=== PATIENT | male | born 1945 | race Caucasian/White ===

== ENCOUNTER 2020-01-15 10:02 | Outpatient (CLI) | payer MEDICARE, SELFPAY ==
[2020-01-15 12:46] LABS: Alanine Aminotransferase 19 U/L (4-50); Alkaline Phosphatase 97 U/L (38-126); Aspartate Amino Transferase 26 U/L (17-59); Blood Urea Nitrogen 24 mg/dL (9-20); Calcium 9.5 mg/dL (8.4-10.2); Carbon Dioxide 36 mmol/L (22-30); Chloride 103 mmol/L (98-107); Cholesterol 102 mg/dL (0-200); Estimated Glomerular Filt Rate 54; Glucose 95 mg/dL (75-110); HDL Direct 28 mg/dL; LDL Cholesterol Direct 61 mg/dL; Potassium 3.8 mmol/L (3.4-5.0); Sodium 143 mmol/L (137-145); Triglycerides 40 mg/dL (<150)
== END 2020-01-15 10:03 | disposition home or self-care (01) ==
LOC: ANHLAB 10:06
PROVIDERS: PCP Internal Medicine; Visit Provider Nurse Practitioner
DX: E78.5 Hyperlipidemia, unspecified (principal)
CPT/HCPCS: 36415; 80053; 80061

== ENCOUNTER 2020-01-26 13:26 | Outpatient (RCR) | payer MEDICARE, SELFPAY ==
--- NOTE | 2020-01-26 15:10 | PTOPEVAL ---
PHYSICAL THERAPY EVALUATION AND PLAN OF CARE 01-26-2020 The PT evaluation was completed today for the diagnosis of B LE lymphedema. His plan of treatment is scheduled 2-3 x/week for 6 weeks. Treatment will begin when he obtains the reduction, compression garment for his treatment. Thank you for referring Candido Gonzalez to [facility]. Please review, sign, date and return this plan of care [email or web address]. I agree with and certify that the following plan of care is medically necessary. Referring Physician Date Attending Provider: DO Sruthi DonaldsonPT Outpatient Evaluation Start: 01/26/20 13:42 Document 01/26/20 13:42 MARKUS (Rec: 01/26/20 15:07 MARKUS [id number]) Outpatient Past Medical History Past Medical History Source of Past Medical History Patient Neurological History Hx Neurological Disorders No Significant History Cardiovascular History Hx Atrial Fibrillation Yes Hx Hypercholesterolemia Yes Hx Hypertension Yes Hx Other Cardiac Disorders Yes: cardiac stents ~ 2011 Respiratory History Hx Other Respiratory Disorders Yes: seasonal allergies, SOB with exertion Gastrointestinal History Hx Gastrointestinal Disorders No Significant History Genitourinary History Hx Prostatectomy Yes Musculoskeletal History Hx Other Musculoskeletal Disorders Yes: 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 Endocrine History Hx Endocrine Disorders No Significant History HEENT History Hx Other HEENT Disorders Yes: decreased hearing L ear Integumentary History Hx Excision Skin Lesion Yes: R back- skin cancer removed Other History Hx Other Medical Conditions Yes: severe sun burn B lower legs- legs raw,blistered Evaluation Information Problem Diagnosis B LE lymphedema Onset 1 year Previous Treatments Previous Treatments For This Problem no previous treatment for lymphedema Prior Level of Function Activity Level (Last 3 Months) Occupation own tow truck, work varies, few hours/day to all day; drive truck Activity of Daily Living Ability Independent Indoor/Home Mobility Independent Community Mobility Independent Stairs Ability Independent Functional Cognition (Planning, Shopping Independent , Taking Medications) Cooking Yes Cleaning Yes Laundry Yes Shopping Yes Driving Yes Medications Home Meds (Include: OTC, RX, Vitamins, pradaxa, diltiazem, furosemide Herbals, Dose, Route,and Frequency) , toprol, potassium chlor, Query Text:Home Med En
--- NOTE | 2020-04-05 16:11 | PCPTNOTE ---
PHYSICAL THERAPY DISCHARGE 04-05-2020 Attending Provider: Jerry Reeves DO Patient:Candido Gonzalez Date of :1945 Candido has not returned for any further treatments since the initial PT evaluation on 01/26/2020, for the diagnosis of LE lymphedema. Therefore he will be discharged at this time. The goals have not been assessed. Thank you [facility]. Please review, sign, date and return this discharge summary [email or web address]. I have been updated about the patient's current status and I agree with discharge from the above service at this time. Referring Physician Date
== END 2020-04-06 07:45 | disposition home or self-care (01) ==
LOC: ANHPT 13:26
PROVIDERS: PCP Internal Medicine; Visit Provider Internal Medicine
DX: I89.0 Lymphedema, not elsewhere classified (principal)
CPT/HCPCS: 97161

== ENCOUNTER 2020-05-24 10:52 | Outpatient (CLI) | payer MEDICARE, SELFPAY ==
[2020-05-24 12:05] LABS: Anion Gap 10.99999 mmol/L (8-16); Blood Urea Nitrogen 40 mg/dL (9-20); Calcium 9.8 mg/dL (8.4-10.2); Carbon Dioxide > 40 mmol/L (22-30); Chloride 89 mmol/L (98-107); Estimated Glomerular Filt Rate 39; Glucose 93 mg/dL (75-110); Potassium 2.9 mmol/L (3.4-5.0); Sodium 140 mmol/L (137-145)
== END 2020-05-24 10:53 | disposition home or self-care (01) ==
PROVIDERS: PCP Internal Medicine; Visit Provider Internal Medicine Cardiovascular Disease
DX: I50.32 Chronic diastolic (congestive) heart failure (principal); I89.0 Lymphedema, not elsewhere classified
CPT/HCPCS: 36415; 80048

== ENCOUNTER 2020-06-04 08:04 | Outpatient (CLI) | payer MEDICARE, SELFPAY ==
[2020-06-04 08:45] LABS: Anion Gap 3 mmol/L (8-16); Blood Urea Nitrogen 19 mg/dL (9-20); Calcium 9.1 mg/dL (8.4-10.2); Carbon Dioxide 37 mmol/L (22-30); Chloride 102 mmol/L (98-107); Estimated Glomerular Filt Rate 54; Glucose 99 mg/dL (75-110); Potassium 4.1 mmol/L (3.4-5.0); Sodium 142 mmol/L (137-145)
== END 2020-06-04 08:05 | disposition home or self-care (01) ==
PROVIDERS: PCP Internal Medicine; Visit Provider Internal Medicine Cardiovascular Disease
DX: I89.0 Lymphedema, not elsewhere classified (principal)
CPT/HCPCS: 36415; 80048

== ENCOUNTER 2020-07-14 08:49 | Outpatient (CLI) | payer MEDICARE, SELFPAY ==
[2020-07-14 09:31] LABS: Anion Gap 4 mmol/L (8-16); Blood Urea Nitrogen 20 mg/dL (9-20); Calcium 9.2 mg/dL (8.4-10.2); Carbon Dioxide 36 mmol/L (22-30); Chloride 104 mmol/L (98-107); Estimated Glomerular Filt Rate 59; Glucose 92 mg/dL (75-110); Potassium 4.3 mmol/L (3.4-5.0); Sodium 144 mmol/L (137-145)
== END 2020-07-14 08:50 | disposition home or self-care (01) ==
PROVIDERS: PCP Internal Medicine; Visit Provider Nurse Practitioner Adult Health
DX: I89.0 Lymphedema, not elsewhere classified (principal)
CPT/HCPCS: 36415; 80048

== ENCOUNTER 2021-01-05 11:30 | Outpatient (CLI) | payer MEDICARE, SELFPAY ==
--- NOTE | ~2021-01-05 | XR_ITS ---
EXAMINATION: XR chest 2V DATE: 01/05/2021 11:47 INDICATION: Cough. TECHNIQUE: Frontal and lateral views of the chest were obtained. COMPARISON: Chest 2 views 08/04/2019 FINDINGS: There is blunting of the posterior costophrenic angles. No pneumonia or pneumothorax. Cardi omegaly is noted. There is mild chronic anterior wedging of multiple vertebral bodies. IMPRESSION: 1. Blunting of the posterior costophrenic angles, which may be scarring or tiny pleural effusions. 2. Cardiomegaly. Reviewed, dictated and finalized at location B.
[2021-01-05 12:04] LABS: Basophils Percent Auto 0.5 % (0.2-1.2); Eosinophils Absolute Auto 0.1 K/mm3 (0-0.3); Hematocrit 36.8 % (42.0-52.0); Hemoglobin 11.6 g/dL (14.0-18.0); Immature Granulocyte Absolute 0.01 K/mm3 (0.00-0.031); Immature Granulocyte Percent A 0.2 % (0-0.5); Lymphocytes Absolute Auto 0.93 K/mm3 (0.9-3.2); Lymphocytes Percent Auto 16.8 % (18.3-44.2); Mean Corpuscular HGB Conc 31.5 g/dl (32-36); Mean Corpuscular Hemoglobin 30.2 pg (26-34); Mean Corpuscular Volume 95.8 fl (80-100); Mean Platelet Volume 9.6 fl (7.4-10.4); Monocytes Absolute Auto 0.5 K/mm3 (0.1-0.6); Monocytes Percent Auto 9.4 % (2.6-8.5); Neutrophils Absolute Auto 3.9 K/mm3 (1.3-6.7); Neutrophils Percent Auto 71.1 % (45.5-73.1); Platelet Count Result 125 k/mm3 (150-375); Red Blood Count 3.84 M/mm3 (4.6-6.20); Red Cell Distribution Width 13.8 % (11.5-14.5); White Blood Count 5.5 K/mm3 (4.5-10.0)
[2021-01-05 12:53] LABS: Alanine Aminotransferase 19 U/L (4-50); Albumin Level 3.8 g/dL (3.5-5.1); Alkaline Phosphatase 86 U/L (38-126); Anion Gap 3 mmol/L (8-16); Aspartate Amino Transferase 23 U/L (17-59); Bilirubin,Total 1.2 mg/dL (0.2-1.3); Blood Urea Nitrogen 20 mg/dL (9-20); Calcium 9.6 mg/dL (8.4-10.2); Carbon Dioxide 36 mmol/L (22-30); Chloride 106 mmol/L (98-107); Cholesterol 106 mg/dL (0-200); Estimated Glomerular Filt Rate > 60; Glucose 87 mg/dL (75-110); HDL Direct 36 mg/dL; Potassium 4.1 mmol/L (3.4-5.0); Sodium 145 mmol/L (137-145); Triglycerides 39 mg/dL (<150)
[2021-01-05 13:04] LABS: LDL Cholesterol Direct 55 mg/dL
[2021-01-05 13:22] LABS: Thyroid Stimulating Hormone 0.432 uIU/mL (0.465-4.680)
== END 2021-01-05 11:31 | disposition home or self-care (01) ==
LOC: ANHIMG 11:30
PROVIDERS: PCP Internal Medicine; Visit Provider Nurse Practitioner
DX: I48.0 Paroxysmal atrial fibrillation (principal); R53.83 Other fatigue; E78.5 Hyperlipidemia, unspecified; D64.9 Anemia, unspecified; R05 Cough
CPT/HCPCS: 36415; 71046; 80053; 80061; 84443; 85025

== ENCOUNTER 2021-06-21 13:32 | Outpatient (CLI) | payer MEDICARE, SELFPAY ==
--- NOTE | ~2021-06-21 | US_ITS ---
EXAMINATION: US venous doppler LE BI EXAM DATE: 06/21/2021 14:44 INDICATION: Bilateral leg swelling. TECHNIQUE: Multiple grayscale, color flow and Doppler images of the lower extremity venous systems bi laterally were obtained and reviewed. Saphenous venous mapping. The exam was reviewed on 06/21/2021. There is no prior study for comparison. FINDINGS: Right side: The right common femoral, femoral and profunda veins demonstrate normal color flow, respi ratory variation, augmentation and compressibility. Compressibility, color flow confirmed within the right popliteal, posterior tibial, peroneal, and greater saphenous veins. Right calf edema. Right Standing Venous Mapping: reflux seconds duration; vein size. Greater saphenous origin: 0 seconds; 8.4 mm. Greater saphenous mid thigh:------ 1 second; 5.4 mm. Greater saphenous below knee:--- 1 seconds; 8.9 mm. Lesser saphenous proximally:------ 0 seconds; 5.5 mm. Lesser saphenous distally: 0 seconds; 3.6 mm. Left side: The left common femoral, femoral and profunda veins demonstrate normal color flow, respira tory variation, augmentation and compressibility. Compressibility, color flow confirmed within the l eft popliteal, posterior tibial, peroneal, and greater saphenous veins. Calf edema. Left Standing Venous Mapping: reflux seconds duration; vein size. Greater saphenous origin: 0 seconds; 9.1 mm. Greater saphenous mid thigh:------ 0 seconds; 7.0 mm. Greater saphenous below knee:--- 0.5 seconds; 5.5 mm. Lesser saphenous proximally:------ 0 seconds; 6.4 mm. Lesser saphenous distally: 1.5 seconds; 5.3 mm. IMPRESSION: 1. Bilateral venous reflux as above. 2. Bilateral calf edema. Reviewed, dictated and finalized at location A. [facility]
== END 2021-06-21 13:33 | disposition home or self-care (01) ==
LOC: ANHIMG 13:35
PROVIDERS: PCP Internal Medicine; Visit Provider Internal Medicine Cardiovascular Disease
DX: M79.89 Other specified soft tissue disorders (principal); R60.0 Localized edema
CPT/HCPCS: 93970

== ENCOUNTER 2021-07-08 10:02 | Outpatient (CLI) | payer MEDICARE, SELFPAY ==
[2021-07-08 10:45] LABS: Basophils Percent Auto 0.7 % (0.2-1.2); Eosinophils Absolute Auto 0.2 K/mm3 (0-0.3); Eosinophils Percent Auto 2.9 % (0-4.4); Hematocrit 38.4 % (42.0-52.0); Hemoglobin 12.4 g/dL (14.0-18.0); Immature Granulocyte Absolute 0.01 K/mm3 (0.00-0.031); Immature Granulocyte Percent A 0.2 % (0-0.5); Immature Platelet Fraction Pct 2.4 % (0.9-11.2); Lymphocytes Percent Auto 17.9 % (18.3-44.2); Mean Corpuscular HGB Conc 32.3 g/dl (32-36); Mean Corpuscular Volume 99.2 fl (80-100); Mean Platelet Volume 9.8 fl (7.4-10.4); Monocytes Absolute Auto 0.5 K/mm3 (0.1-0.6); Monocytes Percent Auto 8.9 % (2.6-8.5); Neutrophils Absolute Auto 3.9 K/mm3 (1.3-6.7); Neutrophils Percent Auto 69.4 % (45.5-73.1); Platelet Count Result 140 k/mm3 (150-375); Red Blood Count 3.87 M/mm3 (4.6-6.20); Red Cell Distribution Width 13.4 % (11.5-14.5); White Blood Count 5.6 K/mm3 (4.5-10.0)
[2021-07-08 10:54] LABS: Alanine Aminotransferase 17 U/L (4-50); Albumin Level 3.6 g/dL (3.5-5.1); Alkaline Phosphatase 80 U/L (38-126); Anion Gap 2 mmol/L (8-16); Aspartate Amino Transferase 22 U/L (17-59); Bilirubin,Total 0.7 mg/dL (0.2-1.3); Blood Urea Nitrogen 22 mg/dL (9-20); Calcium 9.4 mg/dL (8.4-10.2); Carbon Dioxide 38 mmol/L (22-30); Chloride 100 mmol/L (98-107); Cholesterol 95 mg/dL (0-200); Estimated Glomerular Filt Rate 59; Glucose 96 mg/dL (65-110); HDL Direct 32 mg/dL; Potassium 4.2 mmol/L (3.4-5.0); Sodium 140 mmol/L (137-145); Triglycerides 36 mg/dL (<150)
[2021-07-08 11:05] LABS: LDL Cholesterol Direct 51 mg/dL
== END 2021-07-08 10:03 | disposition home or self-care (01) ==
LOC: ANHLAB 10:10
PROVIDERS: PCP Internal Medicine; Referring Provider Internal Medicine Cardiovascular Disease; Visit Provider Nurse Practitioner
DX: D64.9 Anemia, unspecified (principal); I48.0 Paroxysmal atrial fibrillation; E78.5 Hyperlipidemia, unspecified
CPT/HCPCS: 36415; 80053; 80061; 85025; 85055

== ENCOUNTER 2022-01-12 13:28 | Outpatient (CLI) | payer MEDICARE, SELFPAY ==
[2022-01-12 14:35] LABS: Hematocrit 39.8 % (42.0-52.0); Hemoglobin 12.6 g/dL (14.0-18.0)
[2022-01-12 14:38] LABS: Alanine Aminotransferase 16 U/L (6-50); Albumin Level 3.9 g/dL (3.5-5.1); Alkaline Phosphatase 94 U/L (38-126); Anion Gap 4 mmol/L (8-16); Aspartate Amino Transferase 25 U/L (17-59); Bilirubin,Total 1.4 mg/dL (0.2-1.3); Blood Urea Nitrogen 22 mg/dL (9-20); Carbon Dioxide 34 mmol/L (22-30); Chloride 103 mmol/L (98-107); Cholesterol 106 mg/dL (0-200); Estimated Glomerular Filt Rate > 60; Glucose 88 mg/dL (65-110); HDL Direct 34 mg/dL; Sodium 141 mmol/L (137-145); Triglycerides 46 mg/dL (<150)
[2022-01-12 14:49] LABS: LDL Cholesterol Direct 60 mg/dL
[2022-01-12 16:17] LABS: Thyroid Stimulating Hormone 0.558 uIU/mL (0.465-4.680)
== END 2022-01-12 13:29 | disposition home or self-care (01) ==
LOC: ANHLAB 13:29
PROVIDERS: PCP Internal Medicine; Visit Provider Internal Medicine
DX: D64.9 Anemia, unspecified (principal); I25.10 Atherosclerotic heart disease of native coronary artery without angina pectoris; I10 Essential (primary) hypertension; E78.5 Hyperlipidemia, unspecified; I48.0 Paroxysmal atrial fibrillation; R79.89 Other specified abnormal findings of blood chemistry
CPT/HCPCS: 36415; 80053; 80061; 84443; 85014; 85018

== ENCOUNTER 2022-02-01 12:22 | Inpatient (IN) | payer MEDICARE, SELFPAY ==
[2022-02-01] VITALS (13 sets, daily range): BP systolic 103–142; BP diastolic 57–77; PULSE 58–84; RESP 16–23; TEMP 36.1–36.6; O2SAT 94–100
--- NOTE | ~2022-02-01 | CT_ITS ---
EXAMINATION: CT facial & cervical spine wo DATE: 02/01/2022 12:55 INDICATION: Head injury. TECHNIQUE: Computed tomography (CT) of the maxillofacial region and cervical spine was performed with out intravenous contrast. Automated exposure control and iterative reconstruction technique were empl oyed. The dose-length product was 655.73 mGy-cm. COMPARISON: None FINDINGS: MAXILLOFACIAL CT: There is a hematoma of the forehead. There is mild mucosal thickening in the paranasal sinuses. There are likely changes of ocular lens replacement surgeries. There is a nondisplaced fracture of left na tulio bone. CERVICAL SPINE CT: There is 2 mm retrolisthesis of C3 on C4. Vertebral body heights are normal. There is moderately decr eased disc height at C3-C4. The following disc levels are specifically discussed: C2-C3: There is mild bilateral uncovertebral joint osteoarthritis. There is moderate right and severe left facet joint osteoarthritis. There is no neural foraminal stenosis. There is no central canal st enosis. C3-C4: There is severe bilateral uncovertebral joint osteoarthritis. There is mild bilateral facet halina int osteoarthritis. There is severe bilateral neural foraminal stenosis. There is mild central canal stenosis. C4-C5: There is mild bilateral uncovertebral joint osteoarthritis. There is moderate right and severe left facet joint osteoarthritis. There is mild bilateral neural foraminal stenosis. There is mild ce ntral canal stenosis. C5-C6: There is no uncovertebral joint osteoarthritis. There is mild right and severe left facet join t osteoarthritis. There is mild bilateral neural foraminal stenosis. There is no central canal stenos is. C6-C7: There is no uncovertebral joint osteoarthritis. There is mild bilateral facet joint osteoarthr itis. There is mild left neural foraminal stenosis. There is no central canal stenosis. C7-T1: There is no uncovertebral joint osteoarthritis. There is moderate bilateral facet joint osteoa rthritis. There is mild left neural foraminal stenosis. There is no central canal stenosis. IMPRESSION: 1. Fracture of left nasal bone. 2. Moderate cervical spondylosis. Reviewed, dictated and finalized at location A.
--- NOTE | ~2022-02-01 | XR_ITS ---
EXAMINATION: XR chest 1V DATE: 02/01/2022 12:58 INDICATION: Fall TECHNIQUE: frontal view of the chest was obtained. COMPARISON: Chest radiograph dated 01/05/2021 FINDINGS: Cardiomegaly with pulmonary vascular congestion. Mild opacities in the right upper lung zone and left perihilar region. No pleural effusion or pneumothorax. 1 cm calcification in the right upper quadran t. There are bridging osteophytes at multiple levels in the spine, consistent with diffuse idiopathic skeletal hyperostosis (DISH). IMPRESSION: 1. Cardiomegaly with pulmonary vascular congestion. 2. Mild opacities in the right upper lung zone and left perihilar region which could represent atelec tasis, mild pulmonary edema or pneumonia. 2. 1 cm opacity in right upper quadrant which could represent a gallstone, renal stone, diverticulum or material within the fecal stream. Reviewed, dictated and finalized at location B. IMPRESSION: 1. Cardiomegaly with pulmonary vascular congestion. 2. Mild opacities in the right upper lung zone and left perihilar region which could represent atelectasis, mild pulmonary edema or pneumonia. 2. 1 cm opacity in right upper quadrant which could represent a gallstone, kait l stone, diverticulum or material within the fecal stream.
--- NOTE | ~2022-02-01 | CT_ITS ---
EXAMINATION: CT brain wo con DATE: 02/01/2022 12:55 INDICATION: Unsteady gait. Face injury. TECHNIQUE: Computed tomography (CT) of the head was performed without intravenous contrast. The mA wa s adjusted according to patient size. Iterative reconstruction technique was employed. The dose-lengt h product was 681.00 mGy-cm. COMPARISON: None FINDINGS: There is no intracranial hemorrhage, acute infarction, or abnormal intracranial mass lesion . The ventricles are normal in size. There are likely changes of ocular lens replacement surgeries. T here is mild mucosal thickening in the paranasal sinuses. There is a hematoma at the forehead. The ma stoid air cells are normal. IMPRESSION: 1. Normal brain. Reviewed, dictated and finalized at location A. IMPRESSION: 1. Normal brain.
--- NOTE | ~2022-02-01 | XR_ITS ---
EXAMINATION: XR pelvis 1-2V DATE: 02/01/2022 12:58 INDICATION: Pelvis injury. TECHNIQUE: An anteroposterior view of the pelvis was obtained. COMPARISON: None. FINDINGS: Bone alignment is normal. No fracture. There is mild osteoarthritis of the hips. There is m oderate lumbar spondylosis. IMPRESSION: 1. No fracture. 2. Mild osteoarthritis of the hips. Reviewed, dictated and finalized at location A.
--- NOTE | 2022-02-01 12:34 | ED.FALL ---
HPI - Fall General Chief Complaint: Fall Stated Complaint: fall Source: RN notes reviewed History of Present Illness HPI Narrative: Patient presents emergency department from home via EMS for fall. Patient states that he was standing when he lost his balance and fell onto concrete. States that he hit his head at that time and has a swelling and ecchymosis over the forehead as well as abrasions over the forehead and nose and upper lip also with abrasions to the right hand he denies any loss of consciousness states he is on Pradaxa. He denies any chest pain shortness of breath abdominal pain, nausea vomiting numbness or tingling extremities or any other symptoms. Unsure of his last tetanus shot. Related Data Home Medications Medication Instructions Recorded Confirmed atorvastatin 40 mg tablet 40 mg PO 1700 08/04/19 02/01/22 dabigatran etexilate 150 mg 150 mg PO BID 08/04/19 02/01/22 capsule (Pradaxa) metoprolol succinate 50 mg 100 mg PO 1700 08/04/19 02/01/22 tablet,extended release 24 hr potassium chloride 10 mEq 10 meq PO 0 08/04/19 02/01/22 tablet,extended release (Klor-Con) diltiazem HCl 180 mg 180 mg PO DAILY 01/05/21 02/01/22 capsule,extended release 24 hr terazosin 10 mg capsule 10 mg PO 1700 02/01/22 02/01/22 Allergies Allergy/AdvReac Type Severity Reaction Status Date / Time dutasteride Allergy Unknown Unknown Verified 02/01/22 18:04 finasteride Allergy Unknown Unknown Verified 02/01/22 18:04 Penicillins Allergy Unknown Unknown Verified 02/01/22 18:04 Review of Systems Review of Systems: Gen.: Denies fevers or chills Eyes: Denies eye pain or visual change ENT: Reports head injury Respiratory: Denies shortness of breath or cough CV: Denies chest pain or palpitations GI: Denies abdominal pain nausea, emesis or diarrhea Musculoskeletal: Denies back pain or muscle pain Neuro: Denies numbness, tingling, weakness or focal weakness Skin: See HPI Except as documented, all other systems reviewed and negative [facility] Past Medical History Medical History (Updated 02/01/22 @ 19:37 by Ramiro Escudero DO) Essential (primary) hypertension Family History Family History (Updated 02/01/22 @ 17:56 by Tracy Fontanez RN) Father Patient's father is Carcinoma of colon Mother Heart disease Grandparent Cerebrovascular accident Social History Social History Smoking status: Never smoker Alcohol intake: never Substance use: never Spiritual care concerns: Yes Exam Narrative: APPEARANCE: No acute distress, nontoxic, resting in bed EYES: EOMI HEENT: Normocephalic, swelling and ecchymosis over the anterior forehead superficial abrasions over the bridge of the nose as well as the anterior forehead there is a small 1 cm curved laceration of the left upper lobe with mild venous bleeding no foreign bodies nares are patent oral mucosa moist Neck: C-collar present no midline tenderness palpation tender palpation by paravertebral muscles C5-6-7 RESPIRATORY: No respiratory distress Clear to auscultation bilaterally with no rhonchi wheezing or rales. CARDIOVASCULAR: Regular rate and rhythm without murmurs rubs or gallops. ABDOMINAL: Soft, nontender, nondistended, no rebound or guarding MUSCULOSKELETAl: Moves all extremities. No clubbing, cyanosis or edema. No tender to palpation of bilateral upper and lower extremities with full range of motion of both Back: No midline thoracic or lumbar tenderness palpation NEURO: Awake and alert x 4. Following commands, speech normal, no focal deficits SKIN:: Warm, dry. Superficial skin tears over the dorsal aspect of the left hand mild venous bleeding no foreign bodies or signs of infection PSYCHIATRIC: Normal affect/mood, Course Course Emergency Course: Patient attempted road test very unsteady on feet and had to be constantly assisted by ED staff patient states he does not walk with a cane or walker
[2022-02-01] MEDS: TETANUS,DIPHTHERIA,AC PERTUSSIS ADULT (0.5 ML) BOOSTRIX IM (13:11)
--- NOTE | 2022-02-01 14:02 | PC.NURSE ---
wounds cleaned with NS TRIPLE ANTIBX PLACED, BANDAIDS APPLIED
[2022-02-01 14:43] LABS: Basophils Percent Auto 0.4 % (0.2-1.2); Eosinophils Absolute Auto 0.1 K/mm3 (0-0.3); Eosinophils Percent Auto 0.6 % (0-4.4); Hematocrit 39.2 % (42.0-52.0); Hemoglobin 12.5 g/dL (14.0-18.0); Immature Granulocyte Absolute 0.02 K/mm3 (0.00-0.031); Immature Granulocyte Percent A 0.2 % (0-0.5); Lymphocytes Absolute Auto 0.75 K/mm3 (0.9-3.2); Lymphocytes Percent Auto 8.9 % (18.3-44.2); Mean Corpuscular HGB Conc 31.9 g/dl (32-36); Mean Corpuscular Hemoglobin 30.4 pg (26-34); Mean Corpuscular Volume 95.4 fl (80-100); Mean Platelet Volume 9.6 fl (7.4-10.4); Monocytes Absolute Auto 0.6 K/mm3 (0.1-0.6); Monocytes Percent Auto 7.5 % (2.6-8.5); Neutrophils Percent Auto 82.4 % (45.5-73.1); Platelet Count Result 153 k/mm3 (150-375); Red Blood Count 4.11 M/mm3 (4.6-6.20); Red Cell Distribution Width 13.8 % (11.5-14.5); White Blood Count 8.4 K/mm3 (4.5-10.0)
[2022-02-01 14:51] LABS: Alanine Aminotransferase 16 U/L (6-50); Albumin Level 3.7 g/dL (3.5-5.1); Alkaline Phosphatase 95 U/L (38-126); Anion Gap 5 mmol/L (8-16); Aspartate Amino Transferase 21 U/L (17-59); Bilirubin,Total 1.4 mg/dL (0.2-1.3); Blood Urea Nitrogen 20 mg/dL (9-20); Calcium 8.9 mg/dL (8.4-10.2); Carbon Dioxide 34 mmol/L (22-30); Chloride 103 mmol/L (98-107); Estimated CRCL calculation 68 ml/min; Estimated Glomerular Filt Rate > 60; Glucose 106 mg/dL (65-110); Potassium 3.9 mmol/L (3.4-5.0); Sodium 142 mmol/L (137-145)
[2022-02-01 14:57] LABS: Prothrombin Time 21.6 Seconds (11.1-14.7)
[2022-02-01 14:58] LABS: Partial Thromboplastin Time 55.3 SECONDS (22.3-36.8)
[2022-02-01 15:03] LABS: NT Pro B Type Natriuretic Pept 808 pg/mL (5-100); Troponin I < 0.012 ng/mL (0.000-0.034)
--- NOTE | 2022-02-01 15:08 | PC.NURSE ---
PT IS HIGH FALL RISK, PT GAIT IS OFF. HAS TROUBLE COMPETING ADL SAFELY
[2022-02-01] MEDS: FUROSEMIDE INJ 40 MG/4 ML VIAL IV PUSH (16:04)
--- NOTE | 2022-02-01 17:20 | PC.NURSE ---
This patient, Candido Gonzalez, was admitted to 3 [facility] Surg Room 303-01. Patient/family oriented to hospital policies and general routines including ID bracelet, bed and alarms, visiting hours, pain management, procedures, bathroom and other care routines, personal items, smoking policy, room service/diet, and visiting hours. Report received from Derrick INGRAM Information on how to activate the Rapid Response Team has been discussed. Patient/Family are encouraged to report perceived risks to care and to ask questions if they do not understand what they are told or what they should do.
[2022-02-01 18:04] LABS: Appearance Urine Slightly Cloudy (Clear); Bilirubin Urine Negative (Negative); Color Urine Yellow (Yellow); Glucose Urine UA Negative (Negative); Ketones Urine Negative (Negative); Leukocyte Esterase Ur Trace LEU/UL (Negative); Nitrate Urine Negative (Negative); Protein Urine Negative (Negative)
[2022-02-01 18:10] LABS: Add Urine Microscopic? YES; Bacteria Urine Trace /hpf; Blood Urine Trace-Intact (Negative); RBC Urine 0-2 /hpf (0-2); Squamous Epithelial Cell Urine Rare /hpf (Few); WBC Urine 0-3 /hpf
[2022-02-01 19:20] LABS: Troponin I < 0.012 ng/mL (0.000-0.034)
--- NOTE | 2022-02-01 20:57 | PM.IMHP ---
H&P: HPI History of Present Illness Date/Time: Patient was placed observation status for expected length of stay less than 23 hours for management, will plan to re-evaluate tomorrow for improvement. 02/01/22 20:57 Chief Complaint: Fall Narrative: Mr. Gonzalez is a 76-year-old gentleman who presented emergency room after falling and hitting his head on concrete. 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 Patient states that he was having intense pain to his nose and forehead and was able to use his telephone because he could not see clearly. Patient's spouse states that she was inside and did not know what was going on because she was watching [employer]. Patient states he was finally able to get assistance and EMS was called. Patient was then transported to the hospital and he was evaluated emergency room. Patient denies any chest pain, shortness a breath, lightheadedness, dizziness, syncopal, or near syncopal episodes. Patient states that he just tripped over his own feet. Patient states that he has issues walking in general. Patient states he has felt weak for quite some time and has not been ambulating as far as he used to. Patient denies using a walker or a cane for assistance. Patient states that he will [place] is close to a building as he can and avoid walking any long distances. Patient states he has a known history of chronic lymphedema and this makes it very difficult for him to walk because his legs feel very heavy. Upon evaluation in emergency room patient was noted to have significant swelling to his forehead and epistaxis. Patient states he has been taking all medications without any difficulty. Patient has a known history of chronic atrial fibrillation on anticoagulation. Patient also has a known history of COPD, hypertension, chronic lymphedema, BPH, coronary artery disease status post bare metal stent to the RCA in 2010, diastolic heart failure, and sleep apnea with no CPAP use because he ?did not want a full with the machine?. Review of Systems Review of Systems: A 12 point review of systems was completed patient all pertinent positive and negative per HPI the remainder are unremarkable. [facility] Past Medical History Medical History (Updated 02/01/22 @ 21:31 by Zeenat Guzman APRN) BPH (benign prostatic hyperplasia) CHF (congestive heart failure) Diastolic dysfunction Chronic atrial fibrillation Chronic obstructive pulmonary disease, unspecified Essential (primary) hypertension Lymphedema of both lower extremities Sleep apnea Family History Family History (Updated 02/01/22 @ 17:56 by Tracy Fontanez, NATALY) Father Patient's father is Carcinoma of colon Mother Heart disease Grandparent Cerebrovascular accident Social History Social History Smoking status: Never smoker Alcohol intake: never Substance use: never Spiritual care concerns: Yes Meds Home Medications and Allergies Home Medications Medication Instructions Recorded Confirmed Type atorvastatin 40 mg tablet 40 mg PO 1700 08/04/19 02/01/22 History dabigatran etexilate 150 mg 150 mg PO BID 08/04/19 02/01/22 History capsule (Pradaxa) metoprolol succinate 50 mg 100 mg PO 1700 08/04/19 02/01/22 History tablet,extended release 24 hr potassium chloride 10 mEq 10 meq PO 1700 08/04/19 02/01/22 History tablet,extended release (Klor-Con) furosemide 40 mg tablet 60 mg PO QAM #30 tabs 01/20/20 02/01/22 Rx diltiazem HCl 180 mg 180 mg PO DAILY 01/05/21 02/01/22 History capsule,extended release 24 hr terazosin 10 mg capsule 10 mg PO 1700 02/01/22 02/01/22 History Allergies Allergy/AdvReac Type Severity Reaction Status Date / Time dutasteride Allergy Unknown Unknow
[2022-02-01] MEDS: POTASSIUM CHLORIDE 10 MEQ TABLET.ER PO (21:21)
[2022-02-01] MEDS: METOPROLOL SUCCINATE EXT REL 50 MG TABCR 100 MG PO (21:21)
[2022-02-01] MEDS: ATORVASTATIN 40 MG TABLET PO (21:22)
[2022-02-01] MEDS: TERAZOSIN HCL 5 MG CAPSULE 10 MG PO (21:22)
[2022-02-01 21:40] LABS: Troponin I < 0.012 ng/mL (0.000-0.034)
[2022-02-02] VITALS (10 sets, daily range): BP systolic 106–116; BP diastolic 42–63; PULSE 63–77; RESP 16–20; TEMP 36–36.8; O2SAT 95–99
[2022-02-02 07:20] LABS: Basophils Percent Auto 0.4 % (0.2-1.2); Eosinophils Absolute Auto 0.1 K/mm3 (0-0.3); Eosinophils Percent Auto 1.4 % (0-4.4); Hematocrit 34.9 % (42.0-52.0); Hemoglobin 11.1 g/dL (14.0-18.0); Immature Granulocyte Absolute 0.02 K/mm3 (0.00-0.031); Immature Granulocyte Percent A 0.3 % (0-0.5); Lymphocytes Absolute Auto 0.93 K/mm3 (0.9-3.2); Lymphocytes Percent Auto 12.9 % (18.3-44.2); Mean Corpuscular HGB Conc 31.8 g/dl (32-36); Mean Corpuscular Hemoglobin 30.7 pg (26-34); Mean Corpuscular Volume 96.7 fl (80-100); Mean Platelet Volume 9.8 fl (7.4-10.4); Monocytes Absolute Auto 0.7 K/mm3 (0.1-0.6); Monocytes Percent Auto 9.2 % (2.6-8.5); Neutrophils Absolute Auto 5.5 K/mm3 (1.3-6.7); Neutrophils Percent Auto 75.8 % (45.5-73.1); Platelet Count Result 112 k/mm3 (150-375); Red Blood Count 3.61 M/mm3 (4.6-6.20); Red Cell Distribution Width 13.8 % (11.5-14.5); White Blood Count 7.2 K/mm3 (4.5-10.0)
[2022-02-02 07:34] LABS: Alanine Aminotransferase 14 U/L (6-50); Albumin Level 3.1 g/dL (3.5-5.1); Alkaline Phosphatase 79 U/L (38-126); Anion Gap 0 mmol/L (8-16); Aspartate Amino Transferase 21 U/L (17-59); Bilirubin,Total 1.2 mg/dL (0.2-1.3); Blood Urea Nitrogen 21 mg/dL (9-20); Calcium 8.5 mg/dL (8.4-10.2); Carbon Dioxide 36 mmol/L (22-30); Chloride 104 mmol/L (98-107); Estimated CRCL calculation 68 ml/min; Estimated Glomerular Filt Rate > 60; Glucose 97 mg/dL (65-110); Potassium 3.7 mmol/L (3.4-5.0); Sodium 140 mmol/L (137-145)
[2022-02-02] MEDS: FUROSEMIDE 20 MG TABLET 60 MG PO (08:37)
[2022-02-02] MEDS: DABIGATRAN ETEXILATE 150 MG CAPSULE PO (08:37)
[2022-02-02] MEDS: dilTIAZem HCL CD 180 MG CAP.ER.24H PO (08:37)
--- NOTE | 2022-02-02 16:11 | PM.IMPN ---
Progress Note: A&P Assessment and Plan (1) Fall: Code(s): W19.XXXA - Unspecified fall, initial encounter Status: Acute Assessment and Plan: Patient had a fall where he face-planted on the concrete. Denied precipitating symptoms Reports he lost his balance Implement fall precautions (2) Weakness: Code(s): R53.1 - Weakness Status: Acute Assessment and Plan: Patient states that weakness is a chronic issue for him due to his swollen lower extremties but seems to be worsened recently Appreciate PT/OT evals TSH normal. Check B12 and folate. (3) Lymphedema of both lower extremities: Code(s): I89.0 - Lymphedema, not elsewhere classified Status: Acute Assessment and Plan: Patient has chronic lymphedema. Patient has been seen by provider for this issue in the past and has been told that he will need compression stockings. Patient has been unable to obtain compression stockings because that he has not been able to find any Abhijit compression stockings if it. He may benefit from lymphedema pumps May attempt Abhijit wraps to the lower extremities that can be custom fit (4) Closed fracture nasal bone: Code(s): S02.2XXA - Fracture of nasal bones, initial encounter for closed fracture Status: Acute Assessment and Plan: On CT patient has a nondisplaced fracture of the left nasal bone secondary to fall No further intervention is needed at this time. Supportive care (5) Chronic atrial fibrillation: Code(s): I48.20 - Chronic atrial fibrillation, unspecified Status: Acute Assessment and Plan: Rate is controlled Continue metoprolol and diltiazem Will hold dabigatran due to large hematoma CHADS2-VASC score is 4. HAS-BLED score is 2. Will plan to resume dabigatran. Patient would like to continue with anticoagulation. Subjective Date/time seen: 02/02/22 16:11 Interval history: Date of service: 02/02/2022 Candido Gonzalez is a 76-year-old male with a history of CHF, atrial fibrillation on chronic anticoagulation, BPH, COPD, hypertension, LEISA, and lymphedema of bilateral lower extremities who is seen in follow up for generalized weakness secondary to fall. Patient states he lost his balance. He denied precipitating symptoms prior to fall. He is feeling well today. He has no facial pain but does endorse pretty significant swelling. His main concern at this time is that he cannot see very well without his glasses on. He is not able to wear glasses due to his facial swelling, and also he does not have the glasses with him. He denies headache. Denies visual changes including blurred vision or double vision. He does endorse neck stiffness due to lying in the bed. He does endorse feeling weak. He denies dizziness or lightheadedness. Denies abdominal pain, nausea, or vomiting. He denies urinary symptoms including dysuria or hematuria. He does have issues with urinary stream secondary to BPH. Review of Systems Review of Systems: All systems reviewed & are unremarkable except as noted in HPI and below Exam Narrative: General: well-nourished, well-appearing 76-year-old male, sitting up in bed, comfortable, NARD Neuro: awake, alert and oriented x4, speech clear, no focal neuro deficits noted HEENMT: normocephalic, atraumatic, EOMI, no subjunctovial hemorrhage or hypema, sclerae anicteric Respiratory: clear to auscultation bilaterally, nonlabored breathing Cardio: regular rate, regular rhythm with S1-S2 Abdomen: nondistended, normoactive bowel sounds, soft, nontender to palpation Extremities: 2+ edema of bilateral lower extremities, no erythema or tenderness to palpation Skin: abrasion of anterior forehead and nasal bridge with dried blood and edema, small abrasion of left upper lip, significant bilateral periorbital edema Psych: appropriate mood and affect, judgment and insight intact Objective Data Vital Signs Vit
[2022-02-02] MEDS: ATORVASTATIN 40 MG TABLET PO (17:47)
[2022-02-02] MEDS: METOPROLOL SUCCINATE EXT REL 50 MG TABCR 100 MG PO (17:47)
[2022-02-02] MEDS: TERAZOSIN HCL 5 MG CAPSULE 10 MG PO (17:47)
[2022-02-02] MEDS: POTASSIUM CHLORIDE 10 MEQ TABLET.ER PO (17:47)
[2022-02-02] MEDS: ACETAMINOPHEN 325 MG TABLET 650 MG PO (20:38)
[2022-02-03] VITALS (9 sets, daily range): BP systolic 102–118; BP diastolic 51–66; PULSE 54–80; RESP 16–20; TEMP 36.7–37; O2SAT 97–99; BMI 38.4
[2022-02-03 05:32] LABS: Hematocrit 33.7 % (42.0-52.0); Hemoglobin 10.9 g/dL (14.0-18.0); Mean Corpuscular HGB Conc 32.3 g/dl (32-36); Mean Corpuscular Hemoglobin 30.9 pg (26-34); Mean Corpuscular Volume 95.5 fl (80-100); Mean Platelet Volume 9.9 fl (7.4-10.4); Platelet Count Result 106 k/mm3 (150-375); Red Blood Count 3.53 M/mm3 (4.6-6.20); Red Cell Distribution Width 13.7 % (11.5-14.5); White Blood Count 6.2 K/mm3 (4.5-10.0)
[2022-02-03 05:44] LABS: Anion Gap 1 mmol/L (8-16); Blood Urea Nitrogen 25 mg/dL (9-20); Calcium 8.6 mg/dL (8.4-10.2); Carbon Dioxide 36 mmol/L (22-30); Chloride 103 mmol/L (98-107); Estimated CRCL calculation 68 ml/min; Estimated Glomerular Filt Rate > 60; Glucose 107 mg/dL (65-110); Potassium 3.8 mmol/L (3.4-5.0); Sodium 140 mmol/L (137-145)
[2022-02-03] MEDS: ACETAMINOPHEN 325 MG TABLET 650 MG PO ×2 (06:14→20:39)
[2022-02-03 06:47] LABS: Folic Acid 7.8 ng/mL (2.76->20)
[2022-02-03] MEDS: dilTIAZem HCL CD 180 MG CAP.ER.24H PO (09:12)
[2022-02-03] MEDS: FUROSEMIDE 20 MG TABLET 60 MG PO (09:12)
[2022-02-03] MEDS: CYANOCOBALAMIN 1,000 MCG TABLET 1000 MCG PO (10:02)
--- NOTE | 2022-02-03 14:49 | PCCCNOTE ---
On 02/03/22, the student, [Sandra Meneses], provided care and completed [facility] documentation on this patient. I have reviewed the student's documentation and agree with the findings.
--- NOTE | 2022-02-03 15:08 | PM.IMPN ---
Progress Note: A&P Assessment and Plan (1) Fall: Code(s): W19.XXXA - Unspecified fall, initial encounter Status: Acute Assessment and Plan: Patient had a fall where he face-planted on the concrete. Denied precipitating symptoms Reports he lost his balance Head CT with no acute findings Cervical spine CT with moderate cervical spondylosis however no acute injury Pelvic x-ray with no fracture Fall precautions in place (2) Weakness: Code(s): R53.1 - Weakness Status: Acute Assessment and Plan: Patient states that weakness is a chronic issue for him due to his swollen lower extremties but seems to be worsened recently Appreciate PT/OT evals TSH normal. B12 low end of normal. Will initiate supplementation. Cyanocobalamin 1000 mcg daily. Folate wnl. Home health services have been arranged (3) Closed fracture nasal bone: Code(s): S02.2XXA - Fracture of nasal bones, initial encounter for closed fracture Status: Acute Assessment and Plan: On CT patient has a nondisplaced fracture of the left nasal bone secondary to fall No further intervention is needed at this time. Supportive care (4) Lymphedema of both lower extremities: Code(s): I89.0 - Lymphedema, not elsewhere classified Status: Acute Assessment and Plan: Patient has unchanged chronic lymphedema. In the process of obtaining lymphedema pumps from his primary care provider. He will benefit from these Elevate extremities (5) Chronic atrial fibrillation: Code(s): I48.20 - Chronic atrial fibrillation, unspecified Status: Acute Assessment and Plan: Rate is controlled Continue metoprolol and diltiazem Patient on dabigatran for stroke prophylaxis. Discussed at length with patient and family risks versus benefits of continued anticoagulation especially given the patient's recent fall. CHADS2-VASC score is 4. HAS-BLED score is 2. Patient reports this was his first fall in many years. He does not seem to be at high risk for falls. At this time risk of stroke seems greater than risk of bleed. Patient feels strongly in favor of continuing dabigatran. Family in agreement. Resume dabigatran (6) Thrombocytopenia: Code(s): D69.6 - Thrombocytopenia, unspecified Status: Acute Assessment and Plan: Review of prior labs suggest this to be a chronic issue May be due to dabigatran Continue to monitor CBC Subjective Date/time seen: 02/03/22 15:08 Interval history: Date of service: 02/03/2022 Candido Gonzalez is a 76-year-old male with a history of CHF, atrial fibrillation on chronic anticoagulation, BPH, COPD, hypertension, LEISA, and lymphedema of bilateral lower extremities who is seen in follow up for generalized weakness and fall. He is doing well today. He continues to endorse rather significant facial swelling and bruising. He is having troubles with his vision still because he cannot wear his glasses. He denies visual changes including double vision, blurred vision, or tunnel vision. His neck is feeling stiff and he is having a hard time turning his head from side to side. He denies numbness or tingling in his extremities. He denies headache. Denies confusion. He was able to ambulate today with physical therapy and seemed to do well with this. He felt that his legs were a bit weak and at times he thought they might ?give out on him but he was able to remain steady. He had a bowel movement today. He denies urinary symptoms. His appetite has been good. Denies nausea, vomiting, fever, or chills. Review of Systems Review of Systems: All systems reviewed & are unremarkable except as noted in HPI and below Exam Narrative: General: well-nourished, well-appearing 76-year-old male, sitting in a chair by the bedside ADA abrams Neuro: awake, alert and oriented x4, speech clear, no focal neuro deficits noted ORALIA
[2022-02-03] MEDS: POTASSIUM CHLORIDE 10 MEQ TABLET.ER PO (16:33)
[2022-02-03] MEDS: ATORVASTATIN 40 MG TABLET PO (16:33)
[2022-02-03] MEDS: TERAZOSIN HCL 5 MG CAPSULE 10 MG PO (16:35)
[2022-02-03] MEDS: METOPROLOL SUCCINATE EXT REL 50 MG TABCR 100 MG PO (16:35)
[2022-02-04] VITALS: PULSE 54
[2022-02-04 04:00] VITALS: PULSE 64
[2022-02-04 05:26] VITALS: BP 120/61; PULSE 80; RESP 16; TEMP 36.7; O2SAT 98
[2022-02-04 06:35] LABS: Hematocrit 34.1 % (42.0-52.0); Hemoglobin 10.9 g/dL (14.0-18.0); Mean Corpuscular Hemoglobin 31.1 pg (26-34); Mean Corpuscular Volume 97.4 fl (80-100); Mean Platelet Volume 10.1 fl (7.4-10.4); Platelet Count Result 112 k/mm3 (150-375); Red Cell Distribution Width 13.9 % (11.5-14.5); White Blood Count 6.4 K/mm3 (4.5-10.0)
[2022-02-04 07:05] LABS: Anion Gap 1 mmol/L (8-16); Blood Urea Nitrogen 25 mg/dL (9-20); Calcium 8.3 mg/dL (8.4-10.2); Carbon Dioxide 36 mmol/L (22-30); Chloride 102 mmol/L (98-107); Estimated CRCL calculation 77 ml/min; Estimated Glomerular Filt Rate > 60; Glucose 89 mg/dL (65-110); Potassium 3.9 mmol/L (3.4-5.0); Sodium 139 mmol/L (137-145)
[2022-02-04 08:00] VITALS: PULSE 79
[2022-02-04] MEDS: dilTIAZem HCL CD 180 MG CAP.ER.24H PO (08:51)
[2022-02-04] MEDS: FUROSEMIDE 20 MG TABLET 60 MG PO (08:51)
[2022-02-04] MEDS: CYANOCOBALAMIN 1,000 MCG TABLET 1000 MCG PO (08:51)
[2022-02-04] MEDS: DABIGATRAN ETEXILATE 150 MG CAPSULE PO (09:25)
--- NOTE | 2022-02-04 11:24 | PM.DS ---
DS: Admitting Diagnosis Discharge Date 02/04/2022 Admitting Diagnosis Fall DS: Discharge Diagnosis Discharge Diagnosis (1) Fall: Code(s): W19.XXXA - Unspecified fall, initial encounter Status: Acute Assessment and Plan: Patient had a fall where he face-planted on the concrete. Denied precipitating symptoms Reports he lost his balance Head CT with no acute findings Cervical spine CT with moderate cervical spondylosis however no acute injury Pelvic x-ray with no fracture Sustained laceration of upper lip which was closed with 3 nylon sutures. Suture removal 2-3 days following discharge. Fall precautions implemented (2) Weakness: Code(s): R53.1 - Weakness Status: Acute Assessment and Plan: Patient states that weakness is a chronic issue for him due to his swollen lower extremties but seems to be worsened recently TSH normal. B12 low end of normal. Will initiate supplementation. Cyanocobalamin 1000 mcg daily. Folate wnl. Participated in PT/OT during admission Home health services have been arranged (3) Closed fracture nasal bone: Code(s): S02.2XXA - Fracture of nasal bones, initial encounter for closed fracture Status: Acute Assessment and Plan: On CT patient has a nondisplaced fracture of the left nasal bone secondary to fall No further intervention is needed at this time. Supportive care provided (4) Lymphedema of both lower extremities: Code(s): I89.0 - Lymphedema, not elsewhere classified Status: Acute Assessment and Plan: Patient has unchanged chronic lymphedema. In the process of obtaining lymphedema pumps from his primary care provider. He will benefit from these Elevate extremities when lying or sitting (5) Chronic atrial fibrillation: Code(s): I48.20 - Chronic atrial fibrillation, unspecified Status: Acute Assessment and Plan: Rate is controlled Continue metoprolol and diltiazem Patient on dabigatran for stroke prophylaxis. Discussed at length with patient and family risks versus benefits of continued anticoagulation especially given the patient's recent fall. CHADS2-VASC score is 4. HAS-BLED score is 2. Patient reports this was his first fall in many years. At this time risk of stroke seems greater than risk of bleed. Patient feels strongly in favor of continuing dabigatran. Family in agreement. (6) Thrombocytopenia: Code(s): D69.6 - Thrombocytopenia, unspecified Status: Acute Assessment and Plan: Review of prior labs suggest this to be a chronic issue May be due to dabigatran Continue to monitor CBC DS: Summary Hospital Course Hospital Course: Date of admission: 02/01/2022 Date of discharge: 02/04/2022 Canddio Gonzalez is a 76-year-old male with a history of CHF, atrial fibrillation on chronic anticoagulation, BPH, COPD, hypertension, LEISA, and lymphedema of bilateral lower extremities who presented to the emergency department on 02/01/22 after suffering a fall in which he lost his balance and fell on to the concrete. He fell face first and scraped his forehead, lip, and right hand. He did not lose consciousness. He did have to make several attempts to call for help using his phone as he had difficulty seeing due to breaking his glasses in the fall. He did make a couple of attempts to get himself up but ultimately required assistance. On presentation to the emergency department, his vital signs were stable, laboratory workup was unremarkable, CT of the head with no acute findings, facial bone CT showed fracture of the left nasal bone, and pelvis x-ray showed no fracture. He did have a laceration of the upper lip which was closed with 3 nylon sutures. He received an updated tetanus shot. He was admitted to the hospitalist service for further evaluation and management. Please see above for further details. His pain was well controlled and his facial swe
[2022-02-04 12:00] VITALS: PULSE 62
== END 2022-02-04 13:50 | disposition home health service (06) | DRG 155 ==
LOC: ANHED 13:05 → ANH3MEDSUR 16:48
PROVIDERS: Physician Assistant; Admitting Provider Student in an Organized Health Care Education/Training Program; Emergency Provider Emergency Medicine; PCP Internal Medicine; Visit Provider Family Medicine
DX: S02.2XXA Fracture of nasal bones, initial encounter for closed fracture (principal); I48.20 Chronic atrial fibrillation, unspecified; I50.32 Chronic diastolic (congestive) heart failure; S01.511A Laceration without foreign body of lip, initial encounter; S61.401A Unspecified open wound of right hand, initial encounter; R53.1 Weakness; W01.0XXA Fall on same level from slipping, tripping and stumbling without subsequent striking against object, initial encounter; D69.6 Thrombocytopenia, unspecified; G47.33 Obstructive sleep apnea (adult) (pediatric); I25.10 Atherosclerotic heart disease of native coronary artery without angina pectoris; I11.0 Hypertensive heart disease with heart failure; I89.0 Lymphedema, not elsewhere classified; J44.9 Chronic obstructive pulmonary disease, unspecified; M47.812 Spondylosis without myelopathy or radiculopathy, cervical region; N40.0 Benign prostatic hyperplasia without lower urinary tract symptoms; R26.89 Other abnormalities of gait and mobility; R04.0 Epistaxis; Z79.01 Long term (current) use of anticoagulants; Z95.5 Presence of coronary angioplasty implant and graft; Z88.0 Allergy status to penicillin; Z23 Encounter for immunization
CPT/HCPCS: 12011; 36415; 70450; 70486; 71045; 72125; 72170; 80048; 80053; 81001; 82607; 82746; 83880; 84484; 85025; 85027; 85055; 85610; 85730; 90471; 90715; 93005; 96374; 97110; 97116; 97161; 97165; 99285; A9270; G0378; J1940

== ENCOUNTER 2022-02-28 00:16 | Day surgery (SDC) | payer MEDICARE, SELFPAY ==
[2022-02-17 15:23] VITALS: BMI 38.4
[2022-02-28 10:16] VITALS: BP 128/70; PULSE 94; RESP 20; TEMP 36.8; O2SAT 97
[2022-02-28] MEDS: LACTATED RINGERS 1,000 ML 150 ML IV CONT (10:26)
--- NOTE | 2022-02-28 11:02 | PM.IMHP ---
H&P: HPI History of Present Illness Date/Time: 02/28/22 11:02 Chief Complaint: History of colon polyps and family history of colon cancer. Narrative: This is a 76-year-old white male patient presents today for screening colonoscopy. Patient has prior history of colon polyps in 2017. Family history is significant his father had colon cancer. Patient presents today for surveillance colonoscopy. Reports his bowel habits are normally has had no bleeding. Past medical history is significant for congestive heart failure and atherosclerotic heart disease, atrial fibrillation followed by Cardiology Service. He also has had lymphedema of the lower extremities. Review of Systems Review of Systems: Review of systems noncontributory. [facility] Past Medical History Medical History (Updated 02/28/22 @ 11:04 by Huey Westfall MD) BPH (benign prostatic hyperplasia) CHF (congestive heart failure) Diastolic dysfunction Chronic atrial fibrillation Chronic obstructive pulmonary disease, unspecified Essential (primary) hypertension Lymphedema of both lower extremities Sleep apnea Family History Family History (Updated 02/01/22 @ 17:56 by Tracy Fontanez RN) Father Patient's father is Carcinoma of colon Mother Heart disease Grandparent Cerebrovascular accident Social History Social History Smoking status: Never smoker Alcohol intake: never Substance use: never Substance use type: does not use Living arrangements: with family Spiritual care concerns: No Meds Home Medications and Allergies Home Medications Medication Instructions Recorded Confirmed Type atorvastatin 40 mg tablet 40 mg PO DAILY 08/04/19 02/28/22 History dabigatran etexilate 150 mg 150 mg PO BID 08/04/19 02/28/22 History capsule (Pradaxa) metoprolol succinate 50 mg 100 mg PO DAILY 08/04/19 02/28/22 History tablet,extended release 24 hr potassium chloride 10 mEq 10 meq PO DAILY 08/04/19 02/28/22 History tablet,extended release (Klor-Con) furosemide 40 mg tablet 60 mg PO QAM #30 tabs 01/20/20 02/28/22 Rx diltiazem HCl 180 mg 180 mg PO DAILY 01/05/21 02/28/22 History capsule,extended release 24 hr terazosin 10 mg capsule 10 mg PO DAILY 02/01/22 02/28/22 History Allergies Allergy/AdvReac Type Severity Reaction Status Date / Time dutasteride Allergy Unknown Unknown Verified 02/28/22 10:15 finasteride Allergy Unknown Unknown Verified 02/28/22 10:15 Penicillins Allergy Unknown Unknown Verified 02/28/22 10:15 Vital Signs Vital Signs - 24 hr 02/28/22 10:16 Temperature 98.3 F Pulse Rate 94 Respiratory Rate 20 Blood Pressure 128/70 Pulse Oximetry 97 Oxygen Delivery Room Air Exam Narrative: Physical exam reveals patient be alert. Vital signs stable. HEENT exam is unremarkable. Patient is anicteric. Lungs are clear to auscultation and percussion. Heart is without murmur or extra sounds. Abdomen bowel sounds present soft nontender with no organomegaly. Digital external rectal exam is normal. Assessment and Plan Assessment and plan (1) Screening for colon cancer: Code(s): Z12.11 - Encounter for screening for malignant neoplasm of colon Status: Acute (2) Family history of colon cancer in father: Code(s): Z80.0 - Family history of malignant neoplasm of digestive organs Status: Acute Assessment and Plan: Patient's father had colon cancer. For this reason screening colonoscopy advised at this time. He may benefit from follow-up in the future if general medical health allows at 5 year intervals. (3) History of colon polyps: Code(s): Z86.010 - Personal history of colonic polyps Status: Acute Assessment and Plan: Patient had previous history of colon polyps. Most recent colonoscopy 2017. Plan is for surveillance colonoscopy now. Consider this a 5 year intervals of general health al
--- NOTE | 2022-02-28 11:11 | WPDANESEPPF ---
Anes - Initial Pre Proc Eval Procedure: Operation Date: 02/28/22 11:30 Proposed Procedures p Screening Colonoscopy - Huey Westfall MD Date/Time: 02/28/22 11:11 Surgeon: Huey Westfall MD Pre Op Diagnosis: hx of colon polyps, family hx colon ca Patient Data Age: 76 Gender: M Height: 1.85 m Weight: 126.3 kg Last Vital Signs Temp 98.3 F 02/28/22 10:16 Pulse 94 02/28/22 10:16 Resp 20 02/28/22 10:16 BP 128/70 02/28/22 10:16 Pulse Ox 97 02/28/22 10:16 O2 Del Method Room Air 02/28/22 10:16 Allergies Allergy/AdvReac Type Severity Reaction Status Date / Time dutasteride Allergy Unknown Unknown Verified 02/28/22 10:15 finasteride Allergy Unknown Unknown Verified 02/28/22 10:15 Penicillins Allergy Unknown Unknown Verified 02/28/22 10:15 Home Medications Medication Instructions Recorded Confirmed Type atorvastatin 40 mg tablet 40 mg PO DAILY 08/04/19 02/28/22 History dabigatran etexilate 150 mg 150 mg PO BID 08/04/19 02/28/22 History capsule (Pradaxa) metoprolol succinate 50 mg 100 mg PO DAILY 08/04/19 02/28/22 History tablet,extended release 24 hr potassium chloride 10 mEq 10 meq PO DAILY 08/04/19 02/28/22 History tablet,extended release (Klor-Con) furosemide 40 mg tablet 60 mg PO QAM #30 tabs 01/20/20 02/28/22 Rx diltiazem HCl 180 mg 180 mg PO DAILY 01/05/21 02/28/22 History capsule,extended release 24 hr terazosin 10 mg capsule 10 mg PO DAILY 02/01/22 02/28/22 History Patient hx anesthesia problems: none Family hx anesthesia problems: none Results Review: All pre-operative results and documents have been reviewed as part of the pre-operative evaluation. [facility] Past Medical History Medical History (Updated 02/28/22 @ 11:04 by Huey Westfall MD) BPH (benign prostatic hyperplasia) CHF (congestive heart failure) Diastolic dysfunction Chronic atrial fibrillation Chronic obstructive pulmonary disease, unspecified Essential (primary) hypertension Lymphedema of both lower extremities Sleep apnea Family History Family History (Updated 02/01/22 @ 17:56 by Tracy Fontanez RN) Father Patient's father is Carcinoma of colon Mother Heart disease Grandparent Cerebrovascular accident Social History Social History Smoking status: Never smoker Alcohol intake: never Substance use: never Substance use type: does not use Living arrangements: with family Spiritual care concerns: No Anes - Eval Final PreProcedure Day of Procedure 02/28/22 11:11 Patient weight: obese Heart: irregular rhythm Lungs: clear to auscultation Airway: Mallampati scale class III Neurological: alert and oriented Last oral intake: >/= 8 hours ASA classification: III Emergent: no Anesthetic plan: proceed Anesthesia type and monitoring: general GIVS and standard monitoring Results Review: All pre-operative results and documents have been reviewed as part of the pre-operative evaluation. Informed Consent: The patient's anesthetic plan and its attendant risks and benefits were discussed with the patient/family/POA. Questions were solicited and answers provided to the satisfaction of the patient/family/POA.
[2022-02-28 11:28] VITALS: BP 107/51; PULSE 81; RESP 24; O2SAT 100
[2022-02-28 11:38] VITALS: BP 120/78; PULSE 80; RESP 25; O2SAT 95
[2022-02-28 11:48] VITALS: BP 235/86; PULSE 83; RESP 23; O2SAT 98
== END 2022-02-28 12:09 | disposition home or self-care (01) ==
PROVIDERS: PCP Internal Medicine; Visit Provider Internal Medicine Gastroenterology
PROC: 0DJD8ZZ Inspection of Lower Intestinal Tract, Via Natural or Artificial Opening Endoscopic (ICD-10-PCS; CPT 45378; principal; 2022-02-28 11:30)
DX: Z12.11 Encounter for screening for malignant neoplasm of colon (principal); Z80.0 Family history of malignant neoplasm of digestive organs; K64.8 Other hemorrhoids; N40.0 Benign prostatic hyperplasia without lower urinary tract symptoms; R59.1 Generalized enlarged lymph nodes; G47.33 Obstructive sleep apnea (adult) (pediatric); I11.0 Hypertensive heart disease with heart failure; I50.9 Heart failure, unspecified; I48.20 Chronic atrial fibrillation, unspecified
CPT/HCPCS: G0105; J2704; J7120

== ENCOUNTER 2022-06-15 11:49 | Emergency (ER) | payer MEDICARE, SELFPAY ==
[2022-06-15 12:06] VITALS: BP 118/60; PULSE 62; RESP 16; TEMP 36.4; O2SAT 99
--- NOTE | 2022-06-15 13:00 | ED.URI ---
HPI - URI/Sore Throat General Chief Complaint: Upper Respiratory Infection Stated Complaint: productive cough Time Seen by Provider: 06/15/22 12:52 Source: patient Mode of arrival: ambulatory Limitations: no limitations History of Present Illness HPI Narrative: patient presents today complaining of a 1+ week cough that has been productive of sputum with nasal congestion. History of COPD, but states that shortness of breath is no worse than normal. He has tried no [id number] treatment prior to arrival. Denies any additional symptoms. Related Data Home Medications Medication Instructions Recorded Confirmed atorvastatin 40 mg tablet 40 mg PO DAILY 08/04/19 06/15/22 dabigatran etexilate 150 mg 150 mg PO BID 08/04/19 06/15/22 capsule (Pradaxa) metoprolol succinate 50 mg 100 mg PO DAILY 08/04/19 06/15/22 tablet,extended release 24 hr potassium chloride 10 mEq 10 meq PO DAILY 08/04/19 06/15/22 tablet,extended release (Klor-Con) diltiazem HCl 180 mg 180 mg PO DAILY 01/05/21 06/15/22 capsule,extended release 24 hr Allergies Allergy/AdvReac Type Severity Reaction Status Date / Time dutasteride Allergy Unknown Unknown Verified 06/15/22 12:04 finasteride Allergy Unknown Unknown Verified 06/15/22 12:04 Penicillins Allergy Unknown Unknown Verified 06/15/22 12:04 Review of Systems Review of Systems: CONSTITUTIONAL: Denies body aches, fever, chills, or sweats. EYES: Denies visual changes, redness, or discharge. ENT: Denies rhinorrhea, sore throat, or otalgia.+ congestion CARDIOVASCULAR: Denies chest pain, palpitations, or edema. RESPIRATORY: Denies dyspnea.+ Cough GASTROINTESTINAL: Denies abdominal pain, nausea, vomiting, or diarrhea. GENITOURINARY: Denies dysuria or hematuria. SKIN: Denies rash, itching, or wounds. MUSCULOSKELETAL: Denies back pain, joint pain, or myalgia. NEUROLOGIC: Denies headache, numbness, tingling, or weakness. PSYCH: Denies depression or anxiety. [facility] Past Medical History Medical History BPH (benign prostatic hyperplasia) CHF (congestive heart failure) Diastolic dysfunction Chronic atrial fibrillation Chronic obstructive pulmonary disease, unspecified Essential (primary) hypertension Lymphedema of both lower extremities Sleep apnea Family History Family History Father Patient's father is Carcinoma of colon Mother Heart disease Grandparent Cerebrovascular accident Social History Social History Smoking status: Never smoker Alcohol intake: never Substance use: never Substance use type: does not use Spiritual care concerns: No Comments At time of signature, I have reviewed and agree with nursing past medical, surgical, social and family history unless otherwise noted. Please see nursing chart for further information. There is no relevant family history pertinent to the presenting complaint Exam Narrative: GENERAL: Well-appearing, well-nourished, and in no acute distress. HEAD: Normocephalic, atraumatic. EYES: EOMI. No redness or drainage. Conjunctivae normal. ENT: Mucous membranes pink and moist. Nares clear. No rhinorrhea. TMs normal bilaterally. Throat normal. Uvula midline. NECK: Normal AROM. Supple. No lymphadenopathy. CHEST: No respiratory distress. slight expiratory wheeze in the left upper lobe, otherwise clear. HEART: Regular rate and rhythm. No murmur appreciated. Normal peripheral pulses. EXTREMITIES: Normal range of motion. No edema. SKIN: Warm, dry, no rash. Capillary refill normal. Normal skin turgor. NEURO: No focal deficits. Alert and oriented x3. Gait steady. PSYCH: Normal affect. No signs of depression or anxiety. Course Course Level of Care: Express Care Visit Vital Signs Vital signs: Vital Signs Temperature 97.6 F 06/15
== END 2022-06-15 13:22 | disposition home or self-care (01) ==
PROVIDERS: Emergency Provider Nurse Practitioner; PCP Internal Medicine
DX: J06.9 Acute upper respiratory infection, unspecified (principal); J44.9 Chronic obstructive pulmonary disease, unspecified; I48.20 Chronic atrial fibrillation, unspecified; I11.0 Hypertensive heart disease with heart failure; I50.30 Unspecified diastolic (congestive) heart failure; N40.0 Benign prostatic hyperplasia without lower urinary tract symptoms; G47.30 Sleep apnea, unspecified
CPT/HCPCS: 99213; G0463

== ENCOUNTER 2022-07-27 12:43 | Outpatient (CLI) | payer MEDICARE, SELFPAY ==
[2022-07-27 13:00] LABS: Basophils Percent Auto 0.6 % (0.2-1.2); Eosinophils Absolute Auto 0.2 K/mm3 (0-0.3); Eosinophils Percent Auto 2.3 % (0-4.4); Hematocrit 40.5 % (42.0-52.0); Hemoglobin 12.8 g/dL (14.0-18.0); Immature Granulocyte Absolute 0.02 K/mm3 (0.00-0.031); Immature Granulocyte Percent A 0.3 % (0-0.5); Lymphocytes Percent Auto 18.4 % (18.3-44.2); Mean Corpuscular HGB Conc 31.6 g/dl (32-36); Mean Corpuscular Hemoglobin 31.1 pg (26-34); Mean Corpuscular Volume 98.3 fl (80-100); Mean Platelet Volume 9.4 fl (7.4-10.4); Monocytes Absolute Auto 0.8 K/mm3 (0.1-0.6); Monocytes Percent Auto 10.7 % (2.6-8.5); Neutrophils Absolute Auto 4.8 K/mm3 (1.3-6.7); Neutrophils Percent Auto 67.7 % (45.5-73.1); Platelet Count Result 134 k/mm3 (150-375); Red Blood Count 4.12 M/mm3 (4.6-6.20); Red Cell Distribution Width 13.8 % (11.5-14.5); White Blood Count 7.1 K/mm3 (4.5-10.0)
[2022-07-27 13:10] LABS: Alanine Aminotransferase 19 U/L (6-50); Albumin Level 3.9 g/dL (3.5-5.1); Alkaline Phosphatase 83 U/L (38-126); Anion Gap 4 mmol/L (8-16); Aspartate Amino Transferase 23 U/L (17-59); Bilirubin,Total 0.7 mg/dL (0.2-1.3); Blood Urea Nitrogen 19 mg/dL (9-20); Calcium 8.9 mg/dL (8.4-10.2); Carbon Dioxide 36 mmol/L (22-30); Chloride 101 mmol/L (98-107); Cholesterol 94 mg/dL (0-200); Estimated Glomerular Filt Rate > 60; Glucose 96 mg/dL (65-110); HDL Direct 35 mg/dL; Sodium 141 mmol/L (137-145); Triglycerides 65 mg/dL (<150)
[2022-07-27 13:21] LABS: LDL Cholesterol Direct 45 mg/dL
== END 2022-07-27 12:44 | disposition home or self-care (01) ==
PROVIDERS: PCP Internal Medicine; Visit Provider Nurse Practitioner
DX: E78.5 Hyperlipidemia, unspecified (principal); D64.9 Anemia, unspecified
CPT/HCPCS: 36415; 80053; 80061; 85025

== ENCOUNTER 2022-09-27 11:18 | Outpatient (CLI) | payer MEDICARE, SELFPAY ==
--- NOTE | ~2022-09-27 | XR_ITS ---
XR chest 2V 09/27/2022 11:49 Indication: Shortness of breath. Edema. Procedure: 2 view chest Comparison: Comparison to multiple prior studies sequentially, with oldest reviewed study dated 12/2017. Findings: Cardiomegaly. Bibasilar airspace disease. Small pleural effusions. No pneumothorax. No acut e osseous abnormality. Impression: 1: Bibasilar airspace disease may represent atelectasis or pneumonia. 2: Cardiomegaly. 3: Small pleural effusions. Reviewed, dictated and finalized at location A. OTIONS SPECIALIST Impression: 1: Bibasilar airspace disease may represent atelectasis or pneumonia. 2: Cardiomegaly. 3: Small pleural effusions.
[2022-09-27 12:34] LABS: Anion Gap 3 mmol/L (8-16); Blood Urea Nitrogen 29 mg/dL (9-20); Calcium 9.1 mg/dL (8.4-10.2); Carbon Dioxide 38 mmol/L (22-30); Chloride 99 mmol/L (98-107); Estimated Glomerular Filt Rate 53; Glucose 91 mg/dL (65-110); Potassium 4.3 mmol/L (3.4-5.0); Sodium 140 mmol/L (137-145)
[2022-09-27 12:39] LABS: NT Pro B Type Natriuretic Pept 1410 pg/mL (19.9-100)
== END 2022-09-27 11:19 | disposition home or self-care (01) ==
PROVIDERS: PCP Internal Medicine; Visit Provider Internal Medicine
DX: I50.9 Heart failure, unspecified (principal); I11.0 Hypertensive heart disease with heart failure; J44.9 Chronic obstructive pulmonary disease, unspecified; R06.02 Shortness of breath; J90 Pleural effusion, not elsewhere classified; R91.8 Other nonspecific abnormal finding of lung field
CPT/HCPCS: 36415; 71046; 80048; 83880

== ENCOUNTER 2022-12-29 07:21 | Outpatient (RCR) | payer MEDICARE, SELFPAY ==
[2022-12-20 14:05] VITALS: BMI 38.9
== END 2023-03-05 08:46 | disposition home or self-care (01) ==
LOC: ANHWOC 07:21
PROVIDERS: PCP Internal Medicine; Visit Provider Internal Medicine Cardiovascular Disease
DX: I89.0 Lymphedema, not elsewhere classified (principal); I87.2 Venous insufficiency (chronic) (peripheral)
CPT/HCPCS: 29581; 99213; G0463

== ENCOUNTER 2023-02-14 13:13 | Outpatient (CLI) | payer MEDICARE, SELFPAY ==
--- NOTE | ~2023-02-14 | US_ITS ---
EXAMINATION: US scrotum doppler DATE: 02/14/2023 14:36 INDICATION: Other specified disorders of the male genital. Scrotal swelling. TECHNIQUE: Grayscale and Doppler ultrasound images of the testes were obtained. COMPARISON: None. FINDINGS: The right testis measures 4.0 x 2.7 x 2.7 cm. The left testis measures 4.3 x 2.3 x 2.6 cm. There is normal vascular flow to both testes. The right epididymis is normal with normal vascular luis w. The left epididymis is normal with normal vascular flow. There are large bilateral hydroceles. The re are bilateral varicoceles. IMPRESSION: 1. Large bilateral hydroceles. Reviewed, dictated and finalized at location A.
== END 2023-02-14 13:14 | disposition home or self-care (01) ==
PROVIDERS: PCP Nurse Practitioner; Visit Provider Nurse Practitioner
DX: N50.89 Other specified disorders of the male genital organs (principal); N43.3 Hydrocele, unspecified
CPT/HCPCS: 76870; 93976

== ENCOUNTER 2023-04-25 06:36 | Outpatient (CLI) | payer MEDICARE, SELFPAY ==
[2023-04-25 09:05] LABS: Alanine Aminotransferase 23 U/L (6-50); Albumin Level 3.7 g/dL (3.5-5.1); Alkaline Phosphatase 81 U/L (38-126); Anion Gap 3 mmol/L (8-16); Aspartate Amino Transferase 29 U/L (17-59); Bilirubin,Total 0.9 mg/dL (0.2-1.3); Blood Urea Nitrogen 24 mg/dL (9-20); Calcium 8.9 mg/dL (8.4-10.2); Carbon Dioxide 34 mmol/L (22-30); Chloride 104 mmol/L (98-107); Cholesterol 99 mg/dL (0-200); Estimated Glomerular Filt Rate 58; Glucose 81 mg/dL (65-110); HDL Direct 31 mg/dL; Potassium 3.7 mmol/L (3.4-5.0); Sodium 141 mmol/L (137-145); Triglycerides 37 mg/dL (<150)
[2023-04-25 09:15] LABS: LDL Cholesterol Direct 61 mg/dL
== END 2023-04-25 06:37 | disposition home or self-care (01) ==
PROVIDERS: PCP Nurse Practitioner; Referring Provider Internal Medicine Cardiovascular Disease; Visit Provider Nurse Practitioner
DX: E78.5 Hyperlipidemia, unspecified (principal)
CPT/HCPCS: 36415; 80053; 80061

== ENCOUNTER 2023-07-09 11:37 | Emergency (ER) | payer MEDICARE, SELFPAY ==
--- NOTE | ~2023-07-09 | XR_ITS ---
XR chest 2V 07/09/2023 13:05 Indication: Cough for a few months Procedure: 2 view chest Comparison: Comparison to multiple prior studies sequentially, with oldest reviewed study dated 07/14. Findings: Moderate cardiomegaly. No focal air space disease, pulmonary edema, pleural effusion or donis pected pneumothorax. No acute osseous abnormality. Impression: 1: No acute cardiopulmonary disease. Reviewed, dictated and finalized at location B. AULIC PRESS IN OPERATOR Impression: 1: No acute cardiopulmonary disease.
[2023-07-09 12:11] VITALS: BP 120/54; PULSE 73; RESP 16; TEMP 36.9; O2SAT 100
--- NOTE | 2023-07-09 12:53 | ED.URI ---
HPI - URI/Sore Throat General Chief Complaint: Upper Respiratory Infection Stated Complaint: Cold symptoms Time Seen by Provider: 07/09/23 12:53 Source: patient, family, RN notes reviewed and old records reviewed Mode of arrival: ambulatory Limitations: no limitations History of Present Illness HPI Narrative: 78 year old male accompanied by with complaints of cough for the past 2 months with increased symptoms for the past few days. Patient reports that he has no wheezing or shortness of breath just nagging cough with some yellowish expectoration and he can blow his nose all day long. Patient reports that he usually gets this once a year usually around this time. Patient able to talk in full sentences with no dyspnea noted. Patient does have some swelling peripherally states he always has some no increase reported. Patient denies any fevers, chills or sweats or any body aches. MD elicited complaint: cough and other Onset (ago): month(s) (2 months with increased symptoms for 2=3 days.) Description of mucous: yellow Related Data Home Medications Medication Instructions Recorded Confirmed atorvastatin 40 mg tablet 40 mg PO DAILY 08/04/19 07/09/23 dabigatran etexilate 150 mg 150 mg PO BID 08/04/19 07/09/23 capsule (Pradaxa) metoprolol succinate 50 mg 150 mg PO DAILY 02/06/23 07/09/23 tablet,extended release 24 hr (Toprol XL) Allergies Allergy/AdvReac Type Severity Reaction Status Date / Time dutasteride Allergy Unknown Unknown Verified 07/09/23 12:32 finasteride Allergy Unknown Unknown Verified 07/09/23 12:32 Penicillins Allergy Unknown Unknown Verified 07/09/23 12:32 Review of Systems Review of Systems: CONSTITUTIONAL: Denies malaise, chills, sweats, or fever. EYES: Denies visual changes, redness, or discharge. ENT: Reports rhinorrhea, congestion,no sinus pain,no otalgia and no sore throat. CARDIOVASCULAR: Denies chest pain, palpitations, trace pedal edema. RESPIRATORY: Reports cough.? Denies dyspnea. GASTROINTESTINAL: Denies abdominal pain, nausea, vomiting, diarrhea SKIN: Denies rash or itching. MUSCULOSKELETAL: Denies myalgia. NEUROLOGIC: Denies headache. All systems reviewed & are unremarkable except as noted in HPI and below PMFSH Past Medical History Medical History BPH (benign prostatic hyperplasia) CHF (congestive heart failure) Diastolic dysfunction Chronic atrial fibrillation Chronic obstructive pulmonary disease, unspecified Essential (primary) hypertension Lymphedema of both lower extremities Sleep apnea Family History Family History Father Patient's father is Carcinoma of colon Mother Heart disease Grandparent Cerebrovascular accident Social History Social History Smoking status: Never smoker Alcohol intake: former Substance use: never Substance use type: does not use Lack of Transportation: No Lack of Food: Never True Current Housing: I Have Housing Concerned About Future Housing: No Difficulty Paying Gas/Electric Bills: No Difficulty Paying for Meds: No Currently Unemployed: No Education: High School Diploma/GED Difficulty w/ Childcare or Family Care: No Living arrangements: with family Spiritual care concerns: No Comments At time of signature, agree with nursing past medical, surgical, social and family history. There is no relevant family history pertinent to the presenting complaint Exam Narrative: GENERAL: Well-appearing, well-nourished,obese, and in no acute distress. HEAD: Normocephalic EYES: PERRLA, conjunctivae clear ENT: Nares clear, turbinates edematous and erythematous, clear discharge. Mucous membranes moist. TM pearly trujillo with dull light reflex bilaterally; no tragal tenderness. Oropharynx erythematous without lesions. Tonsils no
== END 2023-07-09 13:31 | disposition home or self-care (01) ==
PROVIDERS: Emergency Provider Registered Nurse; PCP Family Medicine
DX: J40 Bronchitis, not specified as acute or chronic (principal); N40.0 Benign prostatic hyperplasia without lower urinary tract symptoms; I11.0 Hypertensive heart disease with heart failure; I50.9 Heart failure, unspecified; J44.9 Chronic obstructive pulmonary disease, unspecified; I48.20 Chronic atrial fibrillation, unspecified; I10 Essential (primary) hypertension
CPT/HCPCS: 71046; 99213; G0463

== ENCOUNTER 2023-07-10 16:41 | Outpatient (CLI) | payer MEDICARE, SELFPAY ==
[2023-07-10 17:20] LABS: Bacteria Urine None Seen /hpf; Need Manual Microscopic Reviewed; Non Pathogenic Casts 0-2; Squamous Epithelial Cell Urine Few /hpf (Few); WBC Urine 21-50 /hpf
[2023-07-10 17:21] LABS: Appearance Urine Turbid (Clear); Color Urine Dark Red (Yellow); RBC Urine >100 /hpf (0-2)
[2023-07-10 17:24] LABS: Add Urine Microscopic? YES
== END 2023-07-10 16:42 | disposition home or self-care (01) ==
PROVIDERS: PCP Family Medicine; Visit Provider Nurse Practitioner
DX: R31.9 Hematuria, unspecified (principal)
CPT/HCPCS: 81001; 87086

== ENCOUNTER 2023-07-20 09:04 | Outpatient (CLI) | payer MEDICARE, SELFPAY ==
--- NOTE | ~2023-07-20 | CT_ITS ---
EXAMINATION: CT abdomen pelvis wo/w con DATE: 07/20/2023 10:10 INDICATION: TECHNIQUE: Computed tomography (CT) of the abdomen and pelvis was performed without intravenous contr ast. The dose-length product was 2965.66 mGy-cm. Automated exposure control and iterative reconstruct ion technique were employed. COMPARISON: None. FINDINGS: Right lower lobe atelectasis. Moderate pericardial effusion. Mild right pleural thickening. Cardiomegaly. Gallstones. The spleen, pancreas, adrenal glands and right kidney are unremarkable. Th ere is a 3 mm nonobstructing left renal stone. No ureteral stones or hydronephrosis. Small fat-contai cathy inguinal hernias. Moderate lower thoracic and lumbar spondylosis. IMPRESSION: 1. Moderate pericardial effusion. 2: Cholelithiasis. 3: Nonobstructing left nephrolithiasis. Reviewed, dictated and finalized at location B. [facility]PLITTER
[2023-07-20 09:51] LABS: Estimated Glomerular Filt Rate 53
== END 2023-07-20 09:05 | disposition home or self-care (01) ==
PROVIDERS: PCP Family Medicine; Visit Provider Nurse Practitioner
DX: R31.9 Hematuria, unspecified (principal); I31.39 Other pericardial effusion (noninflammatory); K80.20 Calculus of gallbladder without cholecystitis without obstruction; N20.0 Calculus of kidney
CPT/HCPCS: 74178; 88305; Q9967

== ENCOUNTER → 2023-07-20 10:50 | Outpatient (REF) | payer MEDICARE, SELFPAY | LOC: ANHLAB 10:50 | PROVIDERS: PCP Family Medicine; Visit Provider Plastic Surgery | DX: L72.3 Sebaceous cyst (principal); C44.1291 Squamous cell carcinoma of skin of left upper eyelid, including canthus; L82.1 Other seborrheic keratosis | CPT/HCPCS: 88305 ==

== ENCOUNTER 2024-02-07 12:11 | Outpatient (CLI) | payer MEDICARE, SELFPAY ==
[2024-02-07 12:50] LABS: Alanine Aminotransferase 18 U/L (6-50); Albumin Level 3.8 g/dL (3.5-5.1); Alkaline Phosphatase 85 U/L (38-126); Anion Gap 2 mmol/L (4-12); Aspartate Amino Transferase 25 U/L (17-59); Bilirubin,Total 1.4 mg/dL (0.2-1.3); Blood Urea Nitrogen 23 mg/dL (9-20); Calcium 9.1 mg/dL (8.4-10.2); Carbon Dioxide 32 mmol/L (22-30); Chloride 108 mmol/L (98-107); Estimated Glomerular Filt Rate 58; Glucose 86 mg/dL (65-110); Potassium 4.5 mmol/L (3.4-5.0); Sodium 142 mmol/L (137-145)
[2024-02-07 12:52] LABS: Hematocrit 40.7 % (42.0-52.0); Hemoglobin 13.1 g/dL (14.0-18.0); Immature Platelet Fraction Pct 2.1 % (0.9-11.2); Mean Corpuscular HGB Conc 32.2 g/dl (32-36); Mean Corpuscular Volume 96.4 fl (80-100); Mean Platelet Volume 10.3 fl (7.4-10.4); Platelet Count Result 135 k/mm3 (150-375); Red Blood Count 4.22 M/mm3 (4.6-6.20); Red Cell Distribution Width 14.3 % (11.5-14.5); White Blood Count 6.5 K/mm3 (4.5-10.0)
== END 2024-02-07 12:12 | disposition home or self-care (01) ==
PROVIDERS: PCP Family Medicine; Visit Provider Family Medicine
DX: D64.9 Anemia, unspecified (principal); I50.9 Heart failure, unspecified; N40.0 Benign prostatic hyperplasia without lower urinary tract symptoms; R53.83 Other fatigue; G47.33 Obstructive sleep apnea (adult) (pediatric); S02.2XXA Fracture of nasal bones, initial encounter for closed fracture; X58.XXXA Exposure to other specified factors, initial encounter
CPT/HCPCS: 36415; 80053; 85027; 85055

== ENCOUNTER 2024-03-19 07:13 | Outpatient (RCR) | payer MEDICARE, SELFPAY ==
[2024-02-26 10:00] VITALS: BMI 36.3
== END 2024-05-26 08:28 | disposition home or self-care (01) ==
LOC: ANHWOC 07:13
PROVIDERS: PCP Family Medicine; Visit Provider Family Medicine
DX: S81.802A Unspecified open wound, left lower leg, initial encounter (principal)
CPT/HCPCS: 29581; 99214; G0463

== ENCOUNTER 2024-10-29 16:24 | Outpatient (CLI) | payer MEDICARE, SELFPAY ==
[2024-10-29 17:15] LABS: Hematocrit 41.5 % (42.0-52.0); Hemoglobin 13.5 g/dL (14.0-18.0); Mean Corpuscular HGB Conc 32.5 g/dl (32-36); Mean Corpuscular Hemoglobin 30.1 pg (26-34); Mean Corpuscular Volume 92.4 fl (80-100); Mean Platelet Volume 9.5 fl (7.4-10.4); Platelet Count Result 158 k/mm3 (150-375); Red Blood Count 4.49 M/mm3 (4.6-6.20); Red Cell Distribution Width 15.7 % (11.5-14.5); White Blood Count 6.8 K/mm3 (4.5-10.0)
--- OUTSIDE RECORDS SUMMARY | 2024-10-29 17:17 | XMS_ITS | Referral Summary ---
Author Organization [facility] [address] Address [address] [place] [address] Care Team Providers Care Type Disk Quality Control Supervisor Name Role Phone Alex Woodward NP Primary Care Provider Allergies Active Allergy Reactions Criticality Noted Date Comments Penicillins Other (See comments) Low Fainted Medications nitroglycerin (NITROSTAT) 0.[address] 1 tablet (0.4MG) by Sublingual route as needed for shortness of breath or chest tightness 25 0 01/04/20 11 Active albuterol HFA (PROVENTIL HFA,VENTOLIN HFA,PROAIR HFA) 90 mcg/actuation inhaler 10/15/19 23 Active metoprolol XL (TOPROL-XL) 50 mg extended release tabletIndications:Pe rsistent atrial fibrillation (HCC),Essential hypertension,Coronar y arteriosclerosis in [place] artery Take 3 tablets (150 mg total) by mouth daily 270 tablet 3 10/02/19 24 Active furosemide (LASIX) 40 mg tabletIndications:Ly mphedema of both lower extremities Take 1.5 tablets (60 mg total) by mouth daily 135 tablet 3 10/02/19 24 Active potassium chloride ER 10 mEq CR tablet Take 1 tablet/capsul e (10 mEq total) by mouth daily 04/08/20 24 Active atorvastatin (LIPITOR) 40 mg tabletIndications:Co ronary arteriosclerosis in [place] artery TAKE 1 TABLET DAILY 90 tablet 3 07/14/20 24 Active dabigatran (Pradaxa) 150 mg capsuleIndications:P ersistent atrial fibrillation (HCC) Take 1 capsule (150 mg total) by mouth 2 (two) times a day 180 capsule 1 10/22/19 25 Active dabigatran (Pradaxa) 150 mg capsuleIndications:P ersistent atrial fibrillation (HCC) Take 1 capsule (150 mg total) by mouth 2 (two) times a day 180 capsule 3 08/31/19 24 025 Discontin ued(Reord er) Active Problems Problem Noted Date Diagnosed Date Pericardial effusion 10/20/2023 LEISA (obstructive sleep apnea) 10/02/2023 Morbid (severe) obesity due to excess calories 0 10/02/2023 Class 3 obesity 11/09/2021 Hypokalemia 05/23/2021 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 05/10/2020 Lymphedema of both lower extremities 05/10/2020 Benign prostatic hyperplasia with weak urinary s tream 09/09/2019 Overview (09/09/2019): Added automatically from request for surgery [id number] Hydrocele, left 09/09/2019 Overview (09/09/2019): Added automatically from request for surgery [id number] Stricture of urethral meatus in male 09/09/2019 Overview (09/09/2019): Added automatically from request for surgery [id number] H/O right coronary artery stent placement 2018 Chronic fatigue 01/13/2019 Chronic anticoagulation 04/25/2017 Obesity with body mass index 30 or greater 11/06 Overview (01/05/2017): Obesity (BMI 30-39.9) Persistent atrial fibrillation 07/26/2015 Overview (11/18/2016): Persistent atrial fibrillation Chronic diastolic heart failure 07/26/2015 Overview (11/18/2016): Chronic diastolic CHF (congestive heart failure) Shortness of breath 12/27/2013 Overview (11/15/2016): SHORTNESS OF BREATH Multiple-type hyperlipidemia 12/27/2013 Overview (11/16/2016): MIXED HYPERLIPIDEMIA Coronary arteriosclerosis in [place] artery 05/06 Overview (11/17/2016): CRNRY ATHRSCL NATVE VSSL Essential hypertension 05/06/2012 Overview (11/17/2016): BENIGN HYPERTENSION Resolved Problems Problem Noted Date Diagnosed Date Resolved Date Penis disease 04/25/2017 05/23/2021 Assessment & Plan (04/25/2017 10:55 AM CDT): Occ bleeding fr penis, sees Dr. Patten Acute diastolic heart failure 06/29/2015 04/25/2017 Overview (11/18/2016): Acute diastolic CHF (congestive heart failure) Atrial fibrillation 06/29/2015 04/25/20 Overview (11/18/2016): Atrial fibrillation, new onset Abnormal result of cardiovas cular function study 12/27/2013 04/25/2017 Overview (11/15/2016): Abnormal cardiovascular function study Precordial pain 12/27/2013 04/25/2017 Overview (11/15/2016): PRECORDIAL PAIN Morbid obesity 05/06/2012 04/25/2017 Overview (11/17/2016): MORBID OBESITY Post percutaneous translumin al coronary angioplasty 05/06/2012 01/13/2019 Overview (11/18/2016): STATUS-POST PTCA Social History Tobacco Use Types Packs/Day Years Used Date Smoking Tobacco: Never Smokeless Tobacco: Never Tobacco Cessation:Counseling Given: Not Answered Alcohol Use Standard Drinks/Week Comments No 0 (1 standard drink = 0.6 oz pur e alcohol) Sex and Gender Information Value Date Recorded Sex Assigned at Not on file Legal Sex Male 12:53 AM JEWEL STRINGER Gender Identity Not on file Sexual Orientation Not on file Last Filed Vital Signs Vital Sign Reading Time Taken Comments Blood Pressure 145/80 07/17/2024 1:42 PM JEWEL STRINGER Pulse 72 07/11/2024 9:03 AM JEWEL STRINGER Temperature 35.6 C (96 F) 10/02/2019 1:18 PM JEWEL STRINGER Respiratory Rate 22 10/02/2019 3:00 PM JEWEL STRINGER Oxygen Saturation 95% 07/11/2024 9:03 AM JEWEL STRINGER Inhaled Oxygen Concentration - - Weight 124.3 kg (274 lb) 07/11/2024 9:03 AM JEWEL STRINGER Height 185.4 cm (6' 1 ) 07/11/2024 9:03 AM JEWEL STRINGER Body Mass Index 36.15 07/11/2024 9:03 AM JEWEL STRINGER Plan of Treatment Not on file Insurance MEDICARE [facility] AETNA MEDICARE Care Teams Type Disk Quality Control Supervisor Relationship Specialty Start Date End Date Alex Woodward NP [address] [place] [address] PCP - General Nurse Practitioner 03/20/23
--- OUTSIDE RECORDS SUMMARY | 2024-10-29 17:17 | XMS_ITS | Clinical Summary ---
Author Organization [facility] [address] Address [address] [place] [address] Care Team Providers Care Multimedia Developer Name Role Phone Alex Woodward NP Primary [...] atrial fibrillation (HCC),Essential hypertension,Coronar y arteriosclerosis in [place] artery Take 3 tablets (150 mg total) [...] (LIPITOR) 40 mg tabletIndications:Co ronary arteriosclerosis in [place] artery TAKE 1 TABLET DAILY 90 tablet [...] (09/09/2019): Added automatically from request for surgery [id number] Hydrocele, left 09/09/2019 Overview (09/09/2019): Added automatically from request for surgery [id number] Stricture of urethral meatus in male 09/09/2019 Overview (09/09/2019): Added automatically from request for surgery [id number] H/O right coronary artery stent placement 2018 [...] Overview (11/16/2016): MIXED HYPERLIPIDEMIA Coronary arteriosclerosis in [place] artery 05/06 Overview (11/17/2016): CRNRY ATHRSCL [place] VSSL Essential hypertension 05/06/2012 Overview (11/17/2016): BENIGN [...] angioplasty 05/06/2012 01/13/2019 Overview (11/18/2016): STATUS-POST PTCA Surgical History Surgery Date Site/Laterality Comments HEART SURGERY Cardiac Catherization - Cardiac Stent x1 SKIN LESION EXCISION x 2 MOHS SURGERY CIRCUMCISION 08/13/2015 - 08/12/2016 Medical History Medical History Date Comments Hx Other Medical Obesity, Morbid Frequency of urination Hematuria Asthma Cough Urinary incontinence Erectile dysfunction Visual impairment COPD (chronic obstructive pu lmonary disease) ([facility]) A-fib ([facility]) Sleep apnea no machine I di dn't want fool with it Hypertension Hyperlipidemia Coronary artery disease Cardiac Stent x 1 Cancer ([facility]) Skin - [place]; R ight Posterior Shoulder Family History Medical History Relation Name Comments Cancer Father Colon cancer Father Family history of colon cancer - (Added by TW Conv) Heart disease Mother Coronary artery disease Other 2 [place] nary Artery Disease; Relation Name Status Comments Father Mother Other 1 Alive Other 2 Social History Tobacco Use Types Packs/Day Years Used Date Smoking Tobacco: Never Smokeless Tobacco: Never Tobacco Cessation:Counseling Given: Not Answered Alcohol Use Standard Drinks/Week Comments No 0 (1 standard drink = 0.6 oz pur e alcohol) Sex and Gender Information Value Date Recorded Sex Assigned at Not on file Legal Sex Male 12:53 AM SPECIMEN BOSS Gender Identity Not on file Sexual Orientation Not on file Obstetrics History Last Filed Vital Signs Vital Sign Reading Time Taken Comments Blood Pressure 145/80 07/17/2024 1:42 PM SPECIMEN BOSS Pulse 72 07/11/2024 9:03 AM SPECIMEN BOSS Temperature 35.6 C (96 F) 10/02/2019 1:18 PM SPECIMEN BOSS Respiratory Rate 22 10/02/2019 3:00 PM SPECIMEN BOSS Oxygen Saturation 95% 07/11/2024 9:03 AM SPECIMEN BOSS Inhaled Oxygen Concentration - - Weight 124.3 kg (274 lb) 07/11/2024 9:03 AM SPECIMEN BOSS Height 185.4 cm (6' 1 ) 07/11/2024 9:03 AM SPECIMEN BOSS Body Mass Index 36.15 07/11/2024 9:03 AM SPECIMEN BOSS Plan of Treatment Health Maintenance Due Date Last Done Comments Depression Screening 1945 Fall Risk Assessment 1945 DTaP/Tdap/Td Vaccine (1 - Tdap) 1954 Hepatitis B Screening 1961 Zoster Vaccine (1 of 2) 1993 Well Visit 65+ 2008 Pneumococcal vaccine 65+ (2 of 2 - PPSV23) 09/17/2016 07/23/2016 Influenza Vaccine (#1) 2024 8, 06/05/2017, 07/23/2016, Additional history exists Insurance MEDICARE [facility] AETNA MEDICARE Care Teams Multimedia Developer Relationship Specialty Start Date End Date Alex Woodward NP [address] [place] [address] PCP - General Nurse Practitioner 03/20/23
[2024-10-29 17:44] LABS: Alanine Aminotransferase 16 U/L (6-50); Albumin Level 3.5 g/dL (3.5-5.1); Alkaline Phosphatase 91 U/L (38-126); Anion Gap 4 mmol/L (4-12); Aspartate Amino Transferase 24 U/L (17-59); Bilirubin,Total 1.2 mg/dL (0.2-1.3); Blood Urea Nitrogen 24 mg/dL (9-20); Carbon Dioxide 32 mmol/L (22-30); Chloride 104 mmol/L (98-107); Cholesterol 93 mg/dL (0-200); Estimated Glomerular Filt Rate 55; Glucose 84 mg/dL (65-110); HDL Direct 33 mg/dL; Potassium 4.4 mmol/L (3.4-5.0); Sodium 140 mmol/L (137-145); Triglycerides 49 mg/dL (<150)
[2024-10-29 17:55] LABS: LDL Cholesterol Direct 44 mg/dL
[2024-10-29 18:16] LABS: Thyroid Stimulating Hormone 0.528 uIU/mL (0.465-4.680)
== END 2024-10-29 16:25 | disposition home or self-care (01) ==
LOC: ANHLAB 16:30
PROVIDERS: PCP Family Medicine; Visit Provider Family Medicine
DX: E78.49 Other hyperlipidemia (principal); D69.6 Thrombocytopenia, unspecified; N40.0 Benign prostatic hyperplasia without lower urinary tract symptoms; D64.9 Anemia, unspecified; R29.818 Other symptoms and signs involving the nervous system; R41.89 Other symptoms and signs involving cognitive functions and awareness; G47.33 Obstructive sleep apnea (adult) (pediatric); R53.83 Other fatigue; I89.0 Lymphedema, not elsewhere classified; R26.81 Unsteadiness on feet; I11.0 Hypertensive heart disease with heart failure
CPT/HCPCS: 36415; 80053; 80061; 82607; 84443; 85027

== ENCOUNTER 2025-06-03 20:52 | Emergency (ER) | payer MEDICARE, SELFPAY ==
[2025-06-03] VITALS (15 sets, daily range): BP systolic 112–155; BP diastolic 52–98; PULSE 74–96; RESP 18–20; TEMP 36.4; O2SAT 97–100
--- NOTE | ~2025-06-03 | US_ITS ---
US venous doppler LE BI INDICATION: Pain and swelling in both lower extremities. COMPARISON: None. TECHNIQUE: The deep veins of both lower extremities were evaluated with Duplex Doppler, color Doppler, and high-resolution B-mode sonography. Evaluated veins include the common femoral, femoral, and popliteal veins. The calf veins were also evaluated. Compression and augmentation maneuvers were performed. FINDINGS: The deep veins of both lower extremities were compressible and demonstrated spontaneous phasic waveforms with an appropriate response to augmentation maneuvers. The visualized calf veins were patent. IMPRESSION: There was no sonographic evidence of deep vein thrombosis in both lower extremities. Reviewed, dictated and finalized at location S. IMPRESSION: There was no sonographic evidence of deep vein thrombosis in both lower extremi ties.
--- OUTSIDE RECORDS SUMMARY | 2025-06-03 20:54 | XMS_ITS | Clinical Summary ---
Author Organization [facility] [address] Address [address] [place] [address] Care Team Providers Care Fixed Wing Aircraft Flight Engineer Name Role Phone Alex Woodward NP Primary Care Provider Allergies Active Allergy Reactions Criticality Noted Date Comments Penicillins Other (See comments) Low Fainted Medications nitroglycerin (NITROSTAT) 0.[address] 1 tablet (0.4MG) by Sublingual route as needed for shortness of breath or chest tightness 25 0 01/04/20 11 Active albuterol HFA (PROVENTIL HFA,VENTOLIN HFA,PROAIR HFA) 90 mcg/actuation inhaler 10/15/19 23 Active furosemide (LASIX) 40 mg tabletIndications:Ly mphedema of both lower extremities Take 1.5 tablets (60 mg total) by mouth daily 135 tablet 3 10/02/19 24 Active potassium chloride ER 10 mEq CR tablet Take 1 tablet/capsule (10 mEq total) by mouth daily 04/08/20 24 Active atorvastatin (LIPITOR) 40 mg tabletIndications:Co ronary arteriosclerosis in [place] artery TAKE 1 TABLET DAILY 90 tablet 3 07/14/20 24 Active metoprolol XL (TOPROL-XL) 50 mg extended release tabletIndications:Pe rsistent atrial fibrillation (HCC),Essential hypertension,Coronar y arteriosclerosis in [place] artery Take 3 tablets (150 mg total) by mouth daily 270 tablet 1 12/05/19 25 Active dabigatran (Pradaxa) 150 mg capsuleIndications:P ersistent atrial fibrillation (HCC) Take 1 capsule (150 mg total) by mouth 2 (two) times a day 180 capsule 3 04/10/20 25 Active Active Problems Problem Noted Date Diagnosed Date Pericardial effusion 10/20/2023 LEISA (obstructive sleep apnea) 10/02/2023 Morbid (severe) obesity due to excess calories 0 10/02/2023 Class 3 obesity 11/09/2021 Hypokalemia 05/23/2021 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 05/10/2020 Lymphedema of both lower extremities 05/10/2020 Benign prostatic hyperplasia with weak urinary s tream 09/09/2019 Overview (09/09/2019): Added automatically from request for surgery [id number] Hydrocele, left 09/09/2019 Overview (09/09/2019): Added automatically from request for surgery [id number] Stricture of urethral meatus in male 09/09/2019 Overview (09/09/2019): Added automatically from request for surgery [id number] H/O right coronary artery stent placement 2018 [...] Overview (11/16/2016): MIXED HYPERLIPIDEMIA Coronary arteriosclerosis in [place] artery 05/06 Overview (11/17/2016): CRNRY ATHRSCL NATVE VSSL Essential hypertension 05/06/2012 Overview (11/17/2016): BENIGN HYPERTENSION Resolved Problems Problem Noted Date Diagnosed Date Resolved Date Penis disease 04/25/2017 05/23/2021 Assessment & Plan (04/25/2017 10:55 AM CDT): Occ bleeding fr penis, sees Dr. Patten Acute diastolic heart failure 06/29/2015 04/25/2017 Overview (11/18/2016): Acute diastolic CHF (congestive heart failure) Atrial fibrillation 06/29/2015 04/25/20 17 Overview (11/18/2016): Atrial fibrillation, new onset Abnormal result of cardiovas cular function study 12/27/2013 04/25/2017 Overview (11/15/2016): Abnormal cardiovascular function study Precordial pain 12/27/2013 04/25/2017 Overview (11/15/2016): PRECORDIAL PAIN Morbid obesity 05/06/2012 04/25/2017 Overview (11/17/2016): MORBID OBESITY Post percutaneous translumin al coronary angioplasty 05/06/2012 01/13/2019 Overview (11/18/2016): STATUS-POST PTCA Encounters Date Type Department Care Team Description 05/26/2025 Telephone [facility] Cardiology [address] [place] [address] Dank Lu MD from Last 3 Months Surgical History Surgery Date Site/Laterality Comments HEART SURGERY Cardiac Catherization - Cardiac Stent x1 SKIN LESION EXCISION x 2 MOHS SURGERY CIRCUMCISION 08/13/2015 - 08/12/2016 Medical History Medical History Date Comments Hx Other Medical Obesity, Morbid Frequency of urination Hematuria Asthma Cough Urinary incontinence Erectile dysfunction Visual impairment COPD (chronic obstructive pu lmonary disease) A-fib (HCC) Sleep apnea no machine I di dn't want fool with it Hypertension Hyperlipidemia Coronary artery disease Cardiac Stent x 1 Cancer (HCC) Skin - [place]; R ight Posterior Shoulder Family History Medical [...] on file Legal Sex Male 12:53 AM DRAFTER MECHANICAL Gender Identity Not on file Sexual Orientation Not on file Obstetrics History Last Filed Vital Signs Vital Sign Reading Time Taken Comments Blood Pressure 122/76 02/04/2025 1:13 PM CDT Pulse 89 02/04/2025 1:13 PM CDT Temperature 35.6 C (96 F) 10/02/2019 1:18 PM DRAFTER MECHANICAL Respiratory Rate 22 10/02/2019 3:00 PM DRAFTER MECHANICAL Oxygen Saturation 95% 02/04/2025 1:13 PM CDT Inhaled Oxygen Concentration - - Weight 122.5 kg (270 lb) 02/04/2025 1:13 PM CDT Height 185.4 cm (6' 1) 02/04/2025 1:13 PM CDT Body Mass Index 35.62 02/04/2025 1:13 PM CDT Plan of Treatment Health Maintenance Due Date Last Done Comments Depression Screening 1943 Fall Risk Assessment 1943 DTaP/Tdap/Td Vaccine (1 - Tdap) 1954 Hepatitis B Screening 1961 Zoster Vaccine (1 of 2) 1993 Well Visit 65+ 2008 Pneumococcal vaccine 65+ (2 of 2 - PPSV23, PCV20, or PCV21) 09/17/2016 07/23/2016 Influenza Vaccine (#1) 2025 8, 06/05/2017, 07/23/2016, Additional history exists Insurance MEDICARE [facility] AETNA MEDICARE Care Teams Fixed Wing Aircraft Flight Engineer Relationship Specialty Start Date End Date Alex Woodward NP [address] [place] [address] PCP - General Nurse Practitioner 03/20/23
--- OUTSIDE RECORDS SUMMARY | 2025-06-03 20:54 | XMS_ITS | Encounter Summary ---
Author Organization [facility] Address [address] [place] [address] Care Team Providers Care Rat Breeder Name Role Phone Alex Woodward NP Primary Care Provider Encounter Details Date Type Department Care Team (Late st Contact Info) Description 05/26/2025 Telephone [facility] Cardiology [address] [place] [address] Dank Lu MD [address] [facility] [address] [place] [address] Social History Tobacco Use Types Packs/Day Years Used Date Smoking Tobacco: Never Smokeless Tobacco: Never Alcohol Use Standard Drinks/Week Comments No 0 (1 standard drink = 0.6 oz pur e alcohol) Sex and Gender Information Value Date Recorded Sex Assigned at Not on file Legal Sex Male 12:53 AM STUD DRIVER Gender Identity Not on file Sexual Orientation Not on file documented as of this encounter Miscellaneous Notes * Telephone Encounter - Danuta Colunga NP - 05/26/2025 12:38 PM CDT Agree, thank you for calling him. * Telephone Encounter - Hali Simeon RN - 05/26/2025 11:38 AM CDT FYI to CT: Spoke to pt, Sunday he lost his balance and fell into the hamper in his bathroom, He has had intermittent chest discomfort with movement since that time. Cardiac Stent placed 12 years ago. States pain is with moving or coughing, no pain at rest. A hot water bottle to the area helps relieve pain. Ptdenies SOB, back pain, arm numbness or tingling. No visible bruising. Reassured pt this does not sound cardiac in nature and that I would recommend he reach out to his PCP or go to Urgent Care for possible xrays. * Telephone Encounter - Lizette Hopkins - 05/26/2025 8:26 AM CDT Patient called in and wanted to schedule an appt with [facility]. I let him know that he is booked out right now, but I could see about getting him in with CT. I sent a message to the TN's to see if we could see him today at 2:30pm. He states that he fell and has some bruising around the ribs, but is alsohaving pain in the chest. He is concerned about his most recent stent. CT is wanting a nurse to speak to him prior to adding him to the schedule. Please advise, thank you. Contact : [phone] documented in this encounter Plan of Treatment Not on file documented as of this encounter Visit Diagnoses Not on filedocumented in this encounter Care Teams Rat Breeder Relationship Specialty Start Date End Date Alex Woodward NP [address] [place] [address] PCP - General Nurse Practitioner 03/20/23 documented as of this encounter
--- NOTE | 2025-06-03 22:53 | ED.EXTPRO ---
HPI - Extremity Problem General Chief complaint: Extremity Problem,Nontraumatic Stated complaint: I think I might have a blood clot or infection Time Seen by Provider: 06/03/25 22:06 History of Present Illness HPI Narrative: 79-year-old male with history of CHF, chronic atrial fibrillation on Pradaxa, lymphedema and COPD presenting to the emergency department with warmth and redness as well as pain in his right lower extremity. He states that he had his ingrown toenails removed at an outpatient office visit 2 days ago and prior to that was holding his Pradaxa for 2 days for the procedure. No complications from this and he has been doing well but for last days noticed pain and some mild swelling to his right lower extremity as well as redness and warmth. No systemic symptoms. States he is also having some chronic prostate issues and some dribbling urination feeling he cannot fully empty. Denies any urinary complaints otherwise. No traumatic injuries. No falls. Was otherwise in his normal state of health. Related Data Home Medications ?Medication ?Instructions ?Recorded ?Confirmed ?Last Taken ?Type atorvastatin 40 mg tablet 40 mg PO DAILY 08/04/19 07/20/23 02/27/22 History dabigatran etexilate 150 mg 150 mg PO BID 08/04/19 07/20/23 02/25/22 History capsule (Pradaxa) metoprolol succinate 50 mg 150 mg PO DAILY 02/06/23 07/20/23 Unknown History tablet,extended release 24 hr (Toprol XL) Allergies Allergy/AdvReac Type Severity Reaction Status Date / Time dutasteride Allergy Unknown Unknown Verified 06/03/25 20:55 finasteride Allergy Unknown Unknown Verified 06/03/25 20:55 Penicillins Allergy Unknown Unknown Verified 06/03/25 20:55 Review of Systems Review of Systems: As reviewed above in HPI [facility] Past Medical History Medical History BPH (benign prostatic hyperplasia) Sleep apnea Chronic atrial fibrillation CHF (congestive heart failure) Diastolic dysfunction Lymphedema of both lower extremities Chronic obstructive pulmonary disease, unspecified Essential (primary) hypertension Family History Family History Father Patient's father is Carcinoma of colon Mother Heart disease Grandparent Cerebrovascular accident Social History Social History Smoking status: Never smoker Alcohol intake: former Substance use: never Substance use type: does not use Lack of Transportation: No Lack of Food: Never True Current Housing: I Have Housing Concerned About Future Housing: No Difficulty Paying Gas/Electric Bills: No Difficulty Paying for Meds: No Currently Unemployed: No Education: High School Diploma/GED Difficulty w/ Childcare or Family Care: No Living arrangements: with family Spiritual care concerns: No Exam Narrative: GENERAL: [Well-appearing, well-nourished, and in no acute distress.] HEAD: [Normocephalic, atraumatic.] EYES: [PERRLA and EOMI.] ENT: Nares clear, no rhinorrhea or epistaxis. Mucous membranes moist. NECK: Supple. CHEST: [Clear to auscultation. No respiratory distress.] HEART: [Regular rate and rhythm]. No murmur heard. [Normal peripheral pulses.] ABDOMEN: [Soft, nondistended], [nontender], [No rigidity or guarding] EXTREMITIES: Normal range of motion. Bilateral lymphedema noted with tree trunk like extremities. The right lower extremity does have some marked redness and warmth as well as tenderness to palpation but no significant asymmetric swelling. Bilateral toenails appear to have recently had ingrown toenail surgery without any signs of obvious infection purulence or redness/drainage. No ulcerations or bleeding. SKIN: Warm, dry, no rash. NEURO: [No focal deficits]. Alert and oriented [x3.] PSYCH: [Normal mood and affect.] Course Vital Signs Vital signs: Vital Signs Temperature 36.4 C 06/03/25 20:57 Pulse Rate 74 06/03/25 20:57 Respiratory Rate 20 06/03/25 20:57 Blood Pressure 112/52 L 06/03/25 20:57 Pulse Oximetry 97 06/03/25 20:57 Oxygen Delivery Room Air 06/03/25 20:57 Temperature 36.4 C 06/03/25 20:57 Pulse Rate 96 06/03/25 23:00 Respiratory Rate 18 06/03/25 23:00 Blood Pressure 111/55 L 06/04/25 02:46 Pulse Oximetry 100 06/04/25 02:32 Oxygen Delivery Room Air 06/03/25 20:57 MDM - Extremity (Nontraumatic) MDM Narrative Medical decision making narrative: 79-year-old male with history of CHF, chronic atrial fibrillation on Pradaxa, lymphedema and COPD presenting to the emergency department with warmth and redness as well as pain in his right lower extremity. He states that he had his ingrown toenails removed at an outpatient office visit 2 days ago and prior to that was holding his Pradaxa for 2 days for the procedure. No complications from this and he has been doing well but for last days noticed pain and some mild swelling to his right lower extremity as well as redness and warmth. No systemic symptoms. States he is also having some chronic prostate issues and some dribbling urination feeling he cannot fully empty. Denies any urinary complaints otherwise. No traumatic injuries. No falls. Was otherwise in his normal state of health. Normal range of motion. Bilateral lymphedema noted with tree trunk like extremities. The right lower extremity does have some marked redness and warmth as well as tenderness to palpation but no significant asymmetric swelling. Bilateral toenails appear to have recently had ingrown toenail surgery without any signs of obvious infection purulence or redness/drainage. No ulcerations or bleeding. Patient is hemodynamically stable and afebrile. Suspect cellulitis of the right lower extremity likely source being skin infection from recent surgical procedure. He is not diabetic and low risk but does have lymphedema and CHF which raises his risk for MRSA and skin infections. Basic laboratory studies obtained at this time to assess kidney function as we would preferentially place the patient on Bactrim at this time. Ultrasound of bilateral lower extremities obtained given that he stop his blood thinners briefly to make sure he can undergo the procedure safely. Urinalysis ordered. Bladder scan showed 92 cc retained, patient has BPH and previous TURP without signs of obstruction today. Patient still not able to urinate requiring Beltrán catheterization after repeat bladder scan showing greater than 300 cc. Patient given fluids as his laboratory studies do show some dehydration with hemoconcentration on the CBC with elevated cell lines as well as a mild leukocytosis likely reactive to patient's right lower extremity cellulitis evident on examination. Electrolytes unremarkable. Normal creatinine. Urinalysis without signs of infection. His venous Doppler unremarkable. Patient felt better after Beltrán catheterization. Informed of the findings including cellulitis and will follow-up with Urology regarding the urinary tension likely secondary to prostatomegaly and BPH. Patient is noncompliant with his medications including Flomax and previous finasteride. Patient given strict return precautions and safe for discharge home at this time. Lab Data 06/03/25 23:02 06/03/25 23:02 Labs: Lab Results 06/03/25 06/04/25 Range/Units 23:02 02:38 WBC 15.7 H (4.5-10.0) K/mm3 RBC 5.00 (4.6-6.20) M/mm3 Hgb 14.5 (14.0-18.0) g/dL Hct 46.5 (42.0-52.0) % MCV 93.0 (80-100) fl MCH 29.0 (26-34) pg MCHC 31.2 L (32-36) g/dl RDW 15.8 H (11.5-14.5) % Plt Count 912 H D (150-375) k/mm3 MPV 8.9 (7.4-10.4) fl Immature Gran % (Auto) 0.3 (0-0.5) % Neut % (Auto) 93.3 H (45.5-73.1) % Lymph % (Auto) 2.5 L (18.3-44.2) % [place] % (Auto) 3.2 (2.6-8.5) % Eos % (Auto) 0.3 (0-4.4) % Baso % (Auto) 0.4 (0.2-1.2) % Lymph # (Auto) 0.39 L (0.9-3.2) K/mm3 [place] # (Auto) 0.5 (0.1-0.6) K/mm3 Eos # (Auto) 0.0 (0-0.3) K/mm3 Baso # (Auto) 0.1 (0.0-0.1) K/mm3 Abs Immat Gran (auto) 0.04 H (0.00-0.031) K/mm3 Absolute Neuts (auto) 14.7 H (1.3-6.7) K/mm3 Absolute Nucleated RBC 0.000 (0.0-0.012) K/mm3 Band Neutrophils % Not Reportable Nucleated RBC % 0.0 (0.0-0.2) % Platelet Estimate Increased (Adequate) Large Platelets Present Schistocytes None seen PT 21.2 H (11.1-14.7) Seconds INR 1.9 APTT 54.4 H (22.3-36.8) Seconds Sodium 139 (137-145) mmol/L Potassium 4.8 (3.4-5.0) mmol/L Chloride 102 (98-107) mmol/L Carbon Dioxide 31 H (22-30) mmol/L Anion Gap 6 (4-12) mmol/L BUN 26 H (9-20) mg/dL Creatinine 1.15 (0.7-1.3) mg/dL Estim Creat Clear Calc Not Reportable Estimated GFR > 60 (59 - ) Glucose 95 (65-110) mg/dL Calcium 9.5 (8.4-10.2) mg/dL Total Bilirubin 2.0 H (0.2-1.3) mg/dL AST 40 (17-59) U/L ALT 27 (6-50) U/L Alkaline Phosphatase 84 (38-126) U/L Total Protein 6.8 (6.3-8.2) g/dL Albumin 3.7 (3.5-5.1) g/dL Urine Color Dark yellow (Yellow) Urine Appearance Clear (Clear) Urine pH 5.5 (5.0-9.0) Ur Specific [place] 1.020 (1.001-1.035) Urine Protein Negative (Negative) mg/dL Urine Glucose (UA) Negative (Negative) mg/dL Urine Ketones Trace H (Negative) mg/dL Ur Blood (Man) 1+ H (Negative) Urine Nitrate Negative (Negative) Urine Bilirubin Negative (Negative) Urine Urobilinogen 1.0 (<2.0) mg/dL Leukocyte Esterase Rfl Negative (Negative) TYRONE/UL Urine RBC 6-10 H (0-2) /hpf Urine WBC 0-5 (0-3) /hpf Ur Squamous Epith Cells None seen (Few) /hpf Urine Bacteria None seen /hpf Urine Casts 0-2 Discharge Plan Discharge Clinical Impression: Cellulitis of leg, right, Acute urinary retention, Benign prostatic hyperplasia (BPH) with straining on urination Patient Disposition: Home Condition: Stable Instructions: Antibiotic Form, Urinary Retention in Men (ED), Enlarged Prostate (BPH) (ED), Cellulitis (ED) Additional Instructions: You have an infection of the right lower extremity which we will treat with oral antibiotics for next 7 days. You also had some urinary retention which is unrelated but secondary to your benign prostatic hyperplasia most likely. We have placed a Beltrán catheter given your inability urinate. Where the catheter until you can see the urologist on outpatient basis. Return with any emergent concerns or difficulty urinating with a catheter. Patient Language: Hungarian Prescriptions: New sulfamethoxazole-trimethoprim [Bactrim DS] 800-160 mg tablet 1 tablet PO Q12H Qty: 14 0RF No Action atorvastatin 40 mg tablet 40 mg PO DAILY Pradaxa 150 mg capsule 150 mg PO BID metoprolol succinate [Toprol XL] 50 mg tablet extended release 24 hr 150 mg PO DAILY furosemide 40 mg tablet 60 mg PO DAILY Qty: 135 1RF potassium chloride [Klor-Con 10] 10 mEq tablet extended release 10 meq PO BID Qty: 180 1RF Follow-up/Referrals: Hunter Astorga MD [Primary Care Provider, Family Practice] Kit Zamora MD [Physician, Urology] - 3 Days Referral Note: Acute urinary retention, BPH Time of Disposition: 02:57
--- NOTE | 2025-06-03 22:57 | PC.NURSE ---
2139---patient reporting difficulty walking-I was walking fine yesterday, redness noted to lower legs which patient reports is not that abnormal-they will weep too and I have to wrap them
--- NOTE | 2025-06-03 23:07 | PC.NURSE ---
Report to [facility]
[2025-06-03 23:11] LABS: Hematocrit 46.5 % (42.0-52.0); Hemoglobin 14.5 g/dL (14.0-18.0); Immature Granulocyte Percent A 0.3 % (0-0.5); Lymphocytes Absolute Auto 0.39 K/mm3 (0.9-3.2); Mean Corpuscular HGB Conc 31.2 g/dl (32-36); Mean Corpuscular Hemoglobin 29.0 pg (26-34); Mean Corpuscular Volume 93.0 fl (80-100); Nucleated Red Blood Cells Absolute Auto 0.000 K/mm3 (0.0-0.012); Nucleated Red Blood Cells Perc 0.0 % (0.0-0.2); Platelet Count Result 912 k/mm3 (150-375); Red Blood Count 5.00 M/mm3 (4.6-6.20); White Blood Count 15.7 K/mm3 (4.5-10.0)
[2025-06-03 23:23] LABS: Alanine Aminotransferase 27 U/L (6-50); Albumin Level 3.7 g/dL (3.5-5.1); Alkaline Phosphatase 84 U/L (38-126); Anion Gap 6 mmol/L (4-12); Aspartate Amino Transferase 40 U/L (17-59); Bilirubin,Total 2.0 mg/dL (0.2-1.3); Blood Urea Nitrogen 26 mg/dL (9-20); Calcium 9.5 mg/dL (8.4-10.2); Carbon Dioxide 31 mmol/L (22-30); Chloride 102 mmol/L (98-107); Estimated Glomerular Filt Rate > 60; Glucose 95 mg/dL (65-110); Potassium 4.8 mmol/L (3.4-5.0); Sodium 139 mmol/L (137-145); Total Protein 6.8 g/dL (6.3-8.2)
[2025-06-03 23:29] LABS: INR 1.9; Prothrombin Time 21.2 Seconds (11.1-14.7)
[2025-06-03 23:30] LABS: Partial Thromboplastin Time 54.4 Seconds (22.3-36.8)
[2025-06-03 23:33] LABS: Schistocytes None Seen
[2025-06-03] MEDS: SULFAMETHOXAZOLE/TRIMETHOPRIM 800/160 MG DS TABLET 1 TAB PO (23:58)
[2025-06-04] VITALS (10 sets, daily range): BP systolic 111–135; BP diastolic 55–67; O2SAT 98–100
[2025-06-04] MEDS: TAMSULOSIN HCL 0.4 MG CAPSULE PO (01:30)
[2025-06-04] MEDS: LACTATED RINGERS 1,000 ML 999 ML IV CONT (01:30)
[2025-06-04 02:48] LABS: Add Urine Microscopic? YES; Appearance Urine Clear (Clear); Glucose Urine UA Negative (Negative); Leukocyte Esterase Ur Negative LEU/UL (Negative); Nitrate Urine Negative (Negative); Non Pathogenic Casts 0-2; Specific Grav Ur 1.020 (1.001-1.035)
== END 2025-06-04 03:51 | disposition home or self-care (01) ==
PROVIDERS: Emergency Provider Student in an Organized Health Care Education/Training Program; PCP Family Medicine
DX: L03.115 Cellulitis of right lower limb (principal); I50.9 Heart failure, unspecified; I48.20 Chronic atrial fibrillation, unspecified; Z79.01 Long term (current) use of anticoagulants; J44.9 Chronic obstructive pulmonary disease, unspecified; I11.0 Hypertensive heart disease with heart failure; N40.1 Benign prostatic hyperplasia with lower urinary tract symptoms; N39.43 Post-void dribbling; R33.9 Retention of urine, unspecified; R39.16 Straining to void
CPT/HCPCS: 36415; 51702; 80053; 81001; 85025; 85610; 85730; 93970; 96360; 99284; A9270; J7120

== ENCOUNTER 2025-06-10 04:05 | Inpatient (IN) | payer MEDICARE, SELFPAY ==
[2025-06-10] VITALS (25 sets, daily range): BP systolic 107–139; BP diastolic 41–86; PULSE 68–105; RESP 17–30; TEMP 36.2–36.9; O2SAT 95–100; BMI 35.9
--- NOTE | 2025-06-10 04:56 | ED.MALEGU ---
HPI - Male Genitourinary General Chief complaint: Urogenital-Male Stated complaint: No urine output x 24 hours Time Seen by Provider: 06/10/25 04:59 Source: patient and EMS Mode of arrival: EMS Limitations: no limitations History of Present Illness HPI Narrative: This is an 79-year-old male with history of COPD, lymphedema, CHF, hypertension, hyperlipidemia who presents to the ED via EMS for multiple complaints. Patient states that he had ingrown toenails removed last week. He has had increasing pain to the right lower extremity spreading up his leg with some redness. Denies fevers, chills. He also states that last week he had a Beltrán catheter placed and it was working decently well until yesterday when it stopped draining. He has been having suprapubic pain since then. Related Data Home Medications ?Medication ?Instructions ?Recorded ?Confirmed ?Last Taken ?Type atorvastatin 40 mg tablet 40 mg PO DAILY 08/04/19 07/20/23 02/27/22 History dabigatran etexilate 150 mg 150 mg PO BID 08/04/19 07/20/23 02/25/22 History capsule (Pradaxa) metoprolol succinate 50 mg 150 mg PO DAILY 02/06/23 07/20/23 Unknown History tablet,extended release 24 hr (Toprol XL) Allergies Allergy/AdvReac Type Severity Reaction Status Date / Time dutasteride Allergy Unknown Unknown Verified 06/03/25 20:55 finasteride Allergy Unknown Unknown Verified 06/03/25 20:55 Penicillins Allergy Unknown Unknown Verified 06/03/25 20:55 Review of Systems Review of Systems: Gen.: Denies fevers or chills Eyes: Denies eye pain or visual change ENT: Denies congestion Respiratory: Denies shortness of breath or cough CV: Denies chest pain or palpitations GI: Denies abdominal pain nausea, emesis or diarrhea as per HPI Musculoskeletal: Denies back pain or muscle pain Neuro: Denies numbness, tingling, weakness or focal weakness Skin: As per HPI Except as documented, all other systems reviewed and negative [facility] Past Medical History Medical History BPH (benign prostatic hyperplasia) Sleep apnea Chronic atrial fibrillation CHF (congestive heart failure) Diastolic dysfunction Lymphedema of both lower extremities Chronic obstructive pulmonary disease, unspecified Essential (primary) hypertension Family History Family History Father Patient's father is Carcinoma of colon Mother Heart disease Grandparent Cerebrovascular accident Social History Social History Smoking status: Never smoker Alcohol intake: former Substance use: never Substance use type: does not use Lack of Transportation: No Lack of Food: Never True Current Housing: I Have Housing Concerned About Future Housing: No Difficulty Paying Gas/Electric Bills: No Difficulty Paying for Meds: No Currently Unemployed: No Education: High School Diploma/GED Difficulty w/ Childcare or Family Care: No Living arrangements: with family Spiritual care concerns: No Exam Narrative: APPEARANCE: No acute distress, nontoxic, resting in bed EYES: EOMI HEENT: Normocephalic, atraumatic, OMM RESPIRATORY: No respiratory distress Clear to auscultation bilaterally with no rhonchi wheezing or rales. CARDIOVASCULAR: Regular rate and rhythm without murmurs rubs or gallops. ABDOMINAL: Obese. Soft, suprapubic tenderness to palpation., nondistended, no rebound or guarding : There is purulence coming from the urethral meatus. Beltrán catheter is in place with significantly cloudy urine in the bag. Significant swelling to the bilateral testicles, nontender MUSCULOSKELETAl: Moves all extremities. Significant lymphedema to the bilateral lower extremities NEURO: Awake and alert. Following commands, speech normal, no focal deficits SKIN:: Warm, dry. Erythema to the right lower leg from the ankle to the knee with associated tenderness to palpation. PSYCHIATRIC: Normal affect/mood, Course Vital Signs Vital signs: Vital Signs Temperature 98.5 F 06/10/25 04:09 Pulse Rate 100 06/10/25 04:09 Respiratory Rate 18 06/10/25 04:09 Blood Pressure 131/72 06/10/25 04:09 Pulse Oximetry 100 06/10/25 04:09 Temperature 98.5 F 06/10/25 04:09 Pulse Rate 91 06/10/25 06:31 Respiratory Rate 30 H 06/10/25 06:31 Blood Pressure 107/66 06/10/25 06:31 Pulse Oximetry 100 06/10/25 06:31 MDM - Male Genitourinary MDM Narrative Medical decision making narrative: 79-year-old male Presenting for Beltrán problem and concerns for cellulitis right lower leg pain. On initial evaluation patient was in no acute distress afebrile, hemodynamic stable. Differentials include but are not limited to: UTI, balanitis, cellulitis, sepsis, urinary retention, lymphedema Notable exam findings: Suprapubic tenderness to palpation. Beltrán catheter in place with a small amount of surrounding purulence drainage. Significant lymphedema bilateral lower extremities with erythema to the right lower extremity from the ankle to the knee with associated tenderness to palpation. Notable lab findings: Leukocytosis at 12.4, improved from 15.1 last week. Significant thrombocytosis at 1061. Mildly elevated creatinine at 1.35, up from 1.15. Mildly elevated LFTs. UA showed no evidence of UTI. Beltrán catheter was removed and replaced without significant difficulty and had immediate return of 800 cc of urine. Patient will require admission for failure of outpatient treatment of cellulitis case was discussed with hospitalist who will admit the patient. Did recommend adding on vancomycin in addition to the Rocephin that was given. Patient and family were agreeable to this plan. Medical Records Attestation: I reviewed the patient's medical records. Medical records narrative: Patient seen in this facility 06/03 for pain related to ingrown toenail removal as well as urinary retention. He had Beltrán catheter placed at that time. Placed on outpatient antibiotics. Had a venous Doppler performed at that time that was negative for DVT. Lab Data 06/10/25 05:02 06/10/25 05:02 Labs: Lab Results 06/10/25 06/10/25 Range/Units 05:02 05:43 WBC 12.4 H (4.5-10.0) K/mm3 RBC 4.41 L (4.6-6.20) M/mm3 Hgb 13.1 L (14.0-18.0) g/dL Hct 41.1 L (42.0-52.0) % MCV 93.2 (80-100) fl MCH 29.7 (26-34) pg MCHC 31.9 L (32-36) g/dl RDW 15.8 H (11.5-14.5) % Plt Count 1061 H (150-375) k/mm3 MPV 8.7 (7.4-10.4) fl Immature Gran % (Auto) 1.0 H (0-0.5) % Neut % (Auto) 79.5 H (45.5-73.1) % Lymph % (Auto) 6.7 L (18.3-44.2) % [place] % (Auto) 10.4 H (2.6-8.5) % Eos % (Auto) 1.8 (0-4.4) % Baso % (Auto) 0.6 (0.2-1.2) % Lymph # (Auto) 0.83 L (0.9-3.2) K/mm3 [place] # (Auto) 1.3 H (0.1-0.6) K/mm3 Eos # (Auto) 0.2 (0-0.3) K/mm3 Baso # (Auto) 0.1 (0.0-0.1) K/mm3 Abs Immat Gran (auto) 0.12 H (0.00-0.031) K/mm3 Absolute Neuts (auto) 9.9 H (1.3-6.7) K/mm3 Absolute Nucleated RBC 0.000 (0.0-0.012) K/mm3 Band Neutrophils % Not Reportable Nucleated RBC % 0.0 (0.0-0.2) % Platelet Estimate Increased (Adequate) Large Platelets Present Poikilocytosis 2+ Anisocytosis 2+ Darrell Cells 2+ Schistocytes None seen Sodium 136 L (137-145) mmol/L Potassium 3.4 (3.4-5.0) mmol/L Chloride 99 (98-107) mmol/L Carbon Dioxide 31 H (22-30) mmol/L Anion Gap 6 (4-12) mmol/L BUN 24 H (9-20) mg/dL Creatinine 1.35 H (0.7-1.3) mg/dL Estim Creat Clear Calc 53 ml/min Estimated GFR 51 L (59 - ) Glucose 94 (65-110) mg/dL Lactic Acid 1.3 (0.7-2.0) mmol/L Calcium 8.8 (8.4-10.2) mg/dL Total Bilirubin 1.2 (0.2-1.3) mg/dL AST 74 H (17-59) U/L ALT 75 H (6-50) U/L Alkaline Phosphatase 120 (38-126) U/L Total Protein 6.5 (6.3-8.2) g/dL Albumin 3.2 L (3.5-5.1) g/dL Urine Color Yellow (Yellow) Urine Appearance Cloudy H (Clear) Urine pH 5.5 (5.0-9.0) Ur Specific [place] 1.016 (1.001-1.035) Urine Protein 1+ H (Negative) mg/dL Urine Glucose (UA) Negative (Negative) mg/dL Urine Ketones Negative (Negative) mg/dL Ur Blood (Man) 3+ H (Negative) Urine Nitrate Negative (Negative) Urine Bilirubin Negative (Negative) Urine Urobilinogen 2.0 H (<2.0) mg/dL Leukocyte Esterase Rfl 2+ H (Negative) TYRONE/UL Urine RBC >100 H (0-2) /hpf Urine WBC 6-10 H (0-3) /hpf Ur Squamous Epith Cells None seen (Few) /hpf Urine Bacteria None seen /hpf Urine Casts 3-5 ECG Data EKG #1: Attestation: I personally reviewed and interpreted this ECG as follows: ECG completion date: 06/10/25 ECG completion time: 05:50 Prior ECG tracings: not available for review Interpretation: AFib rate of 85, left axis deviation, no acute ST or T-wave changes. Discharge Plan Discharge Clinical Impression: Lymphedema, Acute on chronic urinary retention, Acute balanitis due to infection Cellulitis Qualifiers: Site of cellulitis: extremity Site of cellulitis of extremity: lower extremity Laterality: right Qualified Code(s): L03.115 - Cellulitis of right lower limb A-fib Qualifiers: Atrial fibrillation type: unspecified Qualified Code(s): I48.91 - Unspecified atrial fibrillation Patient Disposition: Still a Patient Condition: Stable
--- NOTE | 2025-06-10 05:15 | ECG_ITS ---
Test Date: 2025-06-10 05:50:54 Measurements Intervals [place] Rate: 85 P: 0 NH: 0 QRS: -43 QRSD: 118 T: 89 QT: 386 QTc: 459 Interpretive Statements ATRIAL FIBRILLATION WITH VENTRICULAR PREMATURE COMPLEX LEFT AXIS DEVIATION INTRAVENTRICULAR CONDUCTION DELAY LOW QRS VOLTAGE IN PRECORDIAL LEADS CANNOT R/O SEPTAL INFARCT, AGE INDETERMINATE BORDERLINE ST-T WAVE ABNORMALITY- HIGH LATERAL LEADS ABNORMAL ECG No previous ECG available for comparison Electronically Signed On 06-10-2025 05:59:03 CDT by Jose Enrique Cano D.O.
[2025-06-10 05:19] LABS: Hematocrit 41.1 % (42.0-52.0); Hemoglobin 13.1 g/dL (14.0-18.0); Immature Granulocyte Percent A 1.0 % (0-0.5); Lymphocytes Absolute Auto 0.83 K/mm3 (0.9-3.2); Mean Corpuscular HGB Conc 31.9 g/dl (32-36); Mean Corpuscular Hemoglobin 29.7 pg (26-34); Mean Corpuscular Volume 93.2 fl (80-100); Nucleated Red Blood Cells Absolute Auto 0.000 K/mm3 (0.0-0.012); Nucleated Red Blood Cells Perc 0.0 % (0.0-0.2); Platelet Count Result 1061 k/mm3 (150-375); Red Blood Count 4.41 M/mm3 (4.6-6.20); White Blood Count 12.4 K/mm3 (4.5-10.0)
[2025-06-10] MEDS: HYDROmorphone HCL INJ (*CRX) 1 MG/ML SYR 0.5 MG IV PUSH (05:25)
[2025-06-10] MEDS: cefTRIAXone 2 GM in SODIUM CHLORIDE 0.9% IV 100 ML 200 ML IVPB (05:27)
[2025-06-10] MEDS: SODIUM CHLORIDE 0.9% IV 1,000 ML 999 ML IV CONT (05:27)
[2025-06-10] MEDS: LIDOCAINE 2% GEL UROJET 10 ML PKG MUCOUS MEM (05:28)
[2025-06-10 05:31] LABS: Alanine Aminotransferase 75 U/L (6-50); Albumin Level 3.2 g/dL (3.5-5.1); Alkaline Phosphatase 120 U/L (38-126); Anion Gap 6 mmol/L (4-12); Aspartate Amino Transferase 74 U/L (17-59); Bilirubin,Total 1.2 mg/dL (0.2-1.3); Blood Urea Nitrogen 24 mg/dL (9-20); Calcium 8.8 mg/dL (8.4-10.2); Carbon Dioxide 31 mmol/L (22-30); Chloride 99 mmol/L (98-107); Estimated CRCL calculation 53 ml/min; Estimated Glomerular Filt Rate 51; Glucose 94 mg/dL (65-110); Potassium 3.4 mmol/L (3.4-5.0); Sodium 136 mmol/L (137-145); Total Protein 6.5 g/dL (6.3-8.2)
[2025-06-10 05:56] LABS: Anisocytosis 2+; Poikilocytosis 2+
[2025-06-10 05:57] LABS: Burr Cells 2+; Schistocytes None Seen
[2025-06-10 06:01] LABS: Add Urine Microscopic? YES; Appearance Urine Cloudy (Clear); Glucose Urine UA Negative (Negative); Leukocyte Esterase Ur 2+ LEU/UL (Negative); Nitrate Urine Negative (Negative); Specific Grav Ur 1.016 (1.001-1.035)
--- NOTE | 2025-06-10 07:36 | P.HP_ITS ---
H&P: HPI History of Present Illness Date/Time: 06/10/25 07:36 Chief Complaint: right lower extremity redness Narrative: Patient is a 79 year old male with PMH of COPD, CHF, HTN, HLD, lymphedema and chronic atrial fibrillation. Patient presented to the ER with complaints of worsening edema, redness and pain to his right lower extremity despite being on oral antibiotics and suprapubic pain due to his grubbs catheter not draining. In the ER it was noted that the patient's grubbs catheter which was placed on 06/03/25 in the ER at [facility] was in place with purulent drainage around the meatus. Grubbs catheter was exchanged and drained approx. 800 mL of urine. Patient right lower extremity was noted to have erythema extending from the toes to the thigh, warmth and tenderness. Labs showed wbc 12.4, creatinine 1.35, mildly elevated LFT's and UA showed > 100 RBC, 2+ leukocyte esterase and 6-10 wbc. Patient was taking Bactrim at home since 06/03 when he was last seen in the ER. Patient failed treatment of his cellulitis with outpatient antibiotics. Patient was started on IV vancomycin and IV Rocephin. Patient was given IV fluids for his LORE. Patient will be started on tamsulosin and urology will be consulted. Wound care will be consulted for patient's RLE open areas and drainage. Patient was admitted to [facility] for further evaluation and treatment. Review of Systems Review of Systems: All systems reviewed & are unremarkable except as noted in HPI and below PMFSH Past Medical History Medical History BPH (benign prostatic hyperplasia) Sleep apnea Chronic atrial fibrillation CHF (congestive heart failure) Diastolic dysfunction Lymphedema of both lower extremities Chronic obstructive pulmonary disease, unspecified Essential (primary) hypertension Family History Family History Father Patient's father is Carcinoma of colon Mother Heart disease Grandparent Cerebrovascular accident Social History Social History Smoking status: Never smoker Alcohol intake: never Substance use: never Substance use type: does not use Lack of Transportation: No Lack of Food: Never True Current Housing: I Have Housing Concerned About Future Housing: No Difficulty Paying Gas/Electric Bills: No Difficulty Paying for Meds: No Currently Unemployed: No Education: High School Diploma/GED Difficulty w/ Childcare or Family Care: No Living arrangements: with family Spiritual care concerns: No Meds Home Medications and Allergies Home Medications ?Medication ?Instructions ?Recorded ?Confirmed ?Type atorvastatin 40 mg tablet 40 mg PO DAILY 08/04/1905/14 History dabigatran etexilate 150 mg 150 mg PO BID 08/04/19 History capsule (Pradaxa) metoprolol succinate 50 mg 150 mg PO DAILY 02/06/23 History tablet,extended release 24 hr (Toprol XL) furosemide 40 mg tablet 60 mg (1.5 x 40 mg) PO DAILY #135 10/21/24 06/10/25 Rx tabs potassium chloride 10 mEq 10 meq PO BID #180 tabs 10/0706/10/25 Rx tablet,extended release (Klor-Con) Allergies Allergy/AdvReac Type Severity Reaction Status Date / Time dutasteride Allergy Unknown Unknown Verified 06/10/25 08:56 finasteride Allergy Unknown Unknown Verified 06/10/25 08:56 Penicillins Allergy Unknown Unknown Verified 06/10/25 08:56 Vital Signs Vital Signs - 24 hr 06/10/25 04:09 06/10/25 04:09 06/10/25 04:10 Temperature 98.5 F Pulse Rate 100 Respiratory Rate 18 Blood Pressure 131/72 131/72 Pulse Oximetry 100 99 100 06/10/25 04:15 06/10/25 04:16 06/10/25 04:30 Temperature Pulse Rate Respiratory Rate Blood Pressure 139/65 Pulse Oximetry 100 100 99 06/10/25 04:31 06/10/25 04:45 06/10/25 04:46 Temperature Pulse Rate Respiratory Rate Blood Pressure 114/71 124/72 Pulse Oximetry 100 99 06/10/25 05:00 06/10/25 05:01 06/10/25 05:15 Temperature Pulse Rate 93 Respiratory Rate 21 H Blood Pressure 115/41 L Pulse Oximetry 100 97 100 06/10/25 05:16 06/10/25 05:30 06/10/25 05:31 Temperature Pulse Rate 88 105 H 95 Respiratory Rate 24 H 18 21 H Blood Pressure 132/86 117/61 Pulse Oximetry 100 100 100 06/10/25 05:45 06/10/25 05:47 06/10/25 06:00 Temperature Pulse Rate 89 95 86 Respiratory Rate 26 H 26 H 17 Blood Pressure 110/58 L Pulse Oximetry 98 99 100 06/10/25 06:01 06/10/25 06:15 06/10/25 06:16 Temperature Pulse Rate 90 85 85 Respiratory Rate 17 21 H 17 Blood Pressure 110/64 111/60 Pulse Oximetry 98 99 97 06/10/25 06:31 Temperature Pulse Rate 91 Respiratory Rate 30 H Blood Pressure 107/66 Pulse Oximetry 100 Exam Const: General: comfortable and no acute distress HENMT: Face/Nose/Sinus: Normal nares present Mouth: Yes moist mucous membranes Eyes: General: appearance normal, both eyes and all related structures Sclera: sclerae normal Neck: Neck: supple Resp: Effort & Inspection: normal respiratory effort Auscultation: clear to auscultation bilaterally Cardio: Rate: regular rate Rhythm: regular rhythm GI: GI Palp: Yes Soft to palpation Auscultation: normal bowel sounds Urinary Catheter: Urinary Catheter: patent and draining and urine cloudy Skin: Other: Left great toe with healing nailbed from nail removal. Right great toe with healing nailbed from nail removal with scant drainage noted and erythema noted. Neuro: Speech: normal speech Motor exam (neuro): 5/5 motor strength present throughout Sensory Exam: normal sensation Extrem: Other: chronic lymphedema BLE, RLE more edematous from foot to thigh, with erythema and warmth from foot to knee with some erythema extending to thigh area. RLE with some open areas and weeping noted. H&P: Results Labs Labs: Short CBC 06/10/25 Range/Units 05:02 WBC 12.4 H (4.5-10.0) K/mm3 Hgb 13.1 L (14.0-18.0) g/dL Hct 41.1 L (42.0-52.0) % Plt Count 1061 H (150-375) k/mm3 BMP 06/10/25 05:02 Sodium 136 L Potassium 3.4 Chloride 99 Carbon Dioxide 31 H BUN 24 H Creatinine 1.35 H Glucose 94 Calcium 8.8 Liver Function 06/10/25 Range/Units 05:02 Total Bilirubin 1.2 (0.2-1.3) mg/dL AST 74 H (17-59) U/L ALT 75 H (6-50) U/L Alkaline Phosphatase 120 (38-126) U/L Albumin 3.2 L (3.5-5.1) g/dL Urine 06/10/25 Range/Units 05:43 Urine Color Yellow (Yellow) Urine Appearance Cloudy H (Clear) Urine pH 5.5 (5.0-9.0) Ur Specific [place] 1.016 (1.001-1.035) Urine Protein 1+ H (Negative) mg/dL Urine Glucose (UA) Negative (Negative) mg/dL Assessment and Plan Assessment and plan (1) Cellulitis: Qualifiers: Laterality: right Site of cellulitis: extremity Site of cellulitis of extremity: lower extremity Qualified Code(s): L03.115 - Cellulitis of right lower limb Code(s): L03.90 - Cellulitis, unspecified Status: Acute Assessment and Plan: patient failed outpatient antibiotic treatment with Bactrim IV vancomycin IV ceftriaxone wbc 12.4 wound nurse consult for open areas and weeping pain control AM labs (2) Acute on chronic urinary retention: Code(s): R33.9 - Retention of urine, unspecified Status: Acute Assessment and Plan: patient had a grubbs catheter placed on 06/03 due to urinary retention while in the ER when patient presented 06/09 there was noted purulent drainage at the meatus and grubbs catheter was not draining grubbs catheter changed in ER start patient on tamsulosin consult urology f/u urine cultures (3) LORE (acute kidney injury): Code(s): N17.9 - Acute kidney failure, unspecified Status: Acute Assessment and Plan: BUN 24, Cr 1.35 IV fluids x 24 hours AM labs (4) Acute cystitis with hematuria: Code(s): N30.01 - Acute cystitis with hematuria Status: Acute Assessment and Plan: UA with 2+ leukocyte esterase, >100 RBC 6-10 WBC f/u urine cultures f/u cultures from ureteral meatus IV ceftriaxone AM labs (5) A-fib: Qualifiers: Atrial fibrillation type: unspecified Qualified Code(s): I48.91 - Unspecified atrial fibrillation Code(s): I48.91 - Unspecified atrial fibrillation Status: Acute Assessment and Plan: continue Pradaxa for anticoagulation continue metoprolol for rate control (6) CHF (congestive heart failure): Code(s): I50.9 - Heart failure, unspecified Status: Acute Assessment and Plan: Hold patients home furosemide due to LORE restart once kidney function returns to normal (7) Chronic obstructive pulmonary disease, unspecified: Code(s): J44.9 - Chronic obstructive pulmonary disease, unspecified Status: Acute Assessment and Plan: no signs of exacerbation no home medications currently (8) BPH (benign prostatic hyperplasia): Code(s): N40.0 - Benign prostatic hyperplasia without lower urinary tract symptoms Status: Acute Assessment and Plan: start tamsulosin urology consult Quality VTE Prophylaxis VTE prophylaxis: pharmacologic ordered
--- NOTE | 2025-06-10 07:37 | ADMGEN ---
This patient, Candido Gonzalez, was admitted to Medical Room 247-. Patient/family oriented to hospital policies and general routines including ID bracelet, bed and alarms, visiting hours, pain management, procedures, bathroom and other care routines, personal items, smoking policy, room service/diet, and visiting hours. Information on how to activate the Rapid Response Team has been discussed. Patient/Family are encouraged to report perceived risks to care and to ask questions if they do not understand what they are told or what they should do.
[2025-06-10] MEDS: ENOXAPARIN 40 MG/0.4 ML SYRINGE SUB-Q (08:03)
[2025-06-10] MEDS: SODIUM CHLORIDE 0.9% IV 1,000 ML 100 ML IV CONT ×2 (08:03→20:38)
[2025-06-10] MEDS: VANCOMYCIN 1,500 MG/NS 500 ML 1,500 MG/500 ML BAG 250 MG IVPB (08:03)
--- NOTE | 2025-06-10 09:58 | WPDURCON ---
Assessment and Plan Assessment and plan (1) Urinary retention: Code(s): R33.9 - Retention of urine, unspecified Status: Acute Assessment and Plan: - Likely secondary to BPH and noncompliance with BPH medications. He is status post GreenLight laser and meatal dilation in 2021. - maintain Beltrán catheter - Urine culture pending. Culture driven antibiotics per primary service. - ensure the catheter is secured to the leg with a StatLock with slack in the catheter and it does not pull tight. - restart finasteride and tamsulosin daily and should be discharged on this medication . Re-educate patient on medication compliance. This will give him the best possibility of passing a voiding trial after 2 weeks. 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 No plans for intervention at this time. (4) Bilateral hydrocele: Code(s): N43.3 - Hydrocele, unspecified Status: Acute Assessment and Plan: - This was previously addressed in October of 2023. At that time considering the risks, benefits, and alternatives and given his age and comorbid medical conditions, it is most appropriate to hold off on intervention at this time. (5) BPH (benign prostatic hyperplasia): Code(s): N40.0 - Benign prostatic hyperplasia without lower urinary tract symptoms Status: Acute Assessment and Plan: - restart finasteride and tamsulosin. This should be continued at discharge. Urology Consult Note HPI Date Seen: 06/10/25 Requesting Physician: Dottie Ruiz DO Primary Care Provider: Hunter Astorga MD Consult Narrative Narrative: This is an 79-year-old male with history of COPD, lymphedema, CHF, hypertension, hyperlipidemia who presents to the ED via EMS for multiple complaints. Patient states that he had ingrown toenails removed last week. He has had increasing pain to the right lower extremity spreading up his leg with some redness. Denies fevers, chills. He also states that last week he had a Beltrán catheter placed and it was working decently well until yesterday when it stopped draining. He has been having suprapubic pain since then. Notable lab findings: Leukocytosis at 12.4, improved from 15.1 last week. Mildly elevated creatinine at 1.35, up from 1.15. UA showed no evidence of UTI. Beltrán catheter was removed and replaced without significant difficulty and had immediate return of 800 cc of urine. Review of Systems Review of Systems: per [facility] Past Medical History Medical History BPH (benign prostatic hyperplasia) Sleep apnea Chronic atrial fibrillation CHF (congestive heart failure) Diastolic dysfunction Lymphedema of both lower extremities Chronic obstructive pulmonary disease, unspecified Essential (primary) hypertension Family History Family History Father Patient's father is Carcinoma of colon Mother Heart disease Grandparent Cerebrovascular accident Social History Social History Smoking status: Never smoker Alcohol intake: never Substance use: never Substance use type: does not use Lack of Transportation: No Lack of Food: Never True Current Housing: I Have Housing Concerned About Future Housing: No Difficulty Paying Gas/Electric Bills: No Difficulty Paying for Meds: No Currently Unemployed: No Education: High School Diploma/GED Difficulty w/ Childcare or Family Care: No Living arrangements: with family Spiritual care concerns: No Meds Home Medications and Allergies Home Medications ?Medication ?Instructions ?Recorded ?Confirmed ?Type atorvastatin 40 mg tablet 40 mg PO DAILY 08/04/19 06/10/25 History dabigatran etexilate 150 mg 150 mg PO BID 08/04/19 06/10/25 History capsule (Pradaxa) metoprolol succinate 50 mg 150 mg PO DAILY 02/06/23 06/10/25 History tablet,extended release 24 hr (Toprol XL) furosemide 40 mg tablet 60 mg (1.5 x 40 mg) PO DAILY #135 10/21/24 06/10/25 Rx tabs potassium chloride 10 mEq 10 meq PO BID #180 tabs 04/14/25 06/10/25 Rx tablet,extended release (Klor-Con) Allergies Allergy/AdvReac Type Severity Reaction Status Date / Time dutasteride Allergy Unknown Unknown Verified 06/10/25 08:56 finasteride Allergy Unknown Unknown Verified 06/10/25 08:56 Penicillins Allergy Unknown Unknown Verified 06/10/25 08:56 Vital Signs Vital Signs - 24 hr 06/10/25 04:09 06/10/25 04:09 06/10/25 04:10 Temperature 98.5 F Pulse Rate 100 Respiratory Rate 18 Blood Pressure 131/72 131/72 Pulse Oximetry 100 99 100 06/10/25 04:15 06/10/25 04:16 06/10/25 04:30 Temperature Pulse Rate Respiratory Rate Blood Pressure 139/65 Pulse Oximetry 100 100 99 06/10/25 04:31 06/10/25 04:45 06/10/25 04:46 Temperature Pulse Rate Respiratory Rate Blood Pressure 114/71 124/72 Pulse Oximetry 100 99 06/10/25 05:00 06/10/25 05:01 06/10/25 05:15 Temperature Pulse Rate 93 Respiratory Rate 21 H Blood Pressure 115/41 L Pulse Oximetry 100 97 100 06/10/25 05:16 06/10/25 05:30 06/10/25 05:31 Temperature Pulse Rate 88 105 H 95 Respiratory Rate 24 H 18 21 H Blood Pressure 132/86 117/61 Pulse Oximetry 100 100 100 06/10/25 05:45 06/10/25 05:47 06/10/25 06:00 Temperature Pulse Rate 89 95 86 Respiratory Rate 26 H 26 H 17 Blood Pressure 110/58 L Pulse Oximetry 98 99 100 06/10/25 06:01 06/10/25 06:15 06/10/25 06:16 Temperature Pulse Rate 90 85 85 Respiratory Rate 17 21 H 17 Blood Pressure 110/64 111/60 Pulse Oximetry 98 99 97 06/10/25 06:31 Temperature Pulse Rate 91 Respiratory Rate 30 H Blood Pressure 107/66 Pulse Oximetry 100 Exam Const: General: comfortable and no acute distress Eyes: General: appearance normal, both eyes and all related structures Resp: Effort & Inspection: normal respiratory effort : Other: Lesions on the glans noted. The glans of the penis is adhesed to the scrotal skin. Urinary Catheter: Urinary Catheter: urine dark and urine red Skin: General skin exam: normal color Neuro: Speech: normal speech Results Labs 06/10/25 05:02 06/10/25 05:02 Labs: Short CBC 06/10/25 Range/Units 05:02 WBC 12.4 H (4.5-10.0) K/mm3 Hgb 13.1 L (14.0-18.0) g/dL Hct 41.1 L (42.0-52.0) % Plt Count 1061 H (150-375) k/mm3 BMP 06/10/25 05:02 Sodium 136 L Potassium 3.4 Chloride 99 Carbon Dioxide 31 H BUN 24 H Creatinine 1.35 H Glucose 94 Calcium 8.8 Liver Function 06/10/25 Range/Units 05:02 Total Bilirubin 1.2 (0.2-1.3) mg/dL AST 74 H (17-59) U/L ALT 75 H (6-50) U/L Alkaline Phosphatase 120 (38-126) U/L Albumin 3.2 L (3.5-5.1) g/dL Urine 06/10/25 Range/Units 05:43 Urine Color Yellow (Yellow) Urine Appearance Cloudy H (Clear) Urine pH 5.5 (5.0-9.0) Ur Specific [place] 1.016 (1.001-1.035) Urine Protein 1+ H (Negative) mg/dL Urine Glucose (UA) Negative (Negative) mg/dL
[2025-06-10] MEDS: METOPROLOL SUCCINATE EXT REL 50 MG TABCR 150 MG PO (10:06)
[2025-06-10] MEDS: ATORVASTATIN 40 MG TABLET PO (10:06)
[2025-06-10] MEDS: TAMSULOSIN HCL 0.4 MG CAPSULE PO (10:07)
[2025-06-10] MEDS: POTASSIUM CHLORIDE 10 MEQ ER TABLET PO ×2 (10:07→17:34)
[2025-06-10] MEDS: DABIGATRAN ETEXILATE 150 MG CAPSULE PO (17:34)
[2025-06-11 04:52] LABS: Hematocrit 40.7 % (42.0-52.0); Hemoglobin 12.5 g/dL (14.0-18.0); Immature Granulocyte Percent A 1.1 % (0-0.5); Lymphocytes Absolute Auto 0.98 K/mm3 (0.9-3.2); Mean Corpuscular HGB Conc 30.7 g/dl (32-36); Mean Corpuscular Hemoglobin 29.6 pg (26-34); Mean Corpuscular Volume 96.2 fl (80-100); Nucleated Red Blood Cells Absolute Auto 0.000 K/mm3 (0.0-0.012); Nucleated Red Blood Cells Perc 0.0 % (0.0-0.2); Platelet Count Result 902 k/mm3 (150-375); Red Blood Count 4.23 M/mm3 (4.6-6.20); White Blood Count 9.7 K/mm3 (4.5-10.0)
[2025-06-11] MEDS: cefTRIAXone 2 GM in SODIUM CHLORIDE 0.9% IV 100 ML 200 ML IVPB (05:03)
[2025-06-11] MEDS: SODIUM CHLORIDE 0.9% IV 1,000 ML 100 ML IV CONT (05:03)
[2025-06-11 05:12] LABS: Alanine Aminotransferase 72 U/L (6-50); Albumin Level 2.8 g/dL (3.5-5.1); Alkaline Phosphatase 101 U/L (38-126); Anion Gap 6 mmol/L (4-12); Aspartate Amino Transferase 76 U/L (17-59); Bilirubin,Total 0.6 mg/dL (0.2-1.3); Blood Urea Nitrogen 22 mg/dL (9-20); Calcium 8.5 mg/dL (8.4-10.2); Carbon Dioxide 26 mmol/L (22-30); Chloride 105 mmol/L (98-107); Estimated CRCL calculation 59 ml/min; Estimated Glomerular Filt Rate 58; Glucose 96 mg/dL (65-110); Potassium 4.2 mmol/L (3.4-5.0); Sodium 137 mmol/L (137-145); Total Protein 5.7 g/dL (6.3-8.2)
[2025-06-11 06:00] VITALS: BP 134/61; PULSE 79; RESP 18; TEMP 36.5; O2SAT 98
--- NOTE | 2025-06-11 07:03 | PM.IMPN ---
Progress Note: A&P Assessment and Plan (1) Cellulitis: Qualifiers: Laterality: right Site of cellulitis: extremity Site of cellulitis of extremity: lower extremity Qualified Code(s): L03.115 - Cellulitis of right lower limb Code(s): L03.90 - Cellulitis, unspecified Status: Acute Assessment and Plan: patient failed outpatient antibiotic treatment with Bactrim continue IV vancomycin continue IV ceftriaxone wbc 12.4 on admission, today 9.4 wound nurse consult for open areas and weeping pain control some improvement in erythema, warmth and edema noted on exam today AM labs (2) Acute on chronic urinary retention: Code(s): R33.9 - Retention of urine, unspecified Status: Acute Assessment and Plan: patient had a grubbs catheter placed on 06/03 due to urinary retention while in the ER when patient presented 06/09 there was noted purulent drainage at the meatus and grubbs catheter was not draining grubbs catheter changed in ER patient started on tamsulosin this admission consult urology, recs appreciated f/u urine cultures patient will be discharged with grubbs catheter in place and will f/u with urology 2 weeks after discharge for a voiding trial (3) LOER (acute kidney injury): Code(s): N17.9 - Acute kidney failure, unspecified Status: Acute Assessment and Plan: BUN 24, Cr 1.35 s/p IV fluids x 24 hours improved, BUN 22, Cr 1.21 AM labs (4) Acute cystitis with hematuria: Code(s): N30.01 - Acute cystitis with hematuria Status: Acute Assessment and Plan: UA with 2+ leukocyte esterase, >100 RBC 6-10 WBC f/u urine cultures f/u cultures from ureteral meatus continue IV ceftriaxone AM labs (5) A-fib: Qualifiers: Atrial fibrillation type: unspecified Qualified Code(s): I48.91 - Unspecified atrial fibrillation Code(s): I48.91 - Unspecified atrial fibrillation Status: Acute Assessment and Plan: continue Pradaxa for anticoagulation continue metoprolol for rate control (6) CHF (congestive heart failure): Code(s): I50.9 - Heart failure, unspecified Status: Acute Assessment and Plan: Hold patients home furosemide due to LORE restart furosemide (7) Chronic obstructive pulmonary disease, unspecified: Code(s): J44.9 - Chronic obstructive pulmonary disease, unspecified Status: Acute Assessment and Plan: no signs of exacerbation no home medications currently (8) BPH (benign prostatic hyperplasia): Code(s): N40.0 - Benign prostatic hyperplasia without lower urinary tract symptoms Status: Acute Assessment and Plan: started on tamsulosin this admission urology consult appreciated Subjective Date/time seen: 06/11/25 07:03 Interval history: Patient seen for a follow up visit. Patient lying in bed, in no acute distress. Patient continues on IV vancomycin and IV ceftriaxone. Grubbs catheter remains in place and patient will discharge with this in place and follow up outpatient with urology for a void trial. Urine culture is pending. Patient's edema, erythema and warmth are improving to the right lower extremity. Patient reported diarrhea on admission but has not had a bowel movement since admission, c-diff PCR ordered if patient does have diarrhea. Patient's BUN 22 and creatinine 1.21 today. IV fluids will stop this morning. PT/OT consult will be placed. Review of Systems Review of Systems: All systems reviewed & are unremarkable except as noted in HPI and below Exam Const: General: comfortable and no acute distress HENMT: Face/Nose/Sinus: Normal nares present Mouth: Yes moist mucous membranes Eyes: General: appearance normal, both eyes and all related structures Sclera: sclerae normal Neck: Neck: supple Resp: Effort & Inspection: normal respiratory effort Auscultation: clear to auscultation bilaterally Cardio: Rate: regular rate Rhythm: regular rhythm GI: Auscultation: normal bowel sounds Urinary Catheter: Urinary Catheter: patent and draining and urine cloudy Skin: Other: Left great toe with healing nailbed from nail removal. Right great toe with healing nailbed from nail removal with scant drainage noted and erythema noted. Neuro: Speech: normal speech Motor exam (neuro): 5/5 motor strength present throughout Sensory Exam: normal sensation Extrem: Other: chronic lymphedema BLE, RLE more edematous from foot to thigh, with erythema and warmth from foot to knee with some erythema extending to thigh area. RLE with some open areas and weeping noted. Objective Data Vital Signs Vital Signs: Vital Signs - 24 hr 06/10/25 08:00 06/10/25 10:05 06/10/25 10:06 Temperature 97.1 F L Pulse Rate 68 91 Respiratory Rate 18 Blood Pressure 113/54 L Pulse Oximetry 98 Oxygen Delivery Room Air 06/10/25 13:51 06/10/25 20:38 06/10/25 22:00 Temperature 97.1 F L 97.8 F Pulse Rate 86 98 Respiratory Rate 18 18 Blood Pressure 112/51 L 127/62 Pulse Oximetry 98 95 Oxygen Delivery Room Air 06/11/25 06:00 Temperature 97.7 F Pulse Rate 79 Respiratory Rate 18 Blood Pressure 134/61 Pulse Oximetry 98 Oxygen Delivery Intake/Output Intake/Output: Intake & Output 06/08/25 06/09/25 06/10/25 06/11/25 23:59 23:59 23:59 23:59 Intake Total 3060 941.7 Output Total 350 600 Balance 2710 341.7 Meds/Results Medications: Active Medications Generic Name Dose Route Start Last Admin Trade Name Freq PRN Reason Stop Dose Admin Acetaminophen 650 mg 06/10/25 07:32 Acetaminophen 325 Mg Tablet PO Q4H PRN Mild Pain (1-3) or Fever Atorvastatin Calcium 40 mg 06/10/25 09:00 06/10/25 10:06 Atorvastatin 40 Mg Tablet PO 40 mg DAILY SUHA Administration Bisacodyl 5 mg 06/10/25 07:32 Bisacodyl 5 Mg Tablet Ec PO DAILY PRN Constipation Dabigatran 150 mg 06/10/25 17:00 06/10/25 17:34 Dabigatran Etexilate 150 Mg Capsule PO 150 mg BID SUHA Administration Vancomycin HCl 1,500 mg in 500 mls @ 250 mls/hr 06/10/25 08:00 06/10/25 08:03 Vancomycin 1,500 Mg/Ns 500 Ml IVPB 250 mls/hr Q24H SUHA Administration Sodium Chloride 1,000 mls @ 100 mls/hr 06/10/25 07:35 06/11/25 05:03 Normal Saline Iv IV CONT 06/11/25 07:34 100 mls/hr .Q10H SUHA Administration Ceftriaxone Sodium 2 gm/ 100 mls @ 200 mls/hr 06/11/25 06:00 06/11/25 05:33 Sodium Chloride IVPB Infused Q24H SUHA Infusion Metoprolol Succinate 150 mg 06/10/25 09:00 06/10/25 10:06 Metoprolol Succinate Ext Rel 50 Mg Tabcr PO 150 mg DAILY SUHA Administration Ondansetron HCl 4 mg 06/10/25 07:32 Ondansetron Inj 4 Mg/2 Ml Vial IV PUSH Q6H PRN Nausea And Vomiting Potassium Chloride 10 meq 06/10/25 09:00 06/10/25 17:34 Potassium Chloride 10 Meq Er Tablet PO 10 meq BID SUHA Administration Tamsulosin HCl 0.4 mg 06/10/25 09:25 06/10/25 10:07 Tamsulosin Hcl 0.4 Mg Capsule PO 0.4 mg QAM SUHA Administration Labs Labs: Laboratory Results - last 24 hr 06/11/25 04:24 WBC 9.7 RBC 4.23 L Hgb 12.5 L Hct 40.7 L MCV 96.2 MCH 29.6 MCHC 30.7 L RDW 15.9 H Plt Count 902 H MPV 8.9 Immature Gran % (Auto) 1.1 H Neut % (Auto) 73.7 H Lymph % (Auto) 10.1 L [place] % (Auto) 10.6 H Eos % (Auto) 3.4 Baso % (Auto) 1.1 Lymph # (Auto) 0.98 [place] # (Auto) 1.0 H Eos # (Auto) 0.3 Baso # (Auto) 0.1 Abs Immat Gran (auto) 0.11 H Absolute Neuts (auto) 7.1 H Absolute Nucleated RBC 0.000 Nucleated RBC % 0.0 Sodium 137 Potassium 4.2 Chloride 105 Carbon Dioxide 26 Anion Gap 6 BUN 22 H Creatinine 1.21 Estim Creat Clear Calc 59 Estimated GFR 58 L Glucose 96 Calcium 8.5 Total Bilirubin 0.6 AST 76 H ALT 72 H Alkaline Phosphatase 101 Total Protein 5.7 L Albumin 2.8 L Quality VTE Prophylaxis VTE prophylaxis: pharmacologic ordered
[2025-06-11] MEDS: VANCOMYCIN 1,500 MG/NS 500 ML 1,500 MG/500 ML BAG 250 MG IVPB (09:07)
[2025-06-11] MEDS: DABIGATRAN ETEXILATE 150 MG CAPSULE PO (09:07)
[2025-06-11 09:08] VITALS: PULSE 79
[2025-06-11] MEDS: TAMSULOSIN HCL 0.4 MG CAPSULE PO (09:08)
[2025-06-11] MEDS: ATORVASTATIN 40 MG TABLET PO (09:08)
[2025-06-11] MEDS: POTASSIUM CHLORIDE 10 MEQ ER TABLET PO ×2 (09:08→16:57)
[2025-06-11] MEDS: METOPROLOL SUCCINATE EXT REL 50 MG TABCR 150 MG PO (09:08)
[2025-06-11 14:00] VITALS: BP 130/55; PULSE 103; RESP 18; TEMP 36.9; O2SAT 94
[2025-06-11 20:27] LABS: Hematocrit 40.5 % (42.0-52.0); Hemoglobin 12.6 g/dL (14.0-18.0); Mean Corpuscular HGB Conc 31.1 g/dl (32-36); Mean Corpuscular Hemoglobin 29.4 pg (26-34); Mean Corpuscular Volume 94.6 fl (80-100); Platelet Count Result 983 k/mm3 (150-375); Red Blood Count 4.28 M/mm3 (4.6-6.20); White Blood Count 10.5 K/mm3 (4.5-10.0)
[2025-06-11 21:15] VITALS: PULSE 73; O2SAT 100
[2025-06-11] MEDS: MELATONIN 5 MG TABLET PO (21:56)
[2025-06-11 22:00] VITALS: BP 142/71; PULSE 73; RESP 18; TEMP 36.5; O2SAT 100
[2025-06-12] VITALS (7 sets, daily range): BP systolic 97–124; BP diastolic 48–70; PULSE 65–105; RESP 16–18; TEMP 36.5–36.7; O2SAT 94–100
[2025-06-12 05:19] LABS: Hematocrit 36.8 % (42.0-52.0); Hemoglobin 11.4 g/dL (14.0-18.0); Immature Granulocyte Percent A 0.9 % (0-0.5); Lymphocytes Absolute Auto 1.19 K/mm3 (0.9-3.2); Mean Corpuscular HGB Conc 31.0 g/dl (32-36); Mean Corpuscular Hemoglobin 29.7 pg (26-34); Mean Corpuscular Volume 95.8 fl (80-100); Nucleated Red Blood Cells Absolute Auto 0.000 K/mm3 (0.0-0.012); Nucleated Red Blood Cells Perc 0.0 % (0.0-0.2); Platelet Count Result 813 k/mm3 (150-375); Red Blood Count 3.84 M/mm3 (4.6-6.20); White Blood Count 9.7 K/mm3 (4.5-10.0)
[2025-06-12 05:32] LABS: Alanine Aminotransferase 69 U/L (6-50); Albumin Level 2.5 g/dL (3.5-5.1); Alkaline Phosphatase 90 U/L (38-126); Anion Gap 1 mmol/L (4-12); Aspartate Amino Transferase 77 U/L (17-59); Bilirubin,Total 0.5 mg/dL (0.2-1.3); Blood Urea Nitrogen 19 mg/dL (9-20); Calcium 8.6 mg/dL (8.4-10.2); Carbon Dioxide 29 mmol/L (22-30); Chloride 107 mmol/L (98-107); Estimated CRCL calculation 64 ml/min; Estimated Glomerular Filt Rate > 60; Glucose 95 mg/dL (65-110); Potassium 4.4 mmol/L (3.4-5.0); Sodium 137 mmol/L (137-145); Total Protein 5.3 g/dL (6.3-8.2)
[2025-06-12] MEDS: cefTRIAXone 2 GM in SODIUM CHLORIDE 0.9% IV 100 ML 200 ML IVPB (05:58)
[2025-06-12] MEDS: ATORVASTATIN 40 MG TABLET PO (09:03)
[2025-06-12] MEDS: POTASSIUM CHLORIDE 10 MEQ ER TABLET PO ×2 (09:03→17:47)
[2025-06-12] MEDS: FUROSEMIDE 20 MG TABLET 60 MG PO (09:03)
[2025-06-12] MEDS: METOPROLOL SUCCINATE EXT REL 50 MG TABCR 150 MG PO (09:03)
[2025-06-12] MEDS: VANCOMYCIN 1,500 MG/NS 500 ML 1,500 MG/500 ML BAG 250 MG IVPB (09:03)
[2025-06-12] MEDS: TAMSULOSIN HCL 0.4 MG CAPSULE PO (09:03)
--- NOTE | 2025-06-12 12:33 | P.PNIM_ITS ---
Progress Note: A&P Assessment and Plan (1) Cellulitis: Qualifiers: Laterality: right Site of cellulitis: extremity Site of cellulitis of extremity: lower extremity Qualified Code(s): L03.115 - Cellulitis of right lower limb Code(s): L03.90 - Cellulitis, unspecified Status: Acute Assessment and Plan: Switched to p.o. antibiotics today. wbc 12.4 on admission, today 9.4 wound nurse consult for open areas and weeping pain control some improvement in erythema, warmth and edema noted on exam today AM labs (2) Acute on chronic urinary retention: Code(s): R33.9 - Retention of urine, unspecified Status: Acute Assessment and Plan: patient had a grubbs catheter placed on 06/03 due to urinary retention while in the ER when patient presented 06/09 there was noted purulent drainage at the meatus and grubbs catheter was not draining grubbs catheter changed in ER patient started on tamsulosin this admission consult urology, recs appreciated f/u urine cultures patient will be discharged with grubbs catheter in place and will f/u with urology 2 weeks after discharge for a voiding trial (3) LORE (acute kidney injury): Code(s): N17.9 - Acute kidney failure, unspecified Status: Acute Assessment and Plan: BUN 24, Cr 1.35 s/p IV fluids x 24 hours improved, BUN 22, Cr 1.21 AM labs (4) Acute cystitis with hematuria: Code(s): N30.01 - Acute cystitis with hematuria Status: Acute Assessment and Plan: UA with 2+ leukocyte esterase, >100 RBC 6-10 WBC f/u urine cultures f/u cultures from ureteral meatus continue IV ceftriaxone AM labs (5) A-fib: Qualifiers: Atrial fibrillation type: unspecified Qualified Code(s): I48.91 - Unspecified atrial fibrillation Code(s): I48.91 - Unspecified atrial fibrillation Status: Acute Assessment and Plan: continue Pradaxa for anticoagulation continue metoprolol for rate control (6) CHF (congestive heart failure): Code(s): I50.9 - Heart failure, unspecified Status: Acute Assessment and Plan: Stable on current medications, will continue current treatment. (7) Chronic obstructive pulmonary disease, unspecified: Code(s): J44.9 - Chronic obstructive pulmonary disease, unspecified Status: Acute Assessment and Plan: no signs of exacerbation no home medications currently (8) BPH (benign prostatic hyperplasia): Code(s): N40.0 - Benign prostatic hyperplasia without lower urinary tract symptoms Status: Acute Assessment and Plan: started on tamsulosin this admission urology consult appreciated Subjective Date/time seen: 06/12/25 12:33 Interval history: Patient was seen during the morning rounds today. Feeling slightly better. No shortness of breath or chest pain. Review of Systems Review of Systems: All systems reviewed & are unremarkable except as noted in HPI and below Exam Const: General: comfortable and no acute distress HENMT: Face/Nose/Sinus: Normal nares present Mouth: Yes moist mucous membranes Eyes: General: appearance normal, both eyes and all related structures Sclera: sclerae normal Neck: Neck: supple Resp: Effort & Inspection: normal respiratory effort Auscultation: clear to auscultation bilaterally Cardio: Rate: regular rate Rhythm: regular rhythm GI: Auscultation: normal bowel sounds Urinary Catheter: Urinary Catheter: patent and draining and urine cloudy Skin: Other: Left great toe with healing nailbed from nail removal. Right great toe with healing nailbed from nail removal with scant drainage noted and erythema noted. Neuro: Speech: normal speech Motor exam (neuro): 5/5 motor strength present throughout Sensory Exam: normal sensation Extrem: Other: chronic lymphedema BLE, RLE more edematous from foot to thigh, with erythema and warmth from foot to knee with some erythema extending to thigh area. RLE with some open areas and weeping noted. Objective Data Vital Signs Vital Signs: Vital Signs - 24 hr 06/11/25 14:00 06/11/25 20:41 06/11/25 21:15 Temperature 36.9 C Pulse Rate 103 H 73 Respiratory Rate 18 Blood Pressure 130/55 L Pulse Oximetry 94 100 Oxygen Delivery Room Air Room Air Fraction of Inspired Oxygen 21 06/11/25 22:00 06/12/25 06:00 06/12/25 06:23 Temperature 36.5 C 36.7 C 36.6 C Pulse Rate 73 77 65 Respiratory Rate 18 18 18 Blood Pressure 142/71 H 117/52 L 97/70 L Pulse Oximetry 100 94 94 Oxygen Delivery Fraction of Inspired Oxygen 06/12/25 07:49 06/12/25 08:55 06/12/25 09:01 Temperature Pulse Rate 94 Respiratory Rate 16 Blood Pressure 122/70 Pulse Oximetry 100 Oxygen Delivery Room Air Room Air Fraction of Inspired Oxygen 06/12/25 09:03 Temperature Pulse Rate 105 H Respiratory Rate Blood Pressure Pulse Oximetry Oxygen Delivery Fraction of Inspired Oxygen Intake/Output Intake/Output: Intake & Output 06/09/25 06/10/25 06/11/25 06/12/25 23:59 23:59 23:59 23:59 Intake Total 3560 2961.7 440 Output Total 350 600 450 Balance 3210 2361.7 -10 Meds/Results Medications: Active Medications Generic Name Dose Route Start Last Admin Trade Name Freq PRN Reason Stop Dose Admin Acetaminophen 650 mg 06/10/25 07:32 Acetaminophen 325 Mg Tablet PO Q4H PRN Mild Pain (1-3) or Fever Atorvastatin Calcium 40 mg 06/10/25 09:00 06/12/25 09:03 Atorvastatin 40 Mg Tablet PO 40 mg DAILY SUHA Administration Bisacodyl 5 mg 06/10/25 07:32 Bisacodyl 5 Mg Tablet Ec PO DAILY PRN Constipation Cefpodoxime Proxetil 200 mg 06/13/25 09:00 Cefpodoxime Proxetil 200 Mg Tablet PO 06/19/25 21:01 Q12HR SUHA Dabigatran 150 mg 06/10/25 17:00 06/11/25 09:07 Dabigatran Etexilate 150 Mg Capsule PO 150 mg On Hold: 06/11/25 16:38 BID SUHA Administration Doxycycline Hyclate 100 mg 06/13/25 09:00 Doxycycline Hyclate 100 Mg Tablet PO 06/19/25 21:01 Q12HR SUAH Furosemide 60 mg 06/12/25 09:00 06/12/25 09:03 Furosemide 20 Mg Tablet PO 60 mg DAILY SUHA Administration Melatonin 5 mg 06/11/25 21:00 06/11/25 21:56 Melatonin 5 Mg Tablet PO 5 mg HS SUHA Administration Metoprolol Succinate 150 mg 06/10/25 09:00 06/12/25 09:03 Metoprolol Succinate Ext Rel 50 Mg Tabcr PO 150 mg DAILY SUHA Administration Ondansetron HCl 4 mg 06/10/25 07:32 Ondansetron Inj 4 Mg/2 Ml Vial IV PUSH Q6H PRN Nausea And Vomiting Potassium Chloride 10 meq 06/10/25 09:00 06/12/25 09:03 Potassium Chloride 10 Meq Er Tablet PO 10 meq BID SHUA Administration Tamsulosin HCl 0.4 mg 06/10/25 09:25 06/12/25 09:03 Tamsulosin Hcl 0.4 Mg Capsule PO 0.4 mg QAM SUHA Administration Labs Labs: Laboratory Results - last 24 hr 06/11/25 06/11/25 06/12/25 20:12 20:27 04:46 WBC 10.5 H 9.7 RBC 4.28 L 3.84 L Hgb 12.6 L 11.4 L Hct 40.5 L 36.8 L MCV 94.6 95.8 MCH 29.4 29.7 MCHC 31.1 L 31.0 L RDW 16.0 H 15.8 H Plt Count 983 H 813 H MPV 8.8 8.9 Immature Gran % (Auto) 0.9 H Neut % (Auto) 69.6 Lymph % (Auto) 12.3 L [place] % (Auto) 11.0 H Eos % (Auto) 5.3 H Baso % (Auto) 0.9 Lymph # (Auto) 1.19 [place] # (Auto) 1.1 H Eos # (Auto) 0.5 H Baso # (Auto) 0.1 Abs Immat Gran (auto) 0.09 H Absolute Neuts (auto) 6.7 Absolute Nucleated RBC 0.000 Nucleated RBC % 0.0 Sodium 137 Potassium 4.4 Chloride 107 Carbon Dioxide 29 Anion Gap 1 L BUN 19 Creatinine 1.10 Estim Creat Clear Calc 64 Estimated GFR > 60 Glucose 95 POC Capillary Glucose 149 H Calcium 8.6 Total Bilirubin 0.5 AST 77 H ALT 69 H Alkaline Phosphatase 90 Total Protein 5.3 L Albumin 2.5 L Quality VTE Prophylaxis VTE prophylaxis: pharmacologic ordered
[2025-06-12] MEDS: DABIGATRAN ETEXILATE 150 MG CAPSULE PO (17:47)
[2025-06-12] MEDS: MELATONIN 5 MG TABLET PO (20:50)
[2025-06-13 03:42] VITALS: BP 118/64; PULSE 70; RESP 20; TEMP 36.4; O2SAT 99
[2025-06-13 09:18] VITALS: PULSE 68
[2025-06-13] MEDS: ATORVASTATIN 40 MG TABLET PO (09:18)
[2025-06-13] MEDS: FUROSEMIDE 20 MG TABLET 60 MG PO (09:18)
[2025-06-13] MEDS: DABIGATRAN ETEXILATE 150 MG CAPSULE PO ×2 (09:18→17:01)
[2025-06-13] MEDS: METOPROLOL SUCCINATE EXT REL 50 MG TABCR 150 MG PO (09:18)
[2025-06-13] MEDS: TAMSULOSIN HCL 0.4 MG CAPSULE PO (09:22)
[2025-06-13] MEDS: CEFPODOXIME PROXETIL 200 MG TABLET PO ×2 (09:22→21:03)
[2025-06-13] MEDS: POTASSIUM CHLORIDE 10 MEQ ER TABLET PO ×2 (09:22→17:01)
[2025-06-13] MEDS: DOXYCYCLINE HYCLATE 100 MG TABLET PO ×2 (09:22→21:03)
--- NOTE | 2025-06-13 09:28 | PM.DS ---
DS: Admitting Diagnosis Discharge Date 06/13/2025 Admitting Diagnosis Cellulitis lower extremity DS: Discharge Diagnosis Discharge Diagnosis (1) Cellulitis: Qualifiers: Laterality: right Site of cellulitis: extremity Site of cellulitis of extremity: lower extremity Qualified Code(s): L03.115 - Cellulitis of right lower limb Code(s): L03.90 - Cellulitis, unspecified Status: Acute Assessment and Plan: Switched to p.o. antibiotics today. wbc 12.4 on admission, today 9.4 wound nurse consult for open areas and weeping pain control some improvement in erythema, warmth and edema noted on exam today AM labs (2) Acute on chronic urinary retention: Code(s): R33.9 - Retention of urine, unspecified Status: Acute Assessment and Plan: patient had a grubbs catheter placed on 06/03 due to urinary retention while in the ER when patient presented 06/09 there was noted purulent drainage at the meatus and grubbs catheter was not draining grubbs catheter changed in ER patient started on tamsulosin this admission consult urology, recs appreciated f/u urine cultures patient will be discharged with grubbs catheter in place and will f/u with urology 2 weeks after discharge for a voiding trial (3) LORE (acute kidney injury): Code(s): N17.9 - Acute kidney failure, unspecified Status: Acute Assessment and Plan: BUN 24, Cr 1.35 s/p IV fluids x 24 hours improved, BUN 22, Cr 1.21 AM labs (4) Acute cystitis with hematuria: Code(s): N30.01 - Acute cystitis with hematuria Status: Acute Assessment and Plan: UA with 2+ leukocyte esterase, >100 RBC 6-10 WBC f/u urine cultures f/u cultures from ureteral meatus continue IV ceftriaxone AM labs (5) A-fib: Qualifiers: Atrial fibrillation type: unspecified Qualified Code(s): I48.91 - Unspecified atrial fibrillation Code(s): I48.91 - Unspecified atrial fibrillation Status: Acute Assessment and Plan: continue Pradaxa for anticoagulation continue metoprolol for rate control (6) CHF (congestive heart failure): Code(s): I50.9 - Heart failure, unspecified Status: Acute Assessment and Plan: Stable on current medications, will continue current treatment. (7) Chronic obstructive pulmonary disease, unspecified: Code(s): J44.9 - Chronic obstructive pulmonary disease, unspecified Status: Acute Assessment and Plan: no signs of exacerbation no home medications currently (8) BPH (benign prostatic hyperplasia): Code(s): N40.0 - Benign prostatic hyperplasia without lower urinary tract symptoms Status: Acute Assessment and Plan: started on tamsulosin this admission urology consult appreciated DS: Summary Hospital Course Reason for hospitalization: Cellulitis lower extremity Hospital Course: 79 years old male with history of multiple medical problems admitted complained of having infection the lower extremity. Patient was given IV antibiotics. Patient also have cystitis. Grubbs catheter was placed. Urology was consulted. Today patient is feeling better. Patient was discharged home stable condition. Patient will take 2 antibiotics at home. Follow-up with Urology and primary care schedule as an outpatient. Status at Discharge Cognitive/behavioral status at discharge: Stable Time Spent with Patient Time attestation: Total time spent providing and/or coordinating discharge services: 30 minutes Exam Const: General: comfortable and no acute distress HENMT: Face/Nose/Sinus: Normal nares present Mouth: Yes moist mucous membranes Eyes: General: appearance normal, both eyes and all related structures Sclera: sclerae normal Neck: Neck: supple Resp: Effort & Inspection: normal respiratory effort Auscultation: clear to auscultation bilaterally Cardio: Rate: regular rate Rhythm: regular rhythm GI: Auscultation: normal bowel sounds Urinary Catheter: Urinary Catheter: patent and draining and urine cloudy Skin: Other: Left great toe with healing nailbed from nail removal. Right great toe with healing nailbed from nail removal with scant drainage noted and erythema noted. Neuro: Speech: normal speech Motor exam (neuro): 5/5 motor strength present throughout Sensory Exam: normal sensation Extrem: Other: chronic lymphedema BLE, RLE more edematous from foot to thigh, with erythema and warmth from foot to knee with some erythema extending to thigh area. RLE with some open areas and weeping noted. DS: Data Data Completed and Pending Labs on day of discharge: Labs from last 24 hours 06/13/25 07:45 POC Capillary Glucose 89 Preliminary micro results at discharge 06/10/25 05:02 Blood Culture - Preliminary Blood 06/10/25 05:10 Blood Culture - Preliminary Blood Discharge Plan Discharge Attending physician on discharge: Jeremiah Honeycutt Consulting providers: Callie Woodruff Discharging Clinician: Jeremiah Honeycutt Patient Disposition: Home Activity: as tolerated Diet: as tolerated Patient Instructions: Antibiotic Form, Safe Use of Anticoagulants (DC) Patient Language: Armenian Stand Alone Forms: General Discharge Information Follow-up/Referrals: Callie Woodruff MD [Physician, Urology] Hunter Astorga MD [Primary Care Provider, [facility]] Discharge Medications: New tamsulosin 0.4 mg Capsule 0.4 mg PO QAM Qty: 30 0RF cefpodoxime 200 mg Tablet 200 mg PO Q12HR 14 Days Qty: 28 0RF doxycycline hyclate 100 mg Tablet 100 mg PO Q12HR Qty: 28 0RF bisacodyl [Laxative (bisacodyl)] 5 mg Tablet,Delayed Release (Dr/Ec) 5 mg PO DAILY PRN (Reason: Constipation) Qty: 30 0RF melatonin 5 mg Tablet 5 mg PO HS Qty: 30 0RF Continued atorvastatin 40 mg tablet 40 mg PO DAILY Pradaxa 150 mg capsule 150 mg PO BID metoprolol succinate [Toprol XL] 50 mg tablet extended release 24 hr 150 mg PO DAILY furosemide 40 mg tablet 60 mg PO DAILY Qty: 135 1RF potassium chloride [Klor-Con 10] 10 mEq tablet extended release 10 meq PO BID Qty: 180 1RF Date of admission: 06/10/25 06:26 Primary Care Provider: Hunter Astorga Admitting Provider: Dottie Ruiz Attending physician on admission: Dottie Ruiz Condition: Stable Quality VTE Prophylaxis VTE prophylaxis: pharmacologic ordered
[2025-06-13] MEDS: ACETAMINOPHEN 325 MG TABLET 650 MG PO (13:24)
[2025-06-13] MEDS: BACITRACIN/POLYMYXIN B OINT 15 GM TUBE 1 APPLIC TOPICAL (13:26)
[2025-06-13] MEDS: LIDOCAINE 2% JELLY 5 ML TUBE 1 APPLIC MUCOUS MEM (13:26)
[2025-06-13 14:00] VITALS: BP 119/65; PULSE 78; RESP 18; TEMP 36.6; O2SAT 96
--- NOTE | 2025-06-13 19:30 | PC.NURSE ---
1500 Pt discharge printed & reviewed. Pt grubbs catheter leaking & hurting. Dr Zamora notified. He ordered lidocaine gel & topical abx ointment for his penis. Pt's arrived & was very anxious & said he has to go to rehab. I can't take care of him like this. I attempted to explain that I was going to try to adjust the grubbs catheter & get it to stop leaking by changing it & applying some medications so that he won't be in pain & the catheter won't be a problem. But, they were not open to education or listening at all. So, I called the nurse healthcare manager & let her know that they want her to look for a rehab bed. 184 Pt called me to his room to ask me why I was sending him to rehab. I explained that I only called the nurse healthcare manager after his came to tell me that she couldn't take care of him at home & that I heard them discussing this in the room earlier. I told him that we can't send him home tonight since she is gone & he can discuss this with his again tomorrow & we can reassess everything in the morning.
[2025-06-13 20:00] VITALS: PULSE 79; RESP 20; O2SAT 99
[2025-06-13 20:29] VITALS: BP 108/64; PULSE 79; RESP 20; TEMP 36.4; O2SAT 99
[2025-06-13] MEDS: MELATONIN 5 MG TABLET PO (21:02)
--- NOTE | 2025-06-14 02:00 | PC.NURSE ---
Daylight Savings Time For Daylight Savings Time Ending in the Fall - Clocks are moved back. For Daylight Savings Time Beginning in the Spring - Clocks are moved ahead. For [facility], the time of change occurs at 0200 hrs. Time is taken from the server support technician. This entry on the patient's chart recognizes the change in time reflected during documentation. Example: 2 entries for vital signs may be charted for 0200 hrs.
[2025-06-14 05:15] VITALS: BP 124/63; PULSE 72; RESP 18; TEMP 36.7; O2SAT 98
[2025-06-14] MEDS: DABIGATRAN ETEXILATE 150 MG CAPSULE PO ×2 (08:31→17:40)
[2025-06-14] MEDS: DOXYCYCLINE HYCLATE 100 MG TABLET PO ×2 (08:31→21:14)
[2025-06-14] MEDS: CEFPODOXIME PROXETIL 200 MG TABLET PO ×2 (08:31→21:14)
[2025-06-14] MEDS: FUROSEMIDE 20 MG TABLET 60 MG PO (08:31)
[2025-06-14] MEDS: BACITRACIN/POLYMYXIN B OINT 15 GM TUBE 1 APPLIC TOPICAL (08:31)
[2025-06-14] MEDS: ATORVASTATIN 40 MG TABLET PO (08:31)
[2025-06-14 08:32] VITALS: PULSE 72
[2025-06-14] MEDS: POTASSIUM CHLORIDE 10 MEQ ER TABLET PO ×2 (08:32→17:40)
[2025-06-14] MEDS: METOPROLOL SUCCINATE EXT REL 50 MG TABCR 150 MG PO (08:32)
[2025-06-14] MEDS: TAMSULOSIN HCL 0.4 MG CAPSULE PO (08:32)
--- NOTE | 2025-06-14 08:35 | P.PNUR_ITS ---
Progress Note: A&P Assessment and Plan (1) Urinary retention: Code(s): R33.9 - Retention of urine, unspecified Status: Acute (2) Hydrocele in adult: Code(s): N43.3 - Hydrocele, unspecified Status: Acute Assessment and Plan: * Continue both finasteride and tamsulosin. * Plan voiding trial in 2-3 days * If discharged today follow-up in 2-3 weeks to check efficacy of voiding and at that time we can make arrangements for hydrocelectomy Subjective Subjective Date/Time Seen: 06/14/25 08:35 Interval history: Patient still has multiple complaint (scrotal swelling, size of his bedside commode, pain from ingrown toenails, etc) but at least he is more comfortable with his [place] catheter following switch from 14F to 18F. Review of Systems Review of Systems: All systems reviewed & are unremarkable except as noted in HPI and below Exam Const: General: no acute distress Resp: Effort & Inspection: normal respiratory effort GI: Inspection: non-distended GI Palp: No abdominal tenderness and No Guarding due to palpation present (GI) Auscultation: normal bowel sounds Objective Data Vital Signs Vital Signs: Vital Signs - 24 hr 06/13/25 14:00 06/13/25 20:00 06/13/25 20:29 Temperature 97.8 F 97.5 F L Pulse Rate 78 79 79 Respiratory Rate 18 20 20 Blood Pressure 119/65 108/64 Pulse Oximetry 96 99 99 Oxygen Delivery Room Air Fraction of Inspired Oxygen 21 06/14/25 05:15 06/14/25 08:32 Temperature 98.0 F Pulse Rate 72 72 Respiratory Rate 18 Blood Pressure 124/63 Pulse Oximetry 98 Oxygen Delivery Fraction of Inspired Oxygen Intake/Output Intake/Output: Intake & Output 06/11/25 06/12/25 06/13/25 06/14/25 23:59 23:59 23:59 22:59 Intake Total 2961.7 1400 1438 250 Output Total 600 2100 925 500 Balance 2361.7 -700 513 -250 Meds/Results Medications: Active Medications Generic Name Dose Route Start Last Admin Trade Name Freq PRN Reason Stop Dose Admin Acetaminophen 650 mg 06/10/25 07:32 06/13/25 13:24 Acetaminophen 325 Mg Tablet PO 650 mg Q4H PRN Administration Mild Pain (1-3) or Fever Atorvastatin Calcium 40 mg 06/10/25 09:00 06/14/25 08:31 Atorvastatin 40 Mg Tablet PO 40 mg DAILY SUHA Administration Bacitracin/Polymyxin B Sulfate 1 applic 06/13/25 14:00 06/14/25 08:31 Bacitracin/Polymyxin B Oint 15 Gm Tube TOPICAL 1 applic DAILY SUHA Administration Bisacodyl 5 mg 06/10/25 07:32 Bisacodyl 5 Mg Tablet Ec PO DAILY PRN Constipation Cefpodoxime Proxetil 200 mg 06/13/25 09:00 06/14/25 08:31 Cefpodoxime Proxetil 200 Mg Tablet PO 06/19/25 21:01 200 mg Q12HR SUHA Administration Dabigatran 150 mg 06/10/25 17:00 06/14/25 08:31 Dabigatran Etexilate 150 Mg Capsule PO 150 mg BID SUHA Administration Doxycycline Hyclate 100 mg 06/13/25 09:00 06/14/25 08:31 Doxycycline Hyclate 100 Mg Tablet PO 06/19/25 21:01 100 mg Q12HR SUHA Administration Furosemide 60 mg 06/12/25 09:00 06/14/25 08:31 Furosemide 20 Mg Tablet PO 60 mg DAILY [facility] Administration Lidocaine HCl 1 applic 06/13/25 13:30 06/13/25 13:26 Lidocaine 2% Jelly 5 Ml Tube MUCOUS MEM 1 applic QID PRN Administration Pain Melatonin 5 mg 06/11/25 21:00 06/13/25 21:02 Melatonin 5 Mg Tablet PO 5 mg HS SUHA Administration Metoprolol Succinate 150 mg 06/10/25 09:00 06/14/25 08:32 Metoprolol Succinate Ext Rel 50 Mg Tabcr PO 150 mg DAILY SUHA Administration Ondansetron HCl 4 mg 06/10/25 07:32 Ondansetron Inj 4 Mg/2 Ml Vial IV PUSH Q6H PRN Nausea And Vomiting Potassium Chloride 10 meq 06/10/25 09:00 06/14/25 08:32 Potassium Chloride 10 Meq Er Tablet PO 10 meq BID SUHA Administration Tamsulosin HCl 0.4 mg 06/10/25 09:25 06/14/25 08:32 Tamsulosin Hcl 0.4 Mg Capsule PO 0.4 mg QAM SUHA Administration
--- NOTE | 2025-06-14 10:26 | PM.IMPN ---
Progress Note: A&P Assessment and Plan (1) Cellulitis: Qualifiers: Laterality: right Site of cellulitis: extremity Site of cellulitis of extremity: lower extremity Qualified Code(s): L03.115 - Cellulitis of right lower limb Code(s): L03.90 - Cellulitis, unspecified Status: Acute Assessment and Plan: Switched to p.o. antibiotics today. wbc 12.4 on admission, today 9.4 wound nurse consult for open areas and weeping pain control some improvement in erythema, warmth and edema noted on exam today Waiting for placement. (2) Acute on chronic urinary retention: Code(s): R33.9 - Retention of urine, unspecified Status: Acute Assessment and Plan: patient had a grubbs catheter placed on 06/03 due to urinary retention while in the ER when patient presented 06/09 there was noted purulent drainage at the meatus and grubbs catheter was not draining grubbs catheter changed in ER patient started on tamsulosin this admission consult urology, recs appreciated f/u urine cultures patient will be discharged with grubbs catheter in place and will f/u with urology 2 weeks after discharge for a voiding trial (3) LORE (acute kidney injury): Code(s): N17.9 - Acute kidney failure, unspecified Status: Acute Assessment and Plan: BUN 24, Cr 1.35 s/p IV fluids x 24 hours improved, BUN 22, Cr 1.21 AM labs (4) Acute cystitis with hematuria: Code(s): N30.01 - Acute cystitis with hematuria Status: Acute Assessment and Plan: UA with 2+ leukocyte esterase, >100 RBC 6-10 WBC f/u urine cultures f/u cultures from ureteral meatus continue IV ceftriaxone AM labs (5) A-fib: Qualifiers: Atrial fibrillation type: unspecified Qualified Code(s): I48.91 - Unspecified atrial fibrillation Code(s): I48.91 - Unspecified atrial fibrillation Status: Acute Assessment and Plan: continue Pradaxa for anticoagulation continue metoprolol for rate control (6) CHF (congestive heart failure): Code(s): I50.9 - Heart failure, unspecified Status: Acute Assessment and Plan: Stable on current medications, will continue current treatment. (7) Chronic obstructive pulmonary disease, unspecified: Code(s): J44.9 - Chronic obstructive pulmonary disease, unspecified Status: Acute Assessment and Plan: no signs of exacerbation no home medications currently (8) BPH (benign prostatic hyperplasia): Code(s): N40.0 - Benign prostatic hyperplasia without lower urinary tract symptoms Status: Acute Assessment and Plan: started on tamsulosin this admission urology consult appreciated Subjective Date/time seen: 06/14/25 10:26 Interval history: Patient was seen during the morning rounds today. No new overnight complaints. No shortness of breath or chest pain. Review of Systems Review of Systems: All systems reviewed & are unremarkable except as noted in HPI and below Exam Const: General: comfortable and no acute distress HENMT: Face/Nose/Sinus: Normal nares present Mouth: Yes moist mucous membranes Eyes: General: appearance normal, both eyes and all related structures Sclera: sclerae normal Neck: Neck: supple Resp: Effort & Inspection: normal respiratory effort Auscultation: clear to auscultation bilaterally Cardio: Rate: regular rate Rhythm: regular rhythm GI: Auscultation: normal bowel sounds Urinary Catheter: Urinary Catheter: patent and draining and urine cloudy Skin: Other: Left great toe with healing nailbed from nail removal. Right great toe with healing nailbed from nail removal with scant drainage noted and erythema noted. Neuro: Speech: normal speech Motor exam (neuro): 5/5 motor strength present throughout Sensory Exam: normal sensation Extrem: Other: chronic lymphedema BLE, RLE more edematous from foot to thigh, with erythema and warmth from foot to knee with some erythema extending to thigh area. RLE with some open areas and weeping noted. Objective Data Vital Signs Vital Signs: Vital Signs - 24 hr 06/13/25 14:00 06/13/25 20:00 06/13/25 20:29 Temperature 36.6 C 36.4 C L Pulse Rate 78 79 79 Respiratory Rate 18 20 20 Blood Pressure 119/65 108/64 Pulse Oximetry 96 99 99 Oxygen Delivery Room Air Fraction of Inspired Oxygen 21 06/14/25 05:15 06/14/25 08:32 Temperature 36.7 C Pulse Rate 72 72 Respiratory Rate 18 Blood Pressure 124/63 Pulse Oximetry 98 Oxygen Delivery Fraction of Inspired Oxygen Intake/Output Intake/Output: Intake & Output 06/11/25 06/12/25 06/13/25 06/14/25 23:59 23:59 23:59 22:59 Intake Total 2961.7 1400 1438 490 Output Total 600 2100 925 500 Balance 2361.7 -700 513 -10 Meds/Results Medications: Active Medications Generic Name Dose Route Start Last Admin Trade Name Freq PRN Reason Stop Dose Admin Acetaminophen 650 mg 06/10/25 07:32 06/13/25 13:24 Acetaminophen 325 Mg Tablet PO 650 mg Q4H PRN Administration Mild Pain (1-3) or Fever Atorvastatin Calcium 40 mg 06/10/25 09:00 06/14/25 08:31 Atorvastatin 40 Mg Tablet PO 40 mg DAILY SUHA Administration Bacitracin/Polymyxin B Sulfate 1 applic 06/13/25 14:00 06/14/25 08:31 Bacitracin/Polymyxin B Oint 15 Gm Tube TOPICAL 1 applic DAILY SUHA Administration Bisacodyl 5 mg 06/10/25 07:32 Bisacodyl 5 Mg Tablet Ec PO DAILY PRN Constipation Cefpodoxime Proxetil 200 mg 06/13/25 09:00 06/14/25 08:31 Cefpodoxime Proxetil 200 Mg Tablet PO 06/19/25 21:01 200 mg Q12HR SUHA Administration Dabigatran 150 mg 06/10/25 17:00 06/14/25 08:31 Dabigatran Etexilate 150 Mg Capsule PO 150 mg BID SUHA Administration Doxycycline Hyclate 100 mg 06/13/25 09:00 06/14/25 08:31 Doxycycline Hyclate 100 Mg Tablet PO 06/19/25 21:01 100 mg Q12HR SUHA Administration Furosemide 60 mg 06/12/25 09:00 06/14/25 08:31 Furosemide 20 Mg Tablet PO 60 mg DAILY SUHA Administration Lidocaine HCl 1 applic 06/13/25 13:30 06/13/25 13:26 Lidocaine 2% Jelly 5 Ml Tube MUCOUS MEM 1 applic QID PRN Administration Pain Melatonin 5 mg 06/11/25 21:00 06/13/25 21:02 Melatonin 5 Mg Tablet PO 5 mg HS SUHA Administration Metoprolol Succinate 150 mg 06/10/25 09:00 06/14/25 08:32 Metoprolol Succinate Ext Rel 50 Mg Tabcr PO 150 mg DAILY SUHA Administration Ondansetron HCl 4 mg 06/10/25 07:32 Ondansetron Inj 4 Mg/2 Ml Vial IV PUSH Q6H PRN Nausea And Vomiting Potassium Chloride 10 meq 06/10/25 09:00 06/14/25 08:32 Potassium Chloride 10 Meq Er Tablet PO 10 meq BID SUHA Administration Tamsulosin HCl 0.4 mg 06/10/25 09:25 06/14/25 08:32 Tamsulosin Hcl 0.4 Mg Capsule PO 0.4 mg QAM SUHA Administration Quality VTE Prophylaxis VTE prophylaxis: pharmacologic ordered
[2025-06-14 14:00] VITALS: BP 122/51; PULSE 74; RESP 17; TEMP 36.4; O2SAT 98
[2025-06-14 20:00] VITALS: PULSE 54; RESP 18; O2SAT 97
[2025-06-14 20:45] VITALS: BP 119/56; PULSE 54; RESP 18; TEMP 36.6; O2SAT 97
[2025-06-14] MEDS: MELATONIN 5 MG TABLET PO (21:14)
[2025-06-15 05:29] VITALS: BP 134/68; PULSE 67; RESP 18; TEMP 36.7; O2SAT 97
[2025-06-15 08:18] VITALS: PULSE 89
[2025-06-15] MEDS: METOPROLOL SUCCINATE EXT REL 50 MG TABCR 150 MG PO (08:18)
[2025-06-15] MEDS: FUROSEMIDE 20 MG TABLET 60 MG PO (08:18)
[2025-06-15] MEDS: CEFPODOXIME PROXETIL 200 MG TABLET PO (08:18)
[2025-06-15] MEDS: DOXYCYCLINE HYCLATE 100 MG TABLET PO (08:19)
[2025-06-15] MEDS: BACITRACIN/POLYMYXIN B OINT 15 GM TUBE 1 APPLIC TOPICAL (08:19)
[2025-06-15] MEDS: POTASSIUM CHLORIDE 10 MEQ ER TABLET PO (08:19)
[2025-06-15] MEDS: TAMSULOSIN HCL 0.4 MG CAPSULE PO (08:19)
[2025-06-15] MEDS: ATORVASTATIN 40 MG TABLET PO (08:19)
[2025-06-15] MEDS: DABIGATRAN ETEXILATE 150 MG CAPSULE PO (08:19)
--- NOTE | 2025-06-15 08:49 | WPDUROPN2 ---
Progress Note: A&P Assessment and Plan (1) Urinary retention: Code(s): R33.9 - Retention of urine, unspecified Status: Acute Assessment and Plan: - Void trial in the next 1-2 days - If pt dischaged prior, maintain Beltrán catheter on discharge and pt to follow up in 1 week for outpatient void trial (2) Hydrocele: Qualifiers: Hydrocele type: other Qualified Code(s): N43.2 - Other hydrocele Code(s): N43.3 - Hydrocele, unspecified Status: Acute Assessment and Plan: - Discuss hydrocelectomy as outpatient Subjective Subjective Date/Time Seen: 06/15/25 08:49 Interval history: NAEO; resting comfortably in bed. Beltrán draining clear, yellow urine without issue. Exam Const: General: comfortable and no acute distress Eyes: General: appearance normal, both eyes and all related structures Resp: Effort & Inspection: normal respiratory effort Urinary Catheter: Urinary Catheter: patent and draining and urine clear Skin: General skin exam: normal color Neuro: Speech: normal speech Extrem: General: normal to inspection Objective Data Vital Signs Vital Signs: Vital Signs - 24 hr 06/14/25 14:00 06/14/25 20:00 06/14/25 20:45 Temperature 36.4 C 36.6 C Pulse Rate 74 54 L 54 L Respiratory Rate 17 18 18 Blood Pressure 122/51 L 119/56 L Pulse Oximetry 98 97 97 Oxygen Delivery Room Air Fraction of Inspired Oxygen 21 06/15/25 05:29 06/15/25 08:18 Temperature 36.7 C Pulse Rate 67 89 Respiratory Rate 18 Blood Pressure 134/68 Pulse Oximetry 97 Oxygen Delivery Fraction of Inspired Oxygen Intake/Output Intake/Output: Intake & Output 06/12/25 06/13/25 06/14/25 06/15/25 23:59 23:59 22:59 23:59 Intake Total 1400 1438 1120 150 Output Total 2100 925 8 500 Balance -700 324 -901 -581 Meds/Results Medications: Active Medications Generic Name Dose Route Start Last Admin Trade Name Freq PRN Reason Stop Dose Admin Acetaminophen 650 mg 06/10/25 07:32 06/13/25 13:24 Acetaminophen 325 Mg Tablet PO 650 mg Q4H PRN Administration Mild Pain (1-3) or Fever Atorvastatin Calcium 40 mg 06/10/25 09:00 06/15/25 08:19 Atorvastatin 40 Mg Tablet PO 40 mg DAILY SUHA Administration Bacitracin/Polymyxin B Sulfate 1 applic 06/13/25 14:00 06/15/25 08:19 Bacitracin/Polymyxin B Oint 15 Gm Tube TOPICAL 1 applic DAILY SUHA Administration Bisacodyl 5 mg 06/10/25 07:32 Bisacodyl 5 Mg Tablet Ec PO DAILY PRN Constipation Cefpodoxime Proxetil 200 mg 06/13/25 09:00 06/15/25 08:18 Cefpodoxime Proxetil 200 Mg Tablet PO 06/19/25 21:01 200 mg Q12HR SUHA Administration Dabigatran 150 mg 06/10/25 17:00 06/15/25 08:19 Dabigatran Etexilate 150 Mg Capsule PO 150 mg BID SUHA Administration Doxycycline Hyclate 100 mg 06/13/25 09:00 06/15/25 08:19 Doxycycline Hyclate 100 Mg Tablet PO 06/19/25 21:01 100 mg Q12HR SUHA Administration Furosemide 60 mg 06/12/25 09:00 06/15/25 08:18 Furosemide 20 Mg Tablet PO 60 mg DAILY SUHA Administration Lidocaine HCl 1 applic 06/13/25 13:30 06/13/25 13:26 Lidocaine 2% Jelly 5 Ml Tube MUCOUS MEM 1 applic QID PRN Administration Pain Melatonin 5 mg 06/11/25 21:00 06/14/25 21:14 Melatonin 5 Mg Tablet PO 5 mg HS SUHA Administration Metoprolol Succinate 150 mg 06/10/25 09:00 06/15/25 08:18 Metoprolol Succinate Ext Rel 50 Mg Tabcr PO 150 mg DAILY SUHA Administration Ondansetron HCl 4 mg 06/10/25 07:32 Ondansetron Inj 4 Mg/2 Ml Vial IV PUSH Q6H PRN Nausea And Vomiting Potassium Chloride 10 meq 06/10/25 09:00 06/15/25 08:19 Potassium Chloride 10 Meq Er Tablet PO 10 meq BID SUHA Administration Tamsulosin HCl 0.4 mg 06/10/25 09:25 06/15/25 08:19 Tamsulosin Hcl 0.4 Mg Capsule PO 0.4 mg QAM SUHA Administration
[2025-06-15 13:46] VITALS: BP 123/66; PULSE 73; RESP 16; TEMP 36.6; O2SAT 91
--- NOTE | 2025-06-15 13:53 | PM.DS ---
DS: Admitting Diagnosis Discharge Date 06/15/25 Admitting Diagnosis Cellulitis of lower extremity DS: Discharge Diagnosis Discharge Diagnosis (1) Essential (primary) hypertension: Code(s): I10 - Essential (primary) hypertension Status: Acute (2) Benign hypertension with coincident congestive heart failure: Code(s): I11.0 - Hypertensive heart disease with heart failure Status: Acute (3) A-fib: Qualifiers: Atrial fibrillation type: unspecified Qualified Code(s): I48.91 - Unspecified atrial fibrillation Code(s): I48.91 - Unspecified atrial fibrillation Status: Acute (4) Acute on chronic urinary retention: Code(s): R33.9 - Retention of urine, unspecified Status: Acute (5) BPH (benign prostatic hyperplasia): Code(s): N40.0 - Benign prostatic hyperplasia without lower urinary tract symptoms Status: Acute (6) Cellulitis: Qualifiers: Laterality: right Site of cellulitis: extremity Site of cellulitis of extremity: lower extremity Qualified Code(s): L03.115 - Cellulitis of right lower limb Code(s): L03.90 - Cellulitis, unspecified Status: Acute DS: Summary Hospital Course Reason for hospitalization: Cellulitis of lower extremity Hospital Course: 79 years old male with history of multiple medical problems admitted complained of having infection the lower extremity. Patient was given IV antibiotics. Urine culture turned out to be negative. Beltrán catheter was placed. Urology was consulted. Patient will have outpatient follow-up with Urology for voiding trial. Was treated with ceftriaxone was discharged on doxycycline and Cefpodoxime. Patient is being discharged home in stable condition with home health Status at Discharge Overall status at discharge: patient is progressing back to baseline Time Spent with Patient Time attestation: Total time spent providing and/or coordinating discharge services:33 mins Exam Const: General: comfortable and no acute distress HENMT: Mouth: Yes moist mucous membranes Eyes: Sclera: sclerae normal Neck: Neck: supple Resp: Effort & Inspection: normal respiratory effort Auscultation: clear to auscultation bilaterally Cardio: Rate: regular rate Rhythm: regular rhythm GI: Auscultation: normal bowel sounds Skin: Other: Left great toe with healing nailbed from nail removal. Right great toe with healing nailbed from nail removal with scant drainage noted and erythema noted. Neuro: Speech: normal speech Extrem: Other: chronic lymphedema BLE, RLE more edematous from foot to thigh, with erythema and warmth from foot to knee with some erythema extending to thigh area. RLE with some open areas and weeping noted. DS: Data Data Completed and Pending Labs on day of discharge: Preliminary micro results at discharge 06/10/25 05:10 Genital Culture - Preliminary Penis 06/10/25 05:02 Blood Culture - Preliminary Blood 06/10/25 05:10 Blood Culture - Preliminary Blood Discharge Plan Discharge Attending physician on discharge: Jeremiah Honeycutt Consulting providers: Callie Woodruff Discharging Clinician: Jeremiah Honeycutt Patient Disposition: Home Activity: as tolerated Diet: as tolerated Patient Instructions: Antibiotic Form, Safe Use of Anticoagulants (DC) Patient Language: [place] Stand Alone Forms: General Discharge Information Follow-up/Referrals: Callie Woodruff MD [Physician, Urology] Hunter Astorga MD [Primary Care Provider, [facility]] Discharge Medications: New cefpodoxime 200 mg Tablet 200 mg PO Q12HR 14 Days Qty: 28 0RF tamsulosin 0.4 mg Capsule 0.4 mg PO QAM Qty: 30 0RF bisacodyl [Laxative (bisacodyl)] 5 mg Tablet,Delayed Release (Dr/Ec) 5 mg PO DAILY PRN (Reason: Constipation) Qty: 30 0RF doxycycline hyclate 100 mg Tablet 100 mg PO Q12HR Qty: 28 0RF melatonin 5 mg Tablet 5 mg PO HS Qty: 30 0RF Continued atorvastatin 40 mg tablet 40 mg PO DAILY Pradaxa 150 mg capsule 150 mg PO BID metoprolol succinate [Toprol XL] 50 mg tablet extended release 24 hr 150 mg PO DAILY furosemide 40 mg tablet 60 mg PO DAILY Qty: 135 1RF potassium chloride [Klor-Con 10] 10 mEq tablet extended release 10 meq PO BID Qty: 180 1RF Date of admission: 06/10/25 06:26 Primary Care Provider: Hunter Astorga Admitting Provider: Dottie Ruiz Attending physician on admission: Dottie Ruiz Condition: Stable
[2025-06-15] MEDS: INFLUENZA VACCINE HIGH DOSE (>64) 180 MCG/0.5 ML SYRINGE IM (15:02)
== END 2025-06-15 15:00 | disposition home health service (06) | DRG 603 ==
LOC: ANHED 05:32 → ANH2MED 06:56
PROVIDERS: Nurse Practitioner Adult Health; Admitting Provider Internal Medicine; Emergency Provider Student in an Organized Health Care Education/Training Program; PCP Family Medicine; Visit Provider Internal Medicine
DX: L03.115 Cellulitis of right lower limb (principal); I48.20 Chronic atrial fibrillation, unspecified; I50.32 Chronic diastolic (congestive) heart failure; N17.9 Acute kidney failure, unspecified; N30.01 Acute cystitis with hematuria; N40.1 Benign prostatic hyperplasia with lower urinary tract symptoms; R33.8 Other retention of urine; L90.0 Lichen sclerosus et atrophicus; Z23 Encounter for immunization; I11.0 Hypertensive heart disease with heart failure; J44.9 Chronic obstructive pulmonary disease, unspecified; E78.5 Hyperlipidemia, unspecified; N48.83 Acquired buried penis; Z91.148 Patient's other noncompliance with medication regimen for other reason; N43.3 Hydrocele, unspecified
CPT/HCPCS: 36415; 80053; 81001; 82948; 83605; 85025; 85027; 87040; 87086; 90471; 90662; 93005; 96365; 96375; 97116; 97162; 97166; 97530; 97535; 99285; A9270; G0008; J0696; J1171; J1650; J3373; J7030